=== PATIENT | female | born 1945 | race Caucasian/White ===

== ENCOUNTER 2016-09-22 17:14 | Emergency (ER) | payer MEDICARE ==
[~2016-09-22] VITALS: Ht 160 cm; Wt 68.9 kg
[~2016-09-22 17:14] MED LIST: ALPRAZOLAM0.5 M3 PO; AMLODIPINE BESYL5 MG PO; ASPIRIN ADULT L81 M1 PO; ASPIRIN81 M1 PO; CIPROFLOXACIN500 MG PO; CYCLOBENZAPRINE10 MG PO; Carafate1 GM/10 ML NG; DUONEB 3 MG/3 ML3 M1 INH; HYDROCHLOROTHIA25 MG PO; HYDROCODONE BIT1 T11 PO; HYDRODIURIL25 MG PO; LEVOFLOXACIN500 MG PO; LIPITOR10 MG PO; LIPITOR20 MG PO; LISINOPRIL20 MG PO; METOPROLOL SR25 MG PO; Meclizine25 MG PO; NAPROSYN500 MG PO; NEBULIZER NEB; NIFEREX-150 501 CA1 PO; NORVASC10 MG PO; OMEGA 3 PO; OXYGEN NAS; PLAVIX75 M1 PO; PLAVIX75 MG PO; PRILOSEC20 MG PO; PROTONIX TR40 MG PO; RANITIDINE150 MG PO; SIMVASTATIN40 MG PO; SPIRIVA RESPIMAT4 G1 IH; TOPROL XL25 MG PO; VITAMIN D2400 IU PO; VITAMIN D50000 I3 PO; ZOFRAN ODT4 MG SL
[2016-09-22 17:23] VITALS: BP 188/63
[2016-09-22] MEDS ORDERED: Flovent 220 M220 MCG INH (17:24)
[2016-09-22] MEDS ORDERED: METOPROLOL TART50 M1 PO (17:25)
[2016-09-22] MEDS ORDERED: ATORVASTATIN CA20 M1 PO (17:25)
[2016-09-22] MEDS ORDERED: OYSTER SHELL CA1 T20 PO (17:25)
[2016-09-22] MEDS ORDERED: HYDROCODONE BIT1 T11 PO (19:19)
== END 2016-09-22 19:18 | disposition home or self-care (01) ==
LOC: ED 17:14
DX: S29.011A Strain of muscle and tendon of front wall of thorax, initial encounter (principal); Z88.8 Allergy status to other drugs, medicaments and biological substances; Z79.899 Other long term (current) drug therapy; Z99.81 Dependence on supplemental oxygen; W22.8XXA Striking against or struck by other objects, initial encounter; Y93.89 Activity, other specified; Y92.023 Bedroom in mobile home as the place of occurrence of the external cause; Y99.9 Unspecified external cause status

== ENCOUNTER 2016-09-25 16:18 | Emergency (ER) | payer MEDICARE ==
[~2016-09-25] VITALS: Ht 162.5 cm; Wt 69.9 kg
[~2016-09-25 16:18] MED LIST changes: +ATORVASTATIN CA20 M1 PO; +Flovent 220 M220 MCG INH; +METOPROLOL TART50 M1 PO; +OYSTER SHELL CA1 T20 PO
[2016-09-25 16:24] VITALS: BP 172/62
[2016-09-25] MEDS ORDERED: AVPAK AZITHROM250 M1 PO (17:43)
== END 2016-09-25 17:49 | disposition home or self-care (01) ==
LOC: ED 16:18
DX: J02.9 Acute pharyngitis, unspecified (principal); J84.10 Pulmonary fibrosis, unspecified; Z88.8 Allergy status to other drugs, medicaments and biological substances; Z90.49 Acquired absence of other specified parts of digestive tract; Z79.899 Other long term (current) drug therapy

== ENCOUNTER 2016-11-07 20:37 | Inpatient (IN) | payer MEDICARE ==
[~2016-11-07] VITALS: Ht 157.5 cm; Wt 69.0 kg
--- NOTE | ~2016-11-07 | PR ---
[place], [place] PROGRESS NOTE NAME: [facility] #: [id number] UNIT #: [id number] ROOM: 405 DOCTOR: GALILEO BAILEY MD BIRTHDATE: [birth year] DOS: 11/11/2016 SUBJECTIVE: The patient is still getting dyspnea on exertion and short of breath when walking, although she has been insisting on going home for 2 days now. PHYSICAL EXAMINATION: GENERAL APPEARANCE: The patient is alert and oriented x 3, in no visible distress. VITAL SIGNS: Blood pressure 146/46, heart rate 75 beats per minute, breathing 18 times a minute, temperature of 98.1 degrees Fahrenheit. HEENT AND NECK: Exam within normal limits. CARDIOVASCULAR SYSTEM: Heart rate is regular in rate and rhythm. S1 and S2 normally audible. LUNGS: Somewhat decreased breath sounds. ABDOMEN: Soft, nontender. No obvious organomegaly. Bowel sounds are present. EXTREMITIES: Without significant cyanosis or edema. ASSESSMENT: 1. The patient had acute exacerbation of chronic obstructive pulmonary disease, slowly improving with treatment, but patient still gets short of breath with exertion and becomes hypoxemic. The patient's pulse ox dropped to 85% with ambulation, so she will continue to stay at the hospital for 1 more day for treatment. 2. Benign essential hypertension with controlled blood pressure with treatment. 3. Chronic respiratory failure and oxygen dependence. 4. Chronic obstructive pulmonary disease. 5. Pulmonary fibrosis. 5. Adult failure to thrive. GALILEO BAILEY MD CM:PNTRANS [id number] GALILEO BAILEY MD 11/12/16 0237 interface
--- NOTE | ~2016-11-07 | CON ---
[place], [place] REPORT OF CONSULTATION NAME: KAREL FLORES UNIT #: [id number] ROOM: 405 DOCTOR: KIMANI ARRIOLA MD BIRTHDATE: [birth year] DOS: 11/10/2016 HISTORY OF PRESENT ILLNESS: A 70-year-old female admitted with significant difficulty in breathing. No obvious chest pain. Complains of heartburn. No palpitations. No acute EKG changes suggestion of myocardial injury or infarction. The patient was exerting herself and developed a heartburn. PAST MEDICAL HISTORY: Significant for pulmonary fibrosis, hypertension, aspirin-induced platelet dysfunction, history of GI bleed, history of CVA, chronic respiratory failure. MEDICATIONS: She was on Flovent, DuoNebs, amlodipine, Plavix, and metoprolol. SOCIAL HISTORY: Nonsmoker. Does not use alcohol. Lives at home. REVIEW OF SYSTEMS: CONSTITUTIONAL: No fever, no chills. HEENT: No visual disturbances or hearing problems. CARDIOVASCULAR: As described in HPI. GASTROINTESTINAL: No nausea, no vomiting. GENITOURINARY: No dysuria, hematuria. NEUROLOGIC: Stable. PHYSICAL EXAMINATION: GENERAL: The patient is alert, awake. Hemodynamically stable. VITAL SIGNS: Blood pressure is 140/50. She is in sinus rhythm. HEENT: Unremarkable. NECK: Supple, no JVD. LUNGS: Diminished breath sounds. HEART: Heart sounds are regular. Echocardiogram review showed an excellent ejection fraction. Chest x-ray shows chronic lung disease, mild pulmonary vascular congestion, no evidence of any congestive heart failure. LABORATORY DATA: Hemoglobin 12.6, hematocrit 36.6. Cardiac enzymes are normal. Troponin is negative. Creatinine is 1.4. Echo showed an excellent ejection fraction. IMPRESSION: The patient with acute respiratory distress syndrome, tracheobronchitis. Echo showed an excellent ejection fraction. I do not think this heartburn is related to cardiac. If she has further symptoms, consideration should be given for a stress test. In the meantime, continue the Cardizem 240 daily and the antibiotics as ordered and metoprolol, atorvastatin, clopidogrel, and we will follow up. [place], [place] REPORT OF CONSULTATION NAME: KAREL FLORES UNIT #: [id number] ROOM: 405 DOCTOR: KIMANI ARRIOLA MD BIRTHDATE: [birth year] KIMANI ARRIOLA MD CM:CONSTR:REPORT OF CONSULTATION 0635 11/10/16 1032 interface
--- NOTE | ~2016-11-07 | PR ---
[place], [place] PROGRESS NOTE NAME: KAREL FLORES UNIT #: [id number] ROOM: 405 DOCTOR: ARDEN BIGGS MD BIRTHDATE: [birth year] DOS: 11/09/2016 SUBJECTIVE: The patient is doing fairly well. Her breathing has improved, but during the night, she had one episode of palpitations. Her heart rate went up to 120s. She was just getting up out of bed to plug her phone in, and she got back in bed and noticed that her heart was racing. She does not have any chest pains or palpitations. PHYSICAL EXAMINATION: GENERAL: Today, she is awake and alert and oriented. VITAL SIGNS: Graphic trend shows a pressure of 134/60, pulse of 95, respirations 18, temperature 98.0. LUNGS: Clear. HEART: Regular. ABDOMEN: Obese, soft, nontender. EXTREMITIES: Without any edema. ASSESSMENT AND PLAN: 1. Acute exacerbation of chronic obstructive pulmonary disease. No known history of interstitial lung disease with acute respiratory distress syndrome. The patient also has chronic respiratory failure, stable on the current treatment plan. We did use the dose of the steroids. 2. Benign hypertension, controlled. We will try to avoid beta blockers, could cause more bronchospasm and also add Cardizem for better control of the heart rate. Also, switched the DuoNeb to Xopenex. 3. History of a cerebrovascular accident, on Plavix. She is unable to tolerate aspirin. I will ask Dr. Donato for an opinion. A stat troponin will be ordered to make sure that heartburn is not cardiac. ARDEN BIGGS MD CM:PNTRANS [id number] ARDEN BIGGS MD 11/09/16 0741 interface
--- NOTE | ~2016-11-07 | PR ---
[place], [place] PROGRESS NOTE NAME: KAREL FLORES UNIT #: [id number] ROOM: 405 DOCTOR: GALILEO BAILEY MD BIRTHDATE: [birth year] DOS: 11/12/2016 ADDENDUM SUBJECTIVE: The patient's discharge has been postponed for the last 2 days because she was getting hypoxemic when ambulating with oxygen. Today, her pulse ox did not drop below 91% with ambulation and she is feeling much better, so she will be discharged to home today. OBJECTIVE: VITAL SIGNS: Blood pressure 131/68, heart rate 92 beats per minute, breathing 20 times per minute, temperature 98 degrees Fahrenheit. GENERAL APPEARANCE: The patient is alert and oriented x 3, in no visible distress. HEENT AND NECK: Exam within normal limits. CARDIOVASCULAR SYSTEM: Heart rate is regular in rate and rhythm. S1 and S2 normally audible. LUNGS: Clear to auscultation. ABDOMEN: Soft, nontender. No obvious organomegaly. Bowel sounds are present. EXTREMITIES: Without significant cyanosis or edema. IMPRESSION: 1. Acute over chronic respiratory failure and exacerbation of chronic obstructive pulmonary disease, improved with treatment. The patient to be discharged to home on Medrol Dosepak and she will also take Augmentin for a week and follow up with her PCP on Monday. The patient takes oxygen 2 liters per minute by nasal cannula. 2. Chronic pulmonary fibrosis and chronic respiratory failure. 3. Postmenopausal osteoporosis, followed and treated. 4. Benign essential hypertension. Blood pressures to be monitored and controlled. GALILEO BAILEY MD CM:PNTRANS [phone] GALILEO BAILEY MD 11/12/168 interface
--- NOTE | ~2016-11-07 | DS ---
[place], [place] DISCHARGE SUMMARY NAME: KAREL FLORES UNIT #: [id number] ROOM: 405 DOCTOR: GALILEO BAILEY MD BIRTHDATE: [birth year] DOS: 11/10/2016 DISCHARGE DIAGNOSES: 1. Acute exacerbation of chronic obstructive pulmonary disease, improved with treatment. 2. Benign essential hypertension. 3. Chronic respiratory failure and oxygen dependence. 4. Chronic obstructive pulmonary disease. 5. Pulmonary fibrosis. 6. Cerebrovascular accident. 7. Benign essential hypertension. HOSPITAL COURSE: The patient presented to the Emergency Department. The patient was admitted by Dr. Pearson with complaints of acute respiratory failure and exacerbation of COPD, with previous history of chronic respiratory failure and pulmonary fibrosis. The patient was treated with corticosteroids and IV antibiotics and her breathing has improved. The patient chronically uses oxygen at home, which will be continued. The patient appears to have achieved maximum benefit from this admission and will be discharged to home to follow up with her PCP on Monday. Dr. Donato, the supervisor film processing was consulted who did not think that the patient's symptoms were of cardiac nature and she was started on Cardizem orally and beta blockers were stopped because of her acute respiratory failure. Echocardiogram was performed, which was normal. Benign essential hypertension with controlled blood pressures, now patient on Cardizem instead of beta vanessa and metoprolol. Blood pressure and heart rate are controlled. Previous history of CVA. The patient cannot tolerate aspirin, so she was continued on Plavix. LABORATORY DATA: Troponin I level was negative. Blood cultures negative. Blood gases were baseline. White cell count of 12,000, hemoglobin 12.6, normal differential count. DISCHARGE MANAGEMENT: 1. Medrol Dosepak, Augmentin for 1 week. The patient on Xopenex nebulizer treatments at home to continue every 6 hours, Protonix 40 mg b.i.d., Lipitor 20 mg a day, Plavix 75 mg a day, amlodipine 10 mg a day, Xanax 0.5 mg at bedtime p.r.n. 2. Followup with PCP on Monday. 3. Oxygen 2 liters per minute. [place], [place] DISCHARGE SUMMARY NAME: KAREL FLORES UNIT #: [id number] ROOM: 405 DOCTOR: GALILEO BAILEY MDDATE: [birth year] GALILEO BAILEY MD CM:ANA [phone] GALILEO BAILEY MD 11/10/162050 interface
--- NOTE | ~2016-11-07 | WRIGHTHP ---
[place], [place] PATIENT HISTORY AND PHYSICAL EXAM NAME: KAREL FLORES [facility] #: [id number] UNIT #: [id number] ROOM: 405 DOCTOR: ARDEN BIGGS MD BIRTHDATE: [birth year] DOS: 11/08/2016 HISTORY OF PRESENT ILLNESS: This patient is 70 years old. The patient is not known to me, comes in with complaints of difficulty breathing. She denies having any chest pains, palpitations, does not have any fever or chills, does not have any abdominal pain, nausea, any emesis. She is moving to another apartment and is exerting herself a lot. She is not sure whether the dust has caused this current exacerbation. PAST MEDICAL HISTORY: Significant for; 1. Last hospitalization in 11/2015 with GI bleed. 2. 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 3. Benign hypertension. 4. Postmenopausal osteoporosis. 5. Pulmonary fibrosis. 6. History of cerebrovascular accident. 7. Chronic respiratory failure. MEDICATIONS: That the patient currently on are Flovent 2 puffs twice daily, breathing treatments with DuoNeb q.4 hours., oxygen 2 liter per minute nasal cannula, amlodipine 10 daily, atorvastatin 20 daily, Plavix 75 daily, metoprolol 25 at bedtime and 50 mg in the morning, Protonix 40 daily. SOCIAL HISTORY: Nonsmoker, does not use any alcohol. Lives at home. PHYSICAL EXAMINATION: GENERAL: She is awake and alert and oriented, in mild respiratory distress. VITAL SIGNS: Temperature is 98.7, pulse of 70, respirations 20, afebrile. LUNGS: Diminished breath sounds. No wheezes, rales or rhonchi heard. HEART: Regular. ABDOMEN: Obese, soft, nontender. EXTREMITIES: Without any edema. ASSESSMENT AND PLAN: 1. Acute respiratory distress syndrome in a patient with chronic respiratory failure. The patient has been admitted. IV steroids and breathing treatments have been ordered. 2. Acute tracheobronchitis on antibiotics have been ordered. Chest x-ray shows no pathology other than chronic lung changes with possible mild vascular congestion. ABG does not show any evidence of hypoxemia this morning. We will order one dose of Lasix and an echocardiogram will be ordered. Her last echocardiogram was many years ago. 3. Benign hypertension, controlled. [place], [place] PATIENT HISTORY AND PHYSICAL EXAM NAME: KAREL FLORES UNIT #: [id number] ROOM: 405 DOCTOR: ARDEN BIGGS MD BIRTHDATE: [birth year] ARDEN BIGGS MD CM:HISPHYS:PATIENT HISTORY AND PHYSICAL EXAMINATION 5 9 ARDEN BIGGS MD 11/08/16829 interface
[~2016-11-07 20:37] MED LIST changes: +AVPAK AZITHROM250 M1 PO
[2016-11-07 20:54] VITALS: BP 180/84
[2016-11-07 20:59] LABS: BASO # 0.1 10*3/uL (0.0-0.1); BASO % 0.5 % (0.0-1.0); EOS # 0.2 10*3/uL (0.0-0.4); EOS % 1.5 % (1.0-4.0); HEMATOCRIT 36.7 % (37.0-47.0); HEMOGLOBIN 12.6 g/dl (12.0-16.0); LYMPH # 2.5 10*3/uL (1.3-4.4); LYMPH % 20.4 % (27.0-41.0); MEAN CELL VOLUME 88.2 fl (81.0-99.0); MEAN CORPUSCULAR HGB 30.3 pg (27.0-31.0); MEAN CORPUSCULAR HGB CONC 34.3 g/dl (33.0-37.0); MONO # 0.6 10*3/uL (0.1-1.0); NEUT # 8.8 10*3/uL (2.3-7.9); NEUT % 72.1 % (47.0-73.0); PLATELET COUNT AUTOMATED 281 10*3/uL (130-400); RED BLOOD COUNT 4.16 10*6/uL (4.10-5.10); RED CELL DISTRI WIDTH 13.8 % (0-14.5); WHITE BLOOD COUNT 12.2 10*3/uL (4.8-10.8)
[2016-11-07 21:16] LABS: ALBUMIN 3.7 gm/dl (3.1-4.5); CREATININE 1.44 mg/dL (0.55-1.02); MAGNESIUM 1.9 mg/dL (1.5-2.1); POTASSIUM 3.4 mmol/L (3.5-5.1); TOTAL PROTEIN 8.5 gm/dL (6.4-8.2)
[2016-11-07 21:17] LABS: TROPONIN I 0.043 ng/ml (<0.045)
[2016-11-07 21:59] VITALS: BP 148/61
[2016-11-07 23:54] LABS: ABG BASE EXCESS -1.1 mmol/L (-2.0-2.0); ABG HCO3 22.3 mmol/l (22-26); ABG O2 SATURATION 98.5 % (95-97); ARTERIAL BLOOD GAS PCO2 34.8 mmHg (35-45); ARTERIAL BLOOD GAS PH 7.423 (7.35-7.45)
[2016-11-08 00:45] VITALS: BP 160/51
[2016-11-08] MEDS ORDERED: METOPROLOL SUCC25 M2 PO (03:47)
[2016-11-08 08:00] VITALS: BP 123/65
[2016-11-08 12:00] VITALS: BP 128/58
[2016-11-08 16:00] VITALS: BP 143/73
[2016-11-08 20:00] VITALS: BP 129/71
[2016-11-09] VITALS: BP 134/60
[2016-11-09 08:00] VITALS: BP 151/79
[2016-11-09 12:00] VITALS: BP 135/61
[2016-11-09 16:00] VITALS: BP 142/58
[2016-11-09 20:00] VITALS: BP 126/49
[2016-11-10] VITALS: BP 143/54
[2016-11-10 08:00] VITALS: BP 143/51
[2016-11-10 16:00] VITALS: BP 139/56
[2016-11-10] MEDS ORDERED: DILTIAZEM CD240 MG PO (18:49)
[2016-11-10] MEDS ORDERED: MEDROL DOSEPAK4 MG PO (18:52)
[2016-11-10] MEDS ORDERED: AUGMENTIN 875-875 MG PO (18:52)
[2016-11-10 20:00] VITALS: BP 142/50
[2016-11-10 22:00] VITALS: BP 142/50
[2016-11-11] VITALS: BP 120/55; BP 142/50
[2016-11-11 08:00] VITALS: BP 135/43
[2016-11-11 12:00] VITALS: BP 144/62
[2016-11-11 16:00] VITALS: BP 146/46
[2016-11-11 20:00] VITALS: BP 139/68
[2016-11-12] VITALS: BP 130/65
[2016-11-12 08:00] VITALS: BP 114/52
[2016-11-12 12:00] VITALS: BP 120/98
[2016-11-12 16:00] VITALS: BP 131/68
== END 2016-11-12 17:15 | disposition home or self-care (01) | DRG 189 ==
LOC: ED 20:37 → 4E 23:45 → EDHOLD 23:45 → 4E 11-08 00:14
PROVIDERS: Emergency Medicine Emergency Medical Services; Family Medicine; ADMIT Internal Medicine
DX: J96.21 Acute and chronic respiratory failure with hypoxia (principal); J44.0 Chronic obstructive pulmonary disease with (acute) lower respiratory infection; J84.10 Pulmonary fibrosis, unspecified; Z99.81 Dependence on supplemental oxygen; J44.1 Chronic obstructive pulmonary disease with (acute) exacerbation; I10 Essential (primary) hypertension; J20.9 Acute bronchitis, unspecified; M81.0 Age-related osteoporosis without current pathological fracture; R62.7 Adult failure to thrive; Z86.73 Personal history of transient ischemic attack (TIA), and cerebral infarction without residual deficits

== ENCOUNTER 2016-11-23 18:26 | Inpatient (IN) | payer MEDICARE ==
[~2016-11-23] VITALS: Ht 160 cm; Wt 72.4 kg
--- NOTE | ~2016-11-23 | PR ---
[place], [place] PROGRESS NOTE NAME: KAREL FLORES UNIT #: [id number] [facility] DOCTOR: ARDEN BIGGS MD BIRTHDATE: [birth year] DOS: SUBJECTIVE: The patient is resting on the ventilator without any new problems in the last 24 hours. OBJECTIVE: VITAL SIGNS: Graphic trend shows a pressure 137/51, pulse of 88, respirations 23, temperature 98.5. LUNGS: Diminished breath sounds, few scattered wheezes heard. HEART: Regular. ABDOMEN: Obese, soft. EXTREMITIES: Without any edema. LABORATORY DATA: Sputum culture done on did show Pseudomonas aeruginosa, for the patient has been started on ceftazidime. Repeat urine culture done on the same day at a different time does not show any bacterial growth. Chest x-ray shows fibrotic changes, no other pathology was seen. ASSESSMENT AND PLAN: 1. Interstitial lung disease with pulmonary fibrosis with acute exacerbation causing acute hypoxic respiratory failure, status post intubation. 2. Benign hypertension, controlled with a negative stress test. 3. Carotid atherosclerosis with 50-69% stenosis bilaterally. The patient may require an MRA of the carotids at a later date when the patient is more able. 4. History of cerebrovascular accident, on Plavix and aspirin, which are being continued. RADEN BIGGS MD CM:PNTRANS [id number] ARDEN BIGGS MD 11/30/16 0325 interface
--- NOTE | ~2016-11-23 | PR ---
[place], [place] PROGRESS NOTE NAME: KAREL FLORES [facility] #: [id number] UNIT #: [id number] ROOM: 412 DOCTOR: ARDEN BIGGS MD BIRTHDATE: [birth year] DOS: 11/25/2016 SUBJECTIVE: The patient is not having any new complaints. Appreciate Dr. Muse's, Dr. Marie's and Dr. Donato's input. OBJECTIVE: VITAL SIGNS: Graphic trend shows a pressure of 135/65, pulse of 85, respirations 18, temperature 97.9. LUNGS: Clear. HEART: Regular. ABDOMEN: Obese, soft, nontender. EXTREMITIES: Without any edema. ASSESSMENT AND PLAN: 1. Acute exacerbation of chronic obstructive pulmonary disease with underlying pulmonary fibrosis on CT of the chest. The patient has been started on antibiotics and steroids. 2. Chronic respiratory failure with hypoxemia, possibly from underlying exacerbation of COPD. Steroids and antibiotics to be continued. 3. Benign hypertension, controlled with a negative stress test. 4. Precordial chest pain, negative stress test. Carotid Doppler was ordered today as advised by Dr. Muse. ARDEN BIGGS MD CM:PNTRANS 0850 [id number] ARDEN BIGGS MD 11/25/16 1652 interface
--- NOTE | ~2016-11-23 | PROC NOTE ---
[place], [place] PROCEDURE NOTE NAME: KAREL FLORES UNIT #: [id number] ROOM: [facility] DOCTOR: RE PLATA MD,MISHA BIRTHDATE: [birth year] DOS: 11/27/2016 PREOPERATIVE DIAGNOSES: The patient with hemoptysis, acute respiratory failure, and bilateral pulmonary infiltration. POSTOPERATIVE DIAGNOSES: The patient with hemoptysis, acute respiratory failure, and bilateral pulmonary infiltration. PROCEDURE DESCRIPTION: Informed consent obtained from the patient and family members. The patient was continued on mechanical ventilation for sedation. Procedure was done in negative pressure isolation Intensive Care Unit. The video fiberoptic bronchoscope advanced through the endotracheal tube, lower part of the trachea, which shows some clotted blood secretions, mixed with mucus, suctioned out to the sunday level. The tip of the endotracheal tube was noted just at the sunday level which was adjusted to 2.5 cm above the sunday level. After that, right upper, right middle, right lower, left upper, and lingular lower lobe bronchi were all examined. The patient was noted ____ mucus mixed with some old clotted blood, removed from the endobronchial tree bilaterally. Some superficial hemorrhages of the mucosa noted, may be related to suction trauma, but there was no active bleeding noted. The procedure was well tolerated by the patient without any complications. Bronchial washings sent for all the appropriate culture including cytology and for pneumocystis as well. Postoperative findings were discussed with the patient's family members in detail personally. MISHA GRIMALDO MD CM:PROCNOTE:PROCEDURE NOTE 1512 0820 MISHA PLATA MD
--- NOTE | ~2016-11-23 | PR ---
[place], [place] PROGRESS NOTE NAME: KAREL FLORES UNIT #: [id number] ROOM: [facility] DOCTOR: KIMANI ARRIOLA MD BIRTHDATE: [birth year] DOS: 11/29/2016 SUBJECTIVE: 24-hour events noted. Discussed with the nursing staff. The patient had a bronchoscopy done yesterday. The patient, I saw in the intensive care unit continues to be intubated. She had a stress test, which shows no evidence of ischemia. Ejection fraction well preserved. The patient has no further episodes, continues to be intubated. ABGs are much better. The patient is being seen by Dr. Marie and the patient has bad pulmonary fibrosis and she is being evaluated for that. She is on antibiotics and patient had recurrent episodes of Pseudomonas aeruginosa pneumonia. Medications have been adjusted and I discussed with Dr. Pearson also. Antibiotics have been changed. The patient's review of systems is not possible because of the critical nature and patient is intubated. PHYSICAL EXAMINATION: VITAL SIGNS: Blood pressure today is 130/50. The patient is in sinus rhythm. NECK: Supple, no JVD. LUNGS: Diminished breath sounds. HEART: Sounds are regular. ABDOMEN: Soft, nontender. NEUROLOGIC: Difficult to assess, but she is moving all the extremities. LABORATORY DATA: Hemoglobin 8.8, hematocrit 27.3. Electrolytes are normal. Creatinine is 1. Chest x-ray shows no significant change, diffuse interstitial disease throughout both lungs. IMPRESSION: 1. Pulmonary fibrosis. 2. Respiratory failure status post bronchoscopy. 3. History of a mild azotemia. 4. Hypertension. PLAN: Continue the present care. Continue the pulmonary toilet, continue antibiotics probably slowly wean her off from the ventilator. Condition is guarded and we will follow up. [place], [place] PROGRESS NOTE NAME: KAREL FLORES UNIT #: [id number] ROOM: [facility] DOCTOR: KIMANI ARRIOLA MD BIRTHDATE: [birth year] KIMANI ARRIOLA MD CM:PNTRANS [phone] KIMANI ARRIOLA MD 11/29/16 2328 interface
--- NOTE | ~2016-11-23 | PR ---
[place], [place] PROGRESS NOTE [id number] #: [id number] ROOM: [facility] DOCTOR: GALILEO BAILEY MD BIRTHDATE: [birth year] DOS: 11/26/2016 SUBJECTIVE: The patient with acute respiratory failure with bilateral interstitial infiltrates and lymphadenopathy, sarcoidosis versus chronic hypersensitivity pneumonitis is being considered. The patient is on BiPAP and may require intubation and mechanical ventilation. Dr. Marie is following. PHYSICAL EXAMINATION: VITAL SIGNS: Blood pressure 144/58, heart rate 92 beats per minute, breathing 30 times per minute, temperature 98 degrees Fahrenheit. GENERAL APPEARANCE: The patient is alert and oriented x 3, in no visible distress. Generalized weakness and morbid obesity. LUNGS: Clear to auscultation. ABDOMEN: Soft, nontender. No obvious organomegaly. Bowel sounds are present. EXTREMITIES: Without significant cyanosis or edema. IMPRESSION AND PLAN: 1. The patient has acute over chronic respiratory failure as mentioned above with bilateral interstitial infiltrates and lymphadenopathy, possible sarcoidosis versus chronic hypersensitivity pneumonitis, remains on BiPAP in the ICU and being closely monitored. 2. Acute pneumonia, being treated with ceftriaxone and followed by quarry plant crusher operator, Dr. Marie. The patient also has some leukocytosis with white cell count of 13,100. 3. Some hemoptysis, apparently secondary to pneumonitis. 4. Slight elevation of cardiac enzymes, and chest pains earlier on, being followed by Dr. Donato, the job site supervisor. Cardiac stress test was negative. 5. Benign essential hypertension. Blood pressure is being monitored, treated and controlled. GALILEO BAILEY MD CM:PNTRANS [id number] GALILEO BAILEY MD 11/27/16 1720 interface
--- NOTE | ~2016-11-23 | CON ---
[place], [place] REPORT OF CONSULTATION [id number] UNIT #: [id number] ROOM: 412 DOCTOR: RE PLATA MD,MISHA BIRTHDATE: [birth year] DOS: 11/24/2016 PULMONARY CONSULTATION, EVALUATION AND MANAGEMENT The patient was seen with [id number] encounter. The history and physical examination was personally performed. All the labs was personally reviewed. The note which has done by the medical record assistant was approved as well. This is a 70-year-old white female who has been known with past history of pulmonary fibrosis, admitted to the hospital. The patient of Dr. Alana Pearson on 11/23/2016. The patient has been admitted to the hospital. The patient was complaining of pain, which described as burning in the middle portion of the chest. She does have a coughing, which has been noted with clear sputum expectoration and blood-tinged sputum as well. She denies any symptoms of chest tightness. Denies any ____ angina pain. The troponin were noted mildly elevated as well. The patient has been recently hospitalized and admitted in the hospital, treated and discharged home with the medical management of abnormal respiratory symptoms. She was discharged home for the patient after medical management on 11/07/2016 to 11/10/2016. The patient stated that she has been noted with exertional hypoxia at that time as well, usually using oxygen supplementation 2 liters nasal cannula. REVIEW OF SYSTEMS: Already completed by the medical record assistant. Past medical history, family history, social history, surgical history: Please refer to my consultation of 11/18/2015 as well. MEDICATIONS: Listed as use of Lipitor, Protonix, Cardizem, Plavix, Norvasc, Lovenox 30 mg for DVT prophylaxis, DuoNeb, Xanax, and Flonase. DRUG ALLERGIES: The patient was noted as allergies to the Carafate. PHYSICAL EXAMINATION: GENERAL: A 70-year-old female who has been currently noted sitting comfortably on her bed without any distress. VITAL SIGNS: Height of 5 feet 3 inches, weight of 154 pounds, BMI 27.2. Normal temperature noted in the past 24 hours. Respiratory rate 16-20, heart rate 92-78, blood pressure 148/56-159/62. Intake was not recorded, output 500 mL recorded since last 24 hours. The pulse oxygen saturation on 4 L nasal cannula was noted as 93-96% saturation. HEENT: Shows mild obesity. Head was atraumatic. Eyes nonicterus. NECK: Supple. CARDIOVASCULAR: S1, S2 is audible. LUNGS: The patient was noted without any wheezing. Inspiratory crackles noted middle lower portion of the lungs bilaterally. ABDOMEN: Soft, nontender. Bowel sounds present. CENTRAL NERVOUS SYSTEM: Cranial nerves was noted without any focal deficit. Cranial nerve was noted 2-12 intact. No focal deficits. MUSCULOSKELETAL: No deformities. [place], [place] REPORT OF CONSULTATION NAME: KAREL FLORES UNIT #: [id number] ROOM: 412 DOCTOR: RE PLATA MD,MISHA BIRTHDATE: [birth year] SKIN: Shows area of bruising related to the current medication used by the patient. LABORATORY DATA: CBC of 96. WBC count 16.3, hemoglobin 11.4, hematocrit 34.5, platelet count was normal. CMP of 96, BUN 9, creatinine 1.12, troponin minimally elevated at 0.082 and there was still noted as some mass. Troponin of 0.94 in the last 24 hours assessment. Chest x-ray that was done, 1 view on 11/23/2016 shows patchy infiltration. The patient with pulmonary fibrosis, chronic changes noted in the lower lungs. CT scan of the chest that was done on 11/24/2016 without contrast was reviewed shows persistent [id number] mediastinal and hilar lymphadenopathy. The patient with a short dimension noted at 1.4 cm in size. The patient was noted with diffuse subpleural reticular infiltration with honeycombing with traction bronchiectasis. The patient predominantly in the upper lungs as well. There were patchy areas of ground glass opacity which has been noted appeared in the lower lungs as any finding as compared to the past. The CT scan of the chest comparison, which was done on her previous assessments on 11/17/2015. IMPRESSION: 1. The patient who has been currently admitted to the hospital with findings of hemoptysis has of interstitial lung disease. Current findings were not consistent with classical diagnosis of usual interstitial pneumonitis. Possibility of sarcoidosis. The patient remains in consideration versus chronic hypersensitivity pneumonitis, and lymphadenopathy. Hemoptysis may be considered as a result of the current bronchiectasis, which has been noted traction bronchiectasis, acute superimposed infection that has bronchitis is more likely. Acute normal troponin. The patient's significance was unknown. 2. The patient with acute on chronic hypoxic respiratory failure with increased oxygen requirement secondary to current acute flareup of her respiratory condition. Noninfectious etiology including pulmonary hemorrhage in patient would be considered as well based on the current CT scan of the chest findings. The workup for the connective tissue disorder in the last admission in 2016. The patient in office was noted with mild elevation of aldolase. The vasculitis workup. The patient has connective disorder, chronic fungal antibodies were all noted as negative. The AXEL level was noted normal as well. Normal AXEL level does not rule out the possibility of sarcoidosis. PLAN AND RECOMMENDATIONS: The patient will be treated symptomatically at this time. The sputum for Gram stain and culture will be ordered. Use of corticosteroids to help improve the current known infectious, etiology as well. Start the patient on antibiotics such as Rocephin 1 gram IV daily as well. Oral doxycycline will be added to the treatment as well. Monitor respiratory status. Titrate oxygen supplementation to maintain saturation 92% or greater. Other supportive therapy, plan of management care, usual treatment, other supportive plan of therapy and care plan. Other additional treatment changes will be done based on progression of the illness. The patient is already being assessed. From the cardiac standpoint for the abnormal troponin. Wait for their further recommendation and assessment with the current Cardiolite stress testing results. [place], [place] REPORT OF CONSULTATION NAME: KAREL FLORES UNIT #: [id number] ROOM: 412 DOCTOR: MISHA CLARK MD BIRTHDATE: [birth year] MISHA GRIMALDO MD CM:CONSTR:REPORT OF CONSULTATION 1232 11/25/16 0628 interface
--- NOTE | ~2016-11-23 | PR ---
[place], [place] PROGRESS NOTE NAME: KAREL FLORES UNIT #: [id number] ROOM: [facility] DOCTOR: RE PLATA MD,MISHA BIRTHDATE: [birth year] DOS: 11/28/2016 Total time pulmonary critical evaluation and management today 38 minutes. MISHA GRIMALDO MD CM:PNTRANS [id number] MISHA PLATA MD 11/29/16 1046 GISELA BYRNE MIS.R
--- NOTE | ~2016-11-23 | CON ---
[place], [place] REPORT OF CONSULTATION NAME[id number] UNIT #: [id number] ROOM: 412 DOCTOR: FARHAN BOWSER DO BIRTHDATE: [birth year] DOS: 11/24/2016 CHIEF COMPLAINT: Shortness of breath. HISTORY OF PRESENT ILLNESS: The patient is a 70-year-old female who presents from home with chief complaint of shortness of breath. The patient states that she was recently admitted in late October and stayed here in the hospital for 5 days during her last visit. This time, she is having chief complaint of shortness of breath increasing since yesterday and normally, she is on 2 liters oxygen and now she has to increase it to 4 liters oxygen. Her saturations have been 94-95% on 4 liters oxygen. She complains of cough with mild blood-tinged cough, wheezing for the last couple of days. She is having shortness of breath without exertion and even with sitting on her bed. She also complains of chest pain, mostly burning-like sensation in the middle part of her chest and her pain worsens with coughing. She denies any fever, chills or any other complaints at this time. PAST MEDICAL HISTORY: Significant for: 1. Chronic respiratory failure, dependent on home oxygen. 2. Pulmonary fibrosis. 3. Benign hypertension. 4. History of cerebrovascular disease. 5. General anxiety disorder. PAST SURGICAL HISTORY: Cholecystectomy, hysterectomy, cardiac catheterization years ago by Dr. Donato. ALLERGIES: She is allergic to ASPIRIN. MEDICATIONS: She is on Plavix, Flovent, breathing treatment, Cardizem. SOCIAL HISTORY: Nonsmoker, does not use any alcohol. REVIEW OF SYSTEMS: GENERAL: No fever, chills, nausea or vomiting. HEENT: No vision changes, blurred vision or nose congestion. CARDIOVASCULAR: No chest pain, palpitations, lower extremity edema. RESPIRATORY: Shortness of breath; cough; dyspnea on exertion; mild wheezing; mild sputum production, blood tinged. ABDOMINAL: No abdominal pain, nausea, vomiting, diarrhea, constipation, or melena. GENITOURINARY: No dysuria, hematuria or increase in frequency. NEUROLOGIC: No lightheadedness, dizziness, confusion. PSYCHIATRIC: No depression, anxiety, or substance abuse. ENDOCRINE: No polydipsia, heat intolerance, or cold intolerance. EXTREMITIES: No rashes, lesions or ulcers. PHYSICAL EXAMINATION: VITAL SIGNS: Temperature of 98.3, pulse of 92, respiratory rate 18, blood pressure 148/56, bedside pulse oximetry is 93% on nasal cannula with 4 liters [place], [place] REPORT OF CONSULTATION NAME: KAREL FLOERS UNIT #: [id number] ROOM: 412 DOCTOR: FARHAN BOWSER DO BIRTHDATE: [birth year] oxygen. GENERAL: She is awake, alert and oriented. SKIN: Soft turgor and instant . HEENT: Normocephalic, atraumatic. Pupils equal and reactive to light. Nares are patent. No discharge. LUNGS: Diminished with slight expiratory wheezes throughout. HEART: Regular rate and rhythm. No murmurs, rubs or gallops. EXTREMITIES: No edema. Able to move all extremities without pain or limitation. NEUROLOGIC: Alert and oriented x 3. Speech intact. Sensation intact. PSYCHOLOGICAL: Mood and affect are appropriate. LABORATORY DATA: Hematology: White cell count is 16.3, hemoglobin is 11.4, hematocrit is 34.5. Chemistry: Her first troponin was 0.094, second was 0.084 and third was 0.084. Sodium 136, BUN 9, creatinine 1.12, glucose of 130. Serology: TB test pending. IMAGING: Chest x-ray done in the ED on 11/23/2016 showed no adverse change from previous exams, chronic interstitial changes noted. November 24 myocardial perfusion scan results showed normal myocardial perfusion, no evidence of ischemia. CT chest done on 11/24/2016 showed stable small bilateral pulmonary nodules measuring up to 5 mm, underlying pulmonary fibrosis and mild mediastinal adenopathy, presumably reactive. ASSESSMENT AND PLAN: 1. Chest pain with slight elevation of troponin. Cardiology has been consulted. 2. Chronic respiratory failure with repeat episodes of desaturation at home. Plan per Dr. Grimaldo's note. 3. Benign hypertension, controlled. 4. Please look at the plan described in Dr. Grimaldo's note. FARHAN BOWSER DO MISHA GRIMALDO MD CM:CONSTR:REPORT OF CONSULTATION 1406 11/24/16 1522 interface
--- NOTE | ~2016-11-23 | PR ---
[place], [place] PROGRESS NOTE NAME: KAREL FLORES [facility] #: [id number] UNIT #: [id number] ROOM: 412 DOCTOR: RE PLATA MD,MISHA BIRTHDATE: [birth year] DOS: 11/25/2016 SUBJECTIVE: The patient was independently seen and examined. History was confirmed. The labs were reviewed. Decision made for this management were personally done as well. The note done by the medical library assistant was approved. The patient reported reduction in symptoms of cough or sputum expectoration. Hemoptysis has been noted very minimal at this time or none. The patient expectorated small amount of sputum. Denies symptoms of chest pain or abdominal pain. OBJECTIVE: VITAL SIGNS: The patient showed normal temperature, respirations 18, heart rate 85, blood pressure 140/60-135/65. Pulse oxygen saturation of the patient was noted on 4 L nasal cannula 91-95 percent saturation of oxygen. HEENT: Examination shows no acute change. CARDIOVASCULAR: S1, S2 audible. LUNGS: Was noted without any wheezing, crackles in the lungs, unchanged. IMPRESSION: 1. The patient who has been noted with bilateral interstitial infiltration with lymphadenopathy. The exact etiology was not confirmed but suspected possibility of sarcoidosis, chronic hypersensitivity pneumonitis. 2. Superimposed pulmonary infiltration with possibility of acute pneumonia, noninfectious. Etiology for this patient has been considered and being treated. 3. Insignificant hemoptysis secondary to underlying pulmonary infection. PLAN OF TREATMENT: Await for the results of the sputum culture if the patient expects his sputum to be sent to the lab. In the meantime, continue empirical antibiotics, corticosteroids administration and other treatment. Supportive therapy, plan of management and care. MISHA GRIMALDO MD CM:PNTRANS [id number] MISHA PLATA MD 11/26/16 0515 interface
--- NOTE | ~2016-11-23 | PR ---
[place], [place] PROGRESS NOTE NAME: KAREL FLORES UNIT #: [id number] ROOM: 412 DOCTOR: FARHAN BOWSER DO BIRTHDATE: [birth year] DOS: 11/25/2016 SUBJECTIVE: The patient was seen and evaluated today with Dr. Grimaldo. The patient is alert, awake and responsive. The patient denies any nausea, vomiting, fevers, chills, chest pain. The patient states that her shortness of breath has been improving and she did not have a lot of red speckles in her sputum, which has also been improving. OBJECTIVE: VITAL SIGNS: Temperature 98.6, pulse 85, respiratory rate 18, blood pressure 140/62, pulse ox is 91% on 4 liters of nasal cannula. HEENT: Shows no change. NECK: Supple. CARDIOVASCULAR: S1, S2 audible. LUNGS: The patient was noted without any wheezing, inspiratory crackles are noted in the middle portion of the lungs bilaterally. ABDOMEN: Soft, nontender, nondistended. EXTREMITIES: No edema noted. LABORATORY DATA: Hematology: White cell count of 16.3, hemoglobin of 11.4, platelet count of 182. Sodium 136, BUN 9, creatinine of 1.12 and glucose of 113. The patient had a stress test done yesterday. Lexiscan stress test showed no change in ST-T wave changes. Myocardial perfusion scan was normal. CT scan done on 11/24/2016 showed small bilateral pulmonary nodules, measuring up to 5 mm and underlying pulmonary fibrosis; mild mediastinal adenopathy, presumably reactive; coronary artery calcification. ASSESSMENT: 1. Interstitial lung disease with hemoptysis, likely interstitial pneumonitis, possible sarcoidosis. 2. Hemoptysis secondary to current bronchiectasis. 3. Acute superimposed infection. 4. Chronic hypoxic respiratory failure. PLAN: 1. Symptomatic treatment. 2. Await Gram stain and culture. 3. Continue steroids, Rocephin and doxycycline. 4. Maintain oxygen saturation above 92%. 5. Follow up with Cardiology regarding stress test and cardiac assessment. FARHAN BOWSER DO [place], [place] PROGRESS NOTE NAME: KAREL FLORES UNIT #: [id number] ROOM: [facility] DOCTOR: FARHAN BOWSER DO BIRTHDATE: [birth year] MISHA GRIMALDO MD CM:PNTRANS FARHAN BOWSER DO 11/25/16 1317 interface
--- NOTE | ~2016-11-23 | ST ---
[place], [place] EXERCISE STRESS TEST REPORT NAME: [id number] UNIT #: [id number] ROOM: 412 DOCTOR: ARDEN BIGGS MD BIRTHDATE: [birth year] DOS: 11/23/2016 REASON FOR TESTING: Evaluation of chest pain. After obtaining consent, the patient was subjected to Power protocol. Resting heart rate was 92 with a blood pressure 142/54. EKG showed sinus, nonspecific ST-T wave changes. After that, the patient was injected with Lexiscan 0.4 mg. The patient did not have any complaints during the Lexiscan infusion. After the infusion was over, she was injected with Cardiolite and stress images were taken. ASSESSMENT AND PLAN: Lexiscan stress test without any ST-T wave changes or arrhythmias. Cardiolite images are pending. ARDEN BIGGS MD CM:STRESS:EXERCISE STRESS TEST REPORT [id number] ARDEN BIGGS MD
--- NOTE | ~2016-11-23 | PR ---
[place], [place] PROGRESS NOTE NAME: KAREL FLORES UNIT #: [id number] ROOM: [facility] DOCTOR: ARDEN BIGGS MD BIRTHDATE: [birth year] DOS: SUBJECTIVE: The patient is intubated and appears comfortable. OBJECTIVE: VITAL SIGNS: Graphic trend shows a pressure of 139/52, pulse of 87, respirations 17, temperature 97.6. LUNGS: Diminished breath sounds. HEART: Regular. ABDOMEN: Soft. EXTREMITIES: the neck showed a large mass-like lesion on the right side, which is new for this patient. LABORATORY DATA: This morning shows glucose of 346, BUN 85, creatinine 1.54, sodium 144, potassium 5.1, chloride 109, bicarbonate 23, calcium 6.3. WBC count is 16.8, hemoglobin 10.0, hematocrit 30.4. Blood gas; ABG 7.3, pCO2 of 46, pO2 of 128, bicarbonate 22.5. Chest x-ray unremarkable other than some right lower lobe atelectasis. ASSESSMENT AND PLAN: 1. Acute hypoxic respiratory failure, on ventilator. Management by Dr. Marie. 2. Elevated white cell count with pseudomonas of the sputum, on IV antibiotics, part of the elevation in the white cell count could be steroid effect. 3. Hyperglycemia noted, possibly steroid induced. Insulin will be started. 4. Acute kidney injury with an elevated BUN and creatinine noted today. Re-adjust medications to avoid further nephrotoxicity. 5. Benign hypertension with history of recent stress test which is negative. ARDEN BIGGS MD CM:PNTRANS [id number] ARDEN BIGGS MD 11/30/16 1015 interface
--- NOTE | ~2016-11-23 | PR ---
[place], [place] PROGRESS NOTE NAME: KAREL FLORES UNIT #: [id number] ROOM: [facility] DOCTOR: TWYLA WELSH MD BIRTHDATE: [birth year] DOS: SUBJECTIVE: The patient is short of breath. She is on BiPAP now, she still complains of vague heaviness in the chest, but no palpitations. She has not had any much cough. PHYSICAL EXAMINATION: GENERAL: She seems fairly comfortable despite having BiPAP on. She is oriented and is not in any distress. VITAL SIGNS: Pulse is 72 and regular, blood pressure 147/57. NECK: Normal JVP. Carotid bruits are present and previously noted. LUNGS: she has grade 3/6 murmur of aortic stenosis, lots of fine crackles in the lower half of the lung reid. EXTREMITIES: No edema of the lower extremities. DIAGNOSTIC DATA: Monitor shows normal sinus rhythm. IMPRESSION: This patient had chest pain that was noncardiac, stress test demonstrated no ischemia. Pulmonary fibrosis is causing her respiratory problems that is being addressed. I saw this patient on behalf of Dr. Donato. TWYLA WELSH MD CM:PNTRANS [id number] TWYLA WELSH MD 11/27/16 0114 interface
--- NOTE | ~2016-11-23 | WRIGHTHP ---
[place], [place] PATIENT HISTORY AND PHYSICAL EXAM NAME: KAREL FLORES [facility] #: [id number] UNIT #: [id number] ROOM: 412 DOCTOR: ARDEN BIGGS MD BIRTHDATE: [birth year] DOS: 11/23/2016 HISTORY OF PRESENT ILLNESS: This patient is very well known to us. She came in with complaints of chest pain, mostly a burning-like sensation in the middle part of the chest. The patient also has had a slight cough and she has coughed up some blood and also noted dropping saturations. She was admitted to the hospital recently in October 2016 with acute exacerbation of COPD. She was discharged on the by Dr. Garcia and she was advised to increase the oxygen supplementation to 3 liters on ambulation, otherwise on 2 liters. The patient states that she did do that at home, but continues to notice that oxygen saturation was dropping when she tries to do any activity at all. She denies having any fever, any chills, any shortness of breath. PAST MEDICAL HISTORY: Significant for: 1. Chronic respiratory failure, oxygen dependent. 2. Pulmonary fibrosis. 3. Benign hypertension. 4. History of cerebrovascular accident. 5. Generalized anxiety disorder. ALLERGIES: She is allergic to ASPIRIN. MEDICATIONS: She is on are: Plavix, Flovent, breathing treatments, Cardizem. SOCIAL HISTORY: Nonsmoker, does not use any alcohol. PHYSICAL EXAMINATION: GENERAL: She is awake and alert and oriented. VITAL SIGNS: Graphic trend shows that she is afebrile. Pressure is 152/50, pulse of 78, respirations 20, temperature 98.4. LUNGS: Clear. HEART: Regular. ABDOMEN: Soft. EXTREMITIES: Without any edema. Troponin was 0.94 initially, dropped down to 0.084 and 0.85 at 5:32. LABORATORY DATA: EKG showed sinus, nonspecific ST-T wave changes. Chest x-ray shows no pathology other than chronic interstitial changes. Comprehensive glucose 130, BUN 9, creatinine 1.12, sodium 136, potassium 4.1, chloride 97, bicarbonate 27. WBC count is 16.3, hemoglobin 11.4, hematocrit 34.5. ASSESSMENT AND PLAN: 1. The patient who presents with chest pain, slight elevation in the troponin, did come down on the repeat examination, may have possible non-Q-wave DE is a consideration. Dr. Donato has been consulted. A stress test has been performed. Awaiting the report of the stress test. 2. Chronic respiratory failure with repeat episodes of desaturation as per the patient at home. A CT of the chest will be ordered and a consultation with Dr. Marie has been obtained. For right now, we will continue breathing treatments [place], [place] PATIENT HISTORY AND PHYSICAL EXAM [facility]: [id number] UNIT #: [id number] ROOM: [facility] DOCTOR: ARDEN BIGGS MD BIRTHDATE: [birth year] and Flovent. 3. Benign hypertension, controlled. ARDEN BIGGS MD CM:HISPHYS:PATIENT HISTORY AND PHYSICAL EXAMINATION 0832 1012 ARDEN BIGGS MD 11/24/16 1012 interface
--- NOTE | ~2016-11-23 | PR ---
[place], [place] PROGRESS NOTE NAME: KAREL FLORES UNIT #: [id number] ROOM: [facility] DOCTOR: RE PLATA MD,MISHA BIRTHDATE: [birth year] DOS: 11/29/2016 PULMONARY CRITICAL CARE EVALUATION AND MANAGEMENT SUBJECTIVE: The patient was seen and examined on 11/29/2016. She has been continued on mechanical ventilation, 50% oxygen supplementation. In the last 24 hours, she has not been noted any respiratory problem or any hemodynamic instability. In the last 24 hours, she has not been noted any symptoms of further hemoptysis. The patient remains off the Plavix because of the current hemoptysis. OBJECTIVE: VITAL SIGNS: Temperature remains normal, respiratory rate of 26-23, heart rate 91-88, blood pressure 130/54-144/54. The intake recorded as 2400 mL over 1200, positive for 1200 mL. Pulse oxygen saturation on 50% oxygen 94% saturation. HEENT: Examination shows the patient remained orally intubated. Gastric tube remains in place. NECK: Supple. Head was atraumatic. CARDIOVASCULAR: S1, S2 audible. LUNGS: The lung was noted moderate decreased breath sounds without any wheezing. Occasional crackles of the lungs were noted. ABDOMEN: Soft, nontender. EXTREMITIES: Shows mild edema. LABORATORY DATA: The endotracheal aspirate culture from the 9 showed no bacterial growth. Culture of the bronchial washing was noted as normal tristan. TB Gold test for the patient that was done on 11/24/2016 was noted as negative. The chest x-ray that was done, 1 view, the patient this morning essentially noted stable. Chest x-ray findings, the patient's endotracheal tube was noted as about 5 cm above the carinal level. Some air leak was noted with that. Interstitial infiltration was noted. The patient's arterial blood gas today, pH of 7.39, pCO2 of 42, pO2 78 on 55% oxygen assist control mode. IMPRESSION: 1. The patient who has been currently noted with acute respiratory failure with interstitial lung disease superimposed acute pneumonia, Pseudomonas aeruginosa. 2. Some fluid retention noted at this time because of mechanical ventilation. 3. Hemoptysis, which is resolving. 4. Mild azotemia. 5. ____ debility was also noted. PLAN OF MANAGEMENT: Continue the patient on current mechanical ventilatory support. Change the endotracheal tube #8 site as well. Readjust the endotracheal tube as well. Usual care, other supportive therapy, plan of management. Labs monitoring tomorrow will be ordered. Continue nutrition support with ventilator bundle management. Deep venous thrombosis prophylaxis. The patient with mechanical DVT prophylaxis using SCD because of hemoptysis. Supportive therapy, plan of management and care. Usual treatment, other care. Total time pulmonary critical evaluation and management of the patient today was [place], [place] PROGRESS NOTE NAME: KAREL FLORES UNIT #: [id number] ROOM: [facility] DOCTOR: MISHA CLARK MD BIRTHDATE: [birth year] 35 minutes. MISHA GRIMALDO MD CM:PNTRANS [id number] MISHA PLATA MD 11/30/16 0115 interface
--- NOTE | ~2016-11-23 | PR ---
[place], [place] PROGRESS NOTE NAME: KAREL FLORES UNIT #: [id number] ROOM: [facility]- DOCTOR: ARDEN BIGGS MD BIRTHDATE: [birth year] DOS: SUBJECTIVE: The patient was intubated on 11/26/2016 after she was found to be quite hypoxic on the BiPAP. The patient this morning is resting comfortably, did try to wake up and tried to talk. OBJECTIVE: VITAL SIGNS: Graphic trend shows a pressure 146/61, pulse of 73, respirations 20, temperature 98.2. LUNGS: Diminished breath sounds. No wheezes heard today. HEART: Regular. ABDOMEN: Soft, nontender. EXTREMITIES: Without any edema. LABORATORY DATA: This morning shows the sputum culture with Pseudomonas aeruginosa post-bronchoscopy which is not sensitive to the ceftriaxone. Blood gas ABG 7.4, pCO2 of 40, pO2 of 71, bicarbonate 26.5, oxygen saturation 94.6. Comprehensive glucose 217, BUN 29, creatinine 1.05, sodium 139, potassium 4.4, chloride 104, bicarbonate 25. Phosphorus 2.2. WBC count is 11.0, hemoglobin 8.8, hematocrit 27.3, platelets 195. ASSESSMENT AND PLAN: 1. Acute hypoxic respiratory failure, now intubated. Dr. Marie is following. 2. Pseudomonas of the sputum. Change antibiotics. 3. Hypophosphatemia, supplementation to be given. 4. Severe interstitial lung disease in the form of pulmonary fibrosis. Overall, prognosis remains poor and guarded. 5. Benign hypertension, controlled with a negative recent stress test. ARDEN BIGGS MD CM:PNTRANS 4 0 ARDEN BIGGS MD 11/28/16840 interface
--- NOTE | ~2016-11-23 | PR ---
[place], [place] PROGRESS NOTE NAME: KAREL FLORES UNIT #: [id number] ROOM: [facility] DOCTOR: RE PLATA MD,MISHA BIRTHDATE: [birth year] DOS: 11/30/2016 PULMONARY CRITICAL CARE EVALUATION AND MANAGEMENT SUBJECTIVE: The patient was noted comfortable at this time without any acute distress. She has been sedated with intravenous Diprivan. The oxygen supplementation continues the same as 55% saturation of oxygen. She has not been noted any hemodynamic instability. Did not require any vasopressor therapy. There were no further episodes of hemoptysis noted. The patient was noted with diarrhea. The feeding has been decreased to 40 mL an hour because of diarrhea. OBJECTIVE: VITAL SIGNS: The rectal temperature noted low grade 100.4 degrees Fahrenheit, respiratory 15-17, heart rate 87-99, blood pressure 139/52-142/54. Intake for the patient was 2300 mL, output 1200 mL. Pulse oxygen saturation noted on 40% oxygen 94% saturation. HEENT: The patient currently orally intubated. Orogastric tube is in place. NECK: Supple. CARDIOVASCULAR: S1, S2 is audible. LUNGS: The patient was noted without any wheezing or crackles at this time. ABDOMEN: Soft, nontender and obese. EXTREMITIES: Shows very mild edema. LABORATORY DATA: Arterial blood gas for today, pH of 7.30, pCO2 of 46, pO2 of 128 with 55% oxygen supplementation. CBC this morning, WBC count 16.8, hemoglobin 10, hematocrit 30.4, platelet count 288,000 with 92% segmented neutrophils. CMP this morning, glucose 346, BUN 85, creatinine 1.54. Uncorrected calcium noted at 6.3. Albumin was 2.3, total protein of 5.8. The pneumocystis stain of the bronchial washing noted as negative. The chest x-ray of the patient that was done this morning showed endotracheal tip. Tip was noted about 1.5 cm above the sunday level. Interstitial infiltration. The patient was still noted with partial reduction compared with the previous chest x-ray, there were no findings of acute congestive heart failure. Chest x-rays were personally reviewed from the PACS images. IMPRESSION: 1. The patient with ____ chronic hypoxic respiratory failure. 2. Interstitial lung disease with ongoing superimposed acute pneumonia with Pseudomonas aeruginosa. 3. Respiratory acidosis was noted as well, current ongoing pulmonary disease as well. 4. Hemoptysis seem to be resolving at this time with no further hemoptysis noted in the last 3 days after bronchoscopy. 5. Mild acute kidney injury was noted with elevation of BUN and creatinine, most likely secondary to volume contraction with the current diarrhea. PLAN OF MANAGEMENT: Intervenous fluids will be given for the next 24 hours, close monitoring for the edema. Reduce the oxygen supplementation to 45% of oxygen. Continue to titrate. Assessment of the long-term acute care facility [place], [place] PROGRESS NOTE NAME: KAREL FLORES UNIT #: [id number] ROOM: [facility] DOCTOR: RE PLATA MD,MISHA BIRTHDATE: [birth year] would be ordered. DVT prophylaxis will be started with heparin subq at this time. Continue monitoring of the labs for this patient as well. Hyperglycemia continued to be managed with the sliding scale insulin coverage. The dose of Solu-Medrol will be decreased to 40 mg once a day. Continue other antibiotics. Ventilator bundle management. Other supportive therapy, plan of management and care. Total time of pulmonary critical care evaluation and management was 35 minutes. MISHA GRIMALDO MD CM:PNTRANS [id number] MISHA PLATA MD 12/01/160 interface
--- NOTE | ~2016-11-23 | CON ---
[place], [place] REPORT OF CONSULTATION NAME: KAREL FLORES REDWO[facility] LLCT #: [id number] UNIT #: [id number] ROOM: 412 DOCTOR: TWYLA WELSH MD BIRTHDATE: [birth year] DOS: 11/24/2016 I am seeing this patient on behalf of Dr. Donato. 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 She also has anxiety disorder. She has never had a heart attack, heart failure or diabetes. She has some degree of carotid disease. She has a cholecystectomy and hysterectomy in the remote past. She was in this hospital on November 10 this year with some chest discomfort and pain. She came back with lower retrosternal pain and tightness that would not let her up. This has been going on and off for the last 2 weeks. It is not aggravated by breathing and resting does not seem to make it any better. She has no swelling of the lower extremities and has not had any palpitation, dizziness or loss of consciousness, although mundane activity causes shortness of breath. HOME MEDICATIONS: Include Flovent, DuoNeb, 2 liters of oxygen per minute, alprazolam, amlodipine 10 daily, atorvastatin 20 daily, calcium carbonate with vitamin D3 daily, clopidogrel 75 mg daily, diltiazem 240 mg daily and Protonix 40 mg daily. PHYSICAL EXAMINATION: GENERAL: The patient who appears somewhat anxious and little nervous. There is no thyromegaly or finger clubbing. Her complexion is fine. She is not cyanotic or jaundiced. VITAL SIGNS: Pulse is regular at 88 beats per minute, blood pressure 145/54. NECK: JVP is normal. She has a loud right carotid bruit and also bruit on the left side. HEART: There is a grade 3/6 to 4/6 systolic murmur over the upper sternal area. A2 is easily appreciated. EXTREMITIES: She has no edema in the lower extremities. Pedal pulses are easily palpable. RESPIRATORY: Breath sounds are moderately diminished with fine crackles in the lower 2/3 of the lung reid. LABORATORY DATA: An ECG showed normal sinus rhythm and a normal pattern. Troponin I levels were normal. She had a Lexiscan Cardiolite study today, which demonstrated no ischemia. The study was read by Dr. Donato. IMPRESSION: 1. This chest pain is noncardiac and the stress test has come back normal, i.e., no ischemia. 2. She has a systolic murmur, which probably indicates some degree of aortic stenosis. Since A2 is easily audible, it is likely to be mild. 3. She has significant carotid bruits bilaterally and I think carotid duplex ultrasound should be repeated soon. [place], [place] REPORT OF CONSULTATION NAME: KAREL FLORES UNIT #: [id number] ROOM: 412 DOCTOR: ANITHA COLVIN,TWYLA BIRTHDATE: [birth year] I thank you for this consult. TWYLA WELSH MD CM:CONSTR:REPORT OF CONSULTATION 11 11/25/16 0758 interface
--- NOTE | ~2016-11-23 | PR ---
[place], [place] PROGRESS NOTE NAME: KAREL FLORES UNIT #: [id number] ROOM: [facility] DOCTOR: RAMILA FRANZ CRNA BIRTHDATE: [birth year] DOS: 11/26/2016 INTUBATION NOTE. SUBJECTIVE: The patient admitted for shortness of breath. The patient experiencing worsening respiratory failure with a PaO2 of 56.9 in spite of being on BiPAP. Upon arrival, the patient with family present, questions answered. The patient on BiPAP with a sat of 94% with quite a bit of respiratory exertion. The patient sedated with a propofol 50 mg, intubated under direct laryngoscopy with a 2 Sheppard blade. Using a 7.5 mm ET tube, intubated without difficulty with a positive end tidal CO2, positive bilateral breath sounds. Tube was secured at 23 cm at the lips. The patient did have a brief desaturation during the intubation with a return of SPO2 to 99% after intubation. The patient tolerated procedure well. RAMILA FRANZ CRNA CM:PNTRANS [phone] RAMILA FARNZ CRNA 11/30/16 0654 interface
--- NOTE | ~2016-11-23 | PR ---
[place], [place] PROGRESS NOTE NAME: KAREL FLORES [facility] #: [id number] UNIT #: [id number] ROOM: [facility] DOCTOR: RE PLATA MD,MISHA BIRTHDATE: [birth year] DOS: 11/28/2016 SUBJECTIVE: The patient has bronchoscopy done yesterday. There were no further episodes of hemoptysis noted at this time. Post-bronchoscopy, the patient remains on mechanical ventilation. Oxygen requirement has been gradually decreased, changed and reduced to 55% oxygen in the last 24 hours. The patient has been started feeding, which has been tolerated currently getting 60 mL Pulmocare per hour. She has been given intravenous antibiotic for the medical management of recurrent Pseudomonas aeruginosa and pneumonia, which has been isolated with the previous endotracheal aspirate and the sputum cultures. OBJECTIVE: VITAL SIGNS: Shows normal temperature, respiratory rate 22, heart rate 79, blood pressure 134/55-142/55. The pulse oxygen saturation was 93% saturation to 100% this morning on 55% oxygen. HEENT: The patient remained orally intubated. NECK: Supple. CARDIOVASCULAR: S1 and S2 audible. LUNGS: Scattered crackles. No wheezing. ABDOMEN: Soft, nontender. LABORATORY DATA: CMP today: BUN 29, creatinine 1.05, glucose 117. Culture of the endotracheal aspirate previously was noted normal tristan. Final culture was noted as evidence of Pseudomonas aeruginosa from the 9th of this month, light growth noted, sensitive to multiple antibiotics including fluoroquinolones, Zosyn, ceftazidime and others. Chest x-ray was done this morning, was noted with pulmonary infiltration remains the same. Endotracheal tube was noted at the appropriate level. Gram stain of the endotracheal aspirate rather bronchial washing from yesterday showed moderate white blood cells, no organism, and few epithelial cells. Culture of the patient preliminary was noted as no bacterial growths. IMPRESSION: 1. Acute hemoptysis. 2. Acute pneumonia suspect Pseudomonas aeruginosa. 3. History of chronic interstitial pulmonary fibrosis. The patient's exact etiology has not been determined. Possible consideration of sarcoidosis or chronic hypersensitivity pneumonitis. 4. Mild azotemia was noted at this time. PLAN OF TREATMENT: Continuation nutrition support, albumin noted at 22. Continue current support with NG tube feeding, head side of the bed continue to be elevated at 30 degree. Ventilator bundle management remains in progress. Gradual reduction of the oxygen to be continued based on the improvement in the respiratory status. Supportive therapy, plan of management the care. Usual treatment. Addition of treatment changes will be done based on the progression of the illness. Total time pulmonary critical evaluation and management today 38 minutes. [place], [place] PROGRESS NOTE NAME: KAREL FLORES UNIT #: [id number] ROOM: [facility] DOCTOR: MISHA CLARK MD BIRTHDATE: [birth year] MISHA GRIMALDO MD CM:THEA [id number] MISHA PLATA MD 11/29/16 1046 interface
--- NOTE | ~2016-11-23 | PR ---
[place], [place] PROGRESS NOTE [id number] UNIT #: [id number] ROOM: [facility] DOCTOR: RE PLATA MD,MISHA BIRTHDATE: [birth year] DOS: 11/27/2016 PULMONARY CRITICAL CARE EVALUATION AND MANAGEMENT SUBJECTIVE: The patient remains in the hospital. The patient noted progressive deterioration of the respiratory status. The patient was noted with difficulty of oxygenation with the BiPAP with gradual oxygen requirement. She was transferred to Intensive Care Unit. The use of the BiPAP was optimized, but the patient failed to respond to treatment, noted severe persistent hypoxia and hypoxemia. She was asked for intubation. The intubation of the patient went successfully by the anesthesia staff without difficulty yesterday. The patient currently getting assist control mode on mechanical ventilation. The oxygen supplementation was started initially 100% and decreased to 80% later on with arterial blood gases assessment and pulse oxygen saturation. She has been attempted for placement of the orogastric tube, which was not noted successful by the nursing staff. She was planned for bronchoscopy done today. Post-intubation, clotted blood, which is small to moderate was suctioned out by the respiratory therapy staff. OBJECTIVE: VITAL SIGNS: For the patient, which has been recorded showed the temperature noted as normal, respiratory rate 18-14, heart rate 74-85, blood pressure 150/62-141/69. Intake for this patient is 480, output 800 mL. The pulse oxygen saturation 80% oxygen, was noted 98-100% saturation. HEENT: The patient is orally intubated. NECK: Supple. Head was atraumatic. CARDIOVASCULAR: S1, S2 audible. LUNGS: Noted moderate decreased breath sounds, scattered expiratory crackles. There was no wheezing. ABDOMEN: Soft, nontender. EXTREMITIES: Shows chronic obesity. LABORATORY DATA: Arterial blood gas on the BiPAP, pH of 7.45, pCO2 of 35, pO2 of 56.7 yesterday. The arterial blood prior to that shows pH of 7.41, pCO2 of 42, pO2 of 35, which was venous gas. The arterial blood gas of the patient that was done post-intubation and starting the patient on mechanical ventilation, pH of 7.42, pCO2 of 40, pO2 of 141, 100% oxygen, PEEP of 7 with volume of 550 mL. The arterial blood gas at 80% oxygen. Remaining setting remains the same, as of yesterday shows pH of 7.42, pCO2 of 40.9, pO2 62.2. The endotracheal aspirate culture and sputum culture noted light growth of gram-negative bacilli for the patient from yesterday. Final identification and sensitivity patient remains pending. The chest x-ray of the patient that was done yesterday and this morning shows endotracheal tube noted at the sunday level. Interstitial infiltration noted in the lungs bilaterally, remains unchanged. There were no pleural effusions. IMPRESSION: 1. The patient has been noted current symptoms of hemoptysis, progressive acute hypoxic respiratory failure, pulmonary infiltration with possibility of gram-negative infection would be considered. Other etiology to be considered [place], [place] PROGRESS NOTE NAME: KAREL FLORES UNIT #: [id number] ROOM: [facility] DOCTOR: MISHA CLARK MD BIRTHDATE: [birth year] acute, flareup of the interstitial lung disease for this patient as well. 2. Moderate obesity as well. 3. History of chronic hypoxic respiratory failure with superimposed acute respiratory failure secondary to the above. PLAN OF TREATMENT: Continue the patient on mechanical ventilation at this time. Gradual reduction of the oxygen use based on improvement in oxygen saturation in PaO2 with arterial blood gases. Proceed with the bronchoscopy. Orogastric tube is tried to be inserted by me. Orogastric tube was inserted later on successfully without any difficulty at the bedside. The patient will be started on nutrition support. Ventilator bundle management also noted in progress. The mechanical prophylaxis for the DVT will be given because of the current bleeding. The anticoagulation would not be used. The Plavix was also discontinued temporary because of the current hemoptysis. Further treatment changes will be done based on the progression of the illness. Assessment and management of the patient has been discussed with the patient's family members in detail personally. Pulmonary critical care evaluation and management was done. Pulmonary critical care evaluation and management was 40 minutes. MISHA GRIMALDO MD CM:PNTRANS [phone] MISHA PLATA MD 11/28/16918 interface
--- NOTE | ~2016-11-23 | PR ---
[place], [place] PROGRESS NOTE NAME: KAREL FLORES UNIT #: [id number] ROOM: [facility] DOCTOR: GALILEO BAILEY MD BIRTHDATE: [birth year] DOS: 11/27/2016 SUBJECTIVE: The patient is intubated and on mechanical ventilation, and sedated with propofol infusion. OBJECTIVE: VITAL SIGNS: Blood pressure 132/70, heart rate 72 beats per minute, breathing 17 times per minute, temperature 98 degrees Fahrenheit. GENERAL APPEARANCE: Patient intubated and sedated. HEENT AND NECK: Exam within normal limits. CARDIOVASCULAR SYSTEM: Heart rate is regular in rate and rhythm. S1 and S2 normally audible. LUNGS: Clear to auscultation. ABDOMEN: Soft, nontender. No obvious organomegaly. Bowel sounds are present. EXTREMITIES: Without significant cyanosis or edema. IMPRESSION: 1. Acute exacerbation of chronic obstructive pulmonary disease and pulmonary fibrosis, being treated with corticosteroids and antibiotics. Dr. Marie, the customer support professional, is following. 2. Acute respiratory failure, being treated with intubation and mechanical ventilation. 3. Benign essential hypertension. Blood pressure is being monitored and controlled. 4. Normal cardiac stress test, performed for precordial chest pains. GALILEO BAILEY MD CM:PNTRANS [phone] GALILEO BAILEY MD 11/28/16 0002 interface
--- NOTE | ~2016-11-23 | PR ---
[place], [place] PROGRESS NOTE NAME: KAREL FLORES [facility] #: [id number] UNIT #: [id number] ROOM: [facility] DOCTOR: RE PLATA MD,MISHA BIRTHDATE: [birth year] DOS: 11/26/2016 PULMONARY FOLLOWUP NOTE SUBJECTIVE: The patient has been noted with increased requirement of the oxygen, currently noted using the oxygen supplementation and the BiPAP that has been ordered by the primary care attending. The patient stated expectoration of the sputum containing blood clots. She denies symptoms of chest pain or abdominal pain. However, the patient has been resting comfortably at this time on the bed using the BiPAP at the time of the assessment this morning at 11:00. OBJECTIVE: VITAL SIGNS: For the patient which has been recorded showed the temperature noted normal, respiratory rate of 20, heart rate of 99, blood pressure 130/50. Pulse oxygen saturation of the patient noted on 60% oxygen, BiPAP was 96%, previous 100% nonrebreather mask was 88% saturation. HEENT: Examination shows no acute change. NECK: Supple. CARDIOVASCULAR: S1, S2 audible. LUNGS: The patient was noted with scattered crackles of the lungs. There was no wheezing. ABDOMEN: Soft, nontender. EXTREMITIES: Show no edema. LABORATORY DATA: The patient's CBC today: WBC count 13.1, hemoglobin 8.9, hematocrit 26.6, platelet count was normal, 90% segmented neutrophils. BMP this morning, BUN 15, creatinine 1.06, glucose 75. Culture of the sputum for this patient was pending. The Gram stain showed moderate gram-positive cocci in pairs, chains and clusters, moderate white blood cells, few epithelial cells. IMPRESSION: 1. The patient with progressive acute respiratory failure that has been noted at this time with hemoptysis, currently getting the Plavix as well for her coronary artery disease and other issues. 2. The patient with acute on chronic severe hypoxic respiratory failure as well. 3. Interstitial pulmonary fibrosis with lymphadenopathy. The patient with diagnosis consideration of chronic hypersensitive pneumonitis or sarcoidosis. 4. Hemoptysis, patient's exact etiology remains unclear. PLAN OF TREATMENT: Monitor culture results. Continue antibiotics and corticosteroids. Obtain another chest x-ray for the patient to reassess. Coverage for the atypical organism. The patient will be started with the use of the doxycycline as 100 mg IV b.i.d. Other supportive plan and management to be continued. I will be discontinuing the Plavix at this time since the patient has been noted to have hemoptysis; continued use of Plavix will increase the hemoptysis. CODE STATUS: The patient to be addressed with the family members as well. Continue the BiPAP for the patient at this time with monitoring. The patient [place], [place] PROGRESS NOTE NAME: KAREL FLORES UNIT #: [id number] ROOM: [facility] DOCTOR: MISHA CLARK MD BIRTHDATE: [birth year] may need to be transferred to the Intensive Care Unit for close observation since the patient was noted full code previously. MISHA GRIMALDO MD CM:PNTRANS [id number] MISHA PLATA MD 11/27/16 2252 interface
[~2016-11-23 18:26] MED LIST changes: +AUGMENTIN 875-875 MG PO; +DILTIAZEM CD240 MG PO; +MEDROL DOSEPAK4 MG PO; +METOPROLOL SUCC25 M2 PO
[2016-11-23 18:32] VITALS: BP 165/60
--- NOTE | 2016-11-23 18:57 | NUR ---
REPORT RECIEVED FROM JUSTIN PALMA
[2016-11-23 19:00] LABS: BASO % 0.1 % (0.0-1.0); EOS # 0.1 10*3/uL (0.0-0.4); EOS % 0.7 % (1.0-4.0); HEMATOCRIT 34.5 % (37.0-47.0); HEMOGLOBIN 11.4 g/dl (12.0-16.0); LYMPH # 1.1 10*3/uL (1.3-4.4); LYMPH % 6.6 % (27.0-41.0); MEAN CELL VOLUME 89.8 fl (81.0-99.0); MEAN CORPUSCULAR HGB 29.7 pg (27.0-31.0); MEAN PLATELET VOLUME 9.9 fl (9.6-12.3); MONO # 0.7 10*3/uL (0.1-1.0); MONO % 4.2 % (3.0-9.0); NEUT # 14.3 10*3/uL (2.3-7.9); NEUT % 87.7 % (47.0-73.0); PLATELET COUNT AUTOMATED 182 10*3/uL (130-400); RED BLOOD COUNT 3.84 10*6/uL (4.10-5.10); RED CELL DISTRI WIDTH 14.3 % (0-14.5); WHITE BLOOD COUNT 16.3 10*3/uL (4.8-10.8)
[2016-11-23 19:22] LABS: ALBUMIN 3.1 gm/dl (3.1-4.5); CREATININE 1.12 mg/dL (0.55-1.02); POTASSIUM 4.1 mmol/L (3.5-5.1); TOTAL PROTEIN 7.3 gm/dL (6.4-8.2)
[2016-11-23 19:26] LABS: TROPONIN I 0.082 ng/ml (<0.045)
--- NOTE | 2016-11-23 19:30 | NUR ---
TROPONIN 0.082 LONG CARTER NOTIFIED
[2016-11-23 19:41] VITALS: BP 154/73
--- NOTE | 2016-11-23 19:42 | NUR ---
PATIENT RESTING IN BED IN HIGH FOWLERS POSITION DENIES ANY PAIN OR DISCOMFORT AT PRESENT TIME, NO SIGNS OF DISTRESS, PULSE OX 94% ON 4LPM
[2016-11-23 21:18] VITALS: BP 153/84
--- NOTE | 2016-11-23 21:28 | NUR ---
PATIENT RESTING IN BED IN HIGH FOWLERS POSITION STATES HAS MILD SUBSTERNAL NONRADIATING "BURNING" ONLY COMPLAINT NO OTHER SIGNS OF DISTRESS PT RESTING
[2016-11-23 21:30] VITALS: BP 159/62
--- NOTE | 2016-11-23 21:30 | NUR ---
A 70, admitted to , under the services of ARDEN Thomas MD with a diagnosis of DYSPNEA, ELEVATED TROPONIN. Chief complaint is SHORTNESS OF BREATH. Patient arrived via CART from ER. Monitor applied. Initial assessment completed. Vital signs taken and recorded. ARDEN THOMAS MD notified of admission to the unit. Orders received. See assessment for past medical history, medications and allergies. Patient and/or family oriented to unit. [facility] visitation policy reviewed. Clothing/patient valuable form completed. PROSPER VALDERRAMA
--- NOTE | 2016-11-23 22:40 | NUR ---
RESTING IN BED WITHOUT C/O'S. ALERT AND PLEASANT. 02 INTACT. HEP LOCK INTACT. NO C/O'S CHEST PAIN VOICED.
--- NOTE | 2016-11-23 23:11 | NUR ---
MED REC REVIEWED WITH PT AND UPDATED.
--- NOTE | 2016-11-23 23:21 | NUR ---
[address] ARRIOLA. NOT AVAILABLE UNTIL 0700. 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
[2016-11-24] VITALS: BP 152/50
--- NOTE | 2016-11-24 00:27 | NUR ---
DR. REILLY NOTIFIED OF CONSULT ON PATIENT AND THAT PATIENT HAS HAD 2 CRITICAL TROPONINS. NEW ORDER TO OBTAIN ECHOCARDIOGRAM IN AM. ATTEMPTED TO NOTIFY DR. BIGGS OF CRITICAL TROPONIN OF 0.094 WITH NO ANSWER ON CELL OR HOME PHONE.
--- NOTE | 2016-11-24 05:30 | NUR ---
CRITICAL TROPONIN OF 0.084 TRENDING DOWN FROM 0.094. PATIENT STATED SHE DID NOT WANT TO GET WASHED UP BECAUSE SHE WAS AWAKE ALL NIGHT. WILL CONTINUE TO MONITOR. CALL LIGHT IN REACH.
--- NOTE | 2016-11-24 06:33 | NUR ---
CRITICAL TROPONIN OF 0.085 FROM 0.084.
--- NOTE | 2016-11-24 07:56 | NUR ---
DR BIGGS COMES TO THE FLOOR AND REQUESTS THIS NURSE TO CALL DR ARRIOLA TO GIVE OK FOR STRESS TEST. DR ARRIOLA CALLED AND SAID TO DO THE STRESS TEST. DR BIGGS CALLED AND NOTIFIED.
--- NOTE | 2016-11-24 08:00 | NUR ---
Funeral Assistant in to talk to patient. Patient states lives at HOME [address] with HER '. There are 0 steps in the home. Physician: DR BIGGS [facility]: [facility] [place] Home health services: NONE AGREE TO HH THIS VISIT AND CHOOSES OV Patient's level of ADLs: MINIMAL ASSIST Patient has working utilities: YES DME: CANE/NEB/O2 HCS Follow-up physician's appointment after d/c: PREFERS TO MAKE HER OWN APPT Does patient want to access PORTAL?: Discharge plan HOME WITH HOME HEALTH. ANNMARIE TRIVEDI DISCUSSED SNF PT IS READMIT. REFUSES. AGREES TO HOME HEALTH
--- NOTE | 2016-11-24 08:00 | NUR ---
SUBCONTRACT MANAGER VS. PT OFF FLOOR FOR TESTING. FROM LAST VISIT, Facepiece Line Supervisor in to talk to patient. Patient states lives at HOME [address] with HER . There are 0 steps in the home. Physician: DR BIGGS Pharmacy: [facility] [place] Home health services: NONE Patient's level of ADLs: INDEPENDENT Patient has working utilities: YES DME: CANE/NEB/O2 FROM [facility] Follow-up physician's appointment after d/c: PREFERS TO MAKE HER OWN APPT Does patient want to access PORTAL?: Discharge plan HOME. ANNMARIE TRIVEDI
--- NOTE | 2016-11-24 08:00 | NUR ---
INFORMED COMSENT SIGNED FOR LEXISCAN WITH DR BIGGS. RESTING EKG NSR, HT RT 92 AND BP 142/54. POX 95% VIA 3LNC WITH CLEAR LUNG SOUNDS. COMPLETED ONE MINUTE OF LEXISCAN PROTOCOL RECEIVING LEXISCAN 0.4 MG OVER 10 SECONDS. DEVELOPED BREATHLESSNESS AND SHAKY THAT WAS RELIEVED IN RECOVERY. HAD A PEAK HR OF 105 AND BP 136/58. LAST RECOVERY HR 97 WITH A BP OF 122/60. AWAITING NUCLEAR IMAGING RECLINED COMFORTABLY IN THE CHAIR. CALL LAKHANI IN REACH.
--- NOTE | 2016-11-24 09:51 | NUR ---
Dr Marie on floor and notified of consult.
[2016-11-24 12:00] VITALS: BP 148/56
--- NOTE | 2016-11-24 12:49 | NUR ---
DR ARRIOLA CALLS UNIT, STRESS TEST WAS GOOD. DR BIGGS CALLED AND NOTIFIED DISCUSSED CT SCAN AND NEW ORDERS FROM DR GRIMALDO.
[2016-11-24 16:00] VITALS: BP 145/54
--- NOTE | 2016-11-24 17:00 | NUR ---
Patient resting quietly with no c/o discomfort. Respirations easy and regular. Vital signs stable. No overt distress. GENESIS BRAY R
[2016-11-24 20:00] VITALS: BP 121/53
--- NOTE | 2016-11-24 20:00 | NUR ---
RESTING IN BED WITH HOB SLIGHTLY ELEVATED. 02 INTACT AT 4LPM VIA NASAL CANNULA. CALL LIGHT WITHIN REACH.
--- NOTE | 2016-11-24 21:00 | NUR ---
MEDICATED WITH XANAX FOR C/O ANXIETY.
--- NOTE | 2016-11-24 23:30 | NUR ---
RESTING IN BED WITH EYES CLOSED; XANAX GIVEN EARLIER APPARENTLY EFFECTIVE.
[2016-11-25] VITALS: BP 135/65
[2016-11-25 08:00] VITALS: BP 140/62
[2016-11-25 12:00] VITALS: BP 145/60
[2016-11-25 16:00] VITALS: BP 150/62
--- NOTE | 2016-11-25 17:00 | NUR ---
DR BIGGS CALLED RE: PT C/O INDIGESTION. ORDERS RECEIVED. ALSO NOTIFIED THAT PT PULSE OX ON 4L MID 80'S. RESP THERAPY PLACED PT ON PURITAN MASK AT 10L. ORDERS RECEIVED FOR BIPAP.
--- NOTE | 2016-11-25 17:24 | NUR ---
PT NOT IN DESTRESS. INCREASED O2 REQUIREMENTS
[2016-11-25 20:00] VITALS: BP 141/57
--- NOTE | 2016-11-25 21:25 | NUR ---
MEDICATED WITH XANAX FOR C/O ANXIETY & PER M.D. ORDERS.
[2016-11-26] VITALS (7 sets, daily range): BP systolic 130–172; BP diastolic 50–69
--- NOTE | 2016-11-26 | NUR ---
RESTING IN BED WITH EYES CLOSED. XANAX GIVEN EARLIER APPARENTLY EFFECTIVE.
[2016-11-26 06:18] LABS: HEMATOCRIT 26.6 % (37.0-47.0); HEMOGLOBIN 8.9 g/dl (12.0-16.0); MEAN CELL VOLUME 89.6 fl (81.0-99.0); MEAN CORPUSCULAR HGB CONC 33.5 g/dl (33.0-37.0); MEAN PLATELET VOLUME 10.5 fl (9.6-12.3); PLATELET COUNT AUTOMATED 169 10*3/uL (130-400); RED BLOOD COUNT 2.97 10*6/uL (4.10-5.10); RED CELL DISTRI WIDTH 14.4 % (0-14.5); WHITE BLOOD COUNT 13.1 10*3/uL (4.8-10.8)
[2016-11-26 06:47] LABS: BUN 15 mg/dl (7-24); CHLORIDE 103 mmol/L (98-107); CREATININE 1.06 mg/dL (0.55-1.02); POTASSIUM 4.1 mmol/L (3.5-5.1); SODIUM 138 mmol/L (136-145)
[2016-11-26 06:56] LABS: OVALOCYTES FEW; PLATELET SUFFICIENCY NORMAL (NORMAL); POLYCHROMASIA SLIGHT; TOTAL CELLS COUNTED 100 #CELLS; TOXIC GRANULATION SLIGHT
--- NOTE | 2016-11-26 07:45 | NUR ---
BIPAP TITRATED TO 60% FIO2. POX 95%. PT COUGHING UP BLOODY SPUTUM.
--- NOTE | 2016-11-26 10:06 | NUR ---
MEDICATED PT PER PRN ORDER WITH XANAX FOR C/O ANXIETY.
--- NOTE | 2016-11-26 11:00 | NUR ---
PT STATES RELIEF OF ANXIETY WITH EARLIER XANAX.
--- NOTE | 2016-11-26 11:20 | NUR ---
PT WAS RESTING IN BED. SPO2 WAS 88-89 ON BIPAP OF 60%. PT WANTED TO EAT SOMETHING BECAUSE SHE DIDNT HAVE ANYTHING ALL DAY. RESP TOOK PT OFF BIPAP OFF AND PLACED PT ON 50% VENTI PT SPO2 DROPPED TO 73% THEN TO 69% PT THEN PLACED ON NON REBREATHER AT 12L/M SPO2 WAS 81%. LET PT TAKE A FEW BITES OF FOOD AND HER SPO2 DROPPED TO 63% PT THEN WAS PLACED ON BIPAP AND DID NOT RECOVER VERY WELL SO PT O2 WAS PUT ON 100% PT DID RECOVER TO 95%. TITRATED TO 65%. PT MAINTAINED SPO2 91-93%.
--- NOTE | 2016-11-26 12:42 | NUR ---
BIPAP TITRATED BACK TO 70% FOR POX 88%. DR GRIMALDO IN TO SEE PT EARLIER.
--- NOTE | 2016-11-26 12:59 | NUR ---
MED REC REVEIWED.
--- NOTE | 2016-11-26 13:39 | NUR ---
PT TRANSFERED TO [facility] AFTER CXR. PT REPORT GIVEN TO RECEIVING NURSE.
--- NOTE | 2016-11-26 13:40 | NUR ---
PATIENT ARRIVED VIA CART FROM , AFTER HAVING A TWO VIEW CXR DONE IN THE DEPARTMENT. SHE ARRIVED ON A 100% NON-REBREATHER MASK WITH FIRST DOCUMENTED PULSE OX OF 78%. SHE HAS HAD HER BIPAP REAPPLIED WITH SETTINGS OF 12/6, AND 70%FIO2. PT ALERT AND ORIENTED, ORTHOPNEIC AND TACHYPNEIC. SEE ALL APPROPRIATE INTERVENTIONS.
--- NOTE | 2016-11-26 14:18 | NUR ---
ABG'S DONE LEFT RADIAL FOLLOWING P/P. PT RESTING EASILY ON HER BIPAP AT THIS TIME. FAMILY IN TO SEE PATIENT.
[2016-11-26 14:25] LABS: ABG BASE EXCESS 2.4 mmol/L (-2.0-2.0); ABG HCO3 26.9 mmol/l (22-26); ABG O2 SATURATION 72.7 % (95-97); ARTERIAL BLOOD GAS PCO2 42.4 mmHg (35-45); ARTERIAL BLOOD GAS PH 7.416 (7.35-7.45)
[2016-11-26 14:27] LABS: ARTERIAL BLOOD GAS PO2 35.1 mmHg (80-90)
--- NOTE | 2016-11-26 14:44 | NUR ---
FIRST ABG'S APPEARED TO BE VENOUS. ANOTHER SPECIMEN OBTAINED AND SENT TO THE LAB.
[2016-11-26 14:49] LABS: ABG BASE EXCESS 1.7 mmol/L (-2.0-2.0); ABG HCO3 25.2 mmol/l (22-26); ABG O2 SATURATION 92.8 % (95-97); ARTERIAL BLOOD GAS PCO2 35.8 mmHg (35-45); ARTERIAL BLOOD GAS PH 7.459 (7.35-7.45); ARTERIAL BLOOD GAS PO2 56.9 mmHg (80-90)
--- NOTE | 2016-11-26 14:59 | NUR ---
DR GRIMALDO NOTIFIED OF ABG'S AND CXR RESULTS AND OVERVIEW OF PT'S CONDITION. DR GRIMALDO WANTS NOTIFIED AT 1800 OF PT'S CONDITION. FAMILY UPDATED.
--- NOTE | 2016-11-26 16:52 | NUR ---
PATIENT DOZING BUT SATS BARELY HOLDING 89% WITH BIPAP ON. MASK WAS REMOVED FOR 1 MINUTE WHILE THE PATIENT COUGHED UP THICK YELLOW/NELSON SPUTUM (NO SIGNS OF BLOOD) AND HER SATS DROPPED IN TO 65%
--- NOTE | 2016-11-26 17:39 | NUR ---
MEDICATED WITH NORCO FOR C/O HEADACHE - PULSE OX DROPPED TO 76% WITH OXYGEN BLOWING TO HER FACE WHILE TAKING PILLS WIHOUT DIFFICULTY SWALLOWING. LIPS TURNED PURPLE WITH OXYGEN REMOVED FROM MASK.
--- NOTE | 2016-11-26 18:30 | NUR ---
HEADACHE IS BETTER DISCUSSED WITH THE PATIENT AND HER FAMILY THE NEED TO INTUBATED AFTER SPEKING WITH DR GRIMALDO. ALL IN AGREEMWNT - REQUESTED FIELD EVIDENCE TECHNICIAN BE CALLED & [facility] CALLED AND ARE ON THEIR WAY. EXPLAINED NGT & LEON TO BE INSEERTED ALONG WITH RESTRAINTS.
--- NOTE | 2016-11-26 18:53 | NUR ---
SHERI HERE - PUBLIC HEALTH SERVICE OFFICER CALLED [facility] AND THEY ARE ON THEIR WAY.
--- NOTE | 2016-11-26 19:15 | NUR ---
PATIENT INTUBATED. TOLERATED WELL.
--- NOTE | 2016-11-26 19:45 | NUR ---
Infomed consent obtained from patient by Dr. GRIMALDO for elective intubation. Patient intubated with Other endotracheal tube orally X 1 attempts. Patient sedated with DIPRIVAN Respiratory therapy at bedside. Crash cart with emergency drugs available. Endotracheal tube inflated with 10cc's. Lungs auscultated for equality of breath sounds. Tube secured with Tube tamer at 22cm's. at level of LIP. Patient tolerated procedure WELL. Portable chest X-ray obtained and reviewed for tube placement. Patient connected to ventilator CMV mode, 550 tidal volume, 100 FIO2, 7 PEEP, and 0 pressure support RATE 12. #16 LEON INSERTED WITHOUT DIFFICUILTY FOR STRAW URINE. UA & UC SENT. DIPRIVAN DRIP AT [facility] SITE. BRUNO ARROYO
[2016-11-26 19:51] LABS: BILIRUBIN NEGATIVE (NEGATIVE); BLOOD TRACE-INTACT (NEGATIVE); CLARITY SL CLOUDY (CLEAR); COLOR YELLOW (YELLOW); GLUCOSE NEGATIVE (NEGATIVE); KETONE NEGATIVE (NEGATIVE); LEUKO ESTERASE NEGATIVE (NEGATIVE); NITRITE NEGATIVE (NEGATIVE); PH 5.5 (5.0-9.0); SPECIFIC GRAVITY 1.025 (1.005-1.030); UROBILINOGEN 0.2 E.U./dl (0.2-1.0)
--- NOTE | 2016-11-26 19:54 | NUR ---
MULTIPLE ATTEMPTS VIA ORAL & NG ROUTES WITH 2 DIFFERENT SIZE TUBES UNSUCCESSFUL. STOPPED SOME BLOODY SECRETIONS SHOWING IRRITATION.
[2016-11-26 19:57] LABS: BACTERIA 1+
[2016-11-26 19:58] LABS: WBC 0-2 wbc/hpf (0-5)
[2016-11-26 21:33] LABS: ABG BASE EXCESS 1.9 mmol/L (-2.0-2.0); ABG HCO3 26.1 mmol/l (22-26); ABG O2 SATURATION 99.1 % (95-97); ARTERIAL BLOOD GAS PCO2 40.3 mmHg (35-45); ARTERIAL BLOOD GAS PH 7.425 (7.35-7.45)
[2016-11-27] VITALS (8 sets, daily range): BP systolic 132–158; BP diastolic 56–70
--- NOTE | 2016-11-27 03:45 | NUR ---
VERSED GIVEN TO HELP CALM PATIENT. EFFECTIVE IMMEDIATELY.
[2016-11-27 05:31] LABS: ABG BASE EXCESS 2.5 mmol/L (-2.0-2.0); ABG HCO3 26.7 mmol/l (22-26); ARTERIAL BLOOD GAS PCO2 40.9 mmHg (35-45); ARTERIAL BLOOD GAS PH 7.428 (7.35-7.45); ARTERIAL BLOOD GAS PO2 62.2 mmHg (80-90)
--- NOTE | 2016-11-27 05:35 | NUR ---
VERSED GIVEN TO HELP WITH MOVING PATIENT TO ROOM 2 FOR BRONCH. EFFECTIVE IMMEDIATELY
--- NOTE | 2016-11-27 09:30 | NUR ---
EARLIER VERSED WAS EFFECTIVE AFTER PATIENT AWAKENED BY FAMILY. DISCUSSED WITH THE FAMILY THAT SHE NEEDS TO REST OR IT WILL CAUSE HER TO COUGH MORE SHE WILL REISIT THE VENTILATOR. EXPLAINED TO THEM THAT IT SEEMS LIKE BREATHING THROUGH A STRAW. VOICED UNDERSTANDING
--- NOTE | 2016-11-27 10:28 | NUR ---
DIPRIVAN INCREASED TO 30mcg AFTER SUCTIONING FOR SCANT AMOUNT OF BLOODY DRAINAGE. IV SITES X2 SECURE & PATENT. LEON DRAINING CLEAR STRAW URINE. GOOD PULSES TO ALL EXTREMITIES.
--- NOTE | 2016-11-27 10:30 | NUR ---
PHARMACY CONFIRMED BY FAMILY BUT UNABLE TO REVIEW MEDS WITH THE PATIENT SHE IS SEDATED & ON A VENTILATOR, FAMILY NOT SURE OF ALL MEDS
--- NOTE | 2016-11-27 13:30 | NUR ---
BRONCHOSCOPY COMPLETED AT BEDSIDE. VSS. PT TOLERATED WELL. SPECIMEN SENT TO LAB
--- NOTE | 2016-11-27 17:58 | NUR ---
VERSED GIVEN PRIOR TO MOVING ABOUT IN BED & SUCTIONING. DIPRIVAN DRIP AT 35MCG
--- NOTE | 2016-11-27 19:04 | NUR ---
Shift chart check completed.24 HR chart check completed.
--- NOTE | 2016-11-27 22:50 | NUR ---
ON ASSESSMENT PATIENT RESTING QUIETLY, ADEQUATELY SEDATED ON DIPRIVAN AT 35MCG/KG/MIN. LEON PATENT SMALL AMOUNT YELLOW URINE. TUBE FEEDING INFUSING WITHOUT RESIDUUAL. SHAYY'S/SCD'S IN PLACE. ABDOMEN SOFT. NO SIGNS OF DISCOMFORT. SEE ALL APPROPRIATE INTERVENTIONS.
[2016-11-28] VITALS (12 sets, daily range): BP systolic 128–148; BP diastolic 44–61
[2016-11-28 04:51] LABS: HEMATOCRIT 27.3 % (37.0-47.0); HEMOGLOBIN 8.8 g/dl (12.0-16.0); MEAN CELL VOLUME 90.7 fl (81.0-99.0); MEAN CORPUSCULAR HGB 29.2 pg (27.0-31.0); MEAN CORPUSCULAR HGB CONC 32.2 g/dl (33.0-37.0); MEAN PLATELET VOLUME 10.5 fl (9.6-12.3); PLATELET COUNT AUTOMATED 195 10*3/uL (130-400); RED BLOOD COUNT 3.01 10*6/uL (4.10-5.10); RED CELL DISTRI WIDTH 14.6 % (0-14.5)
[2016-11-28 05:09] LABS: ALBUMIN 2.6 gm/dl (3.1-4.5); ALKALINE PHOSPHATASE 73 U/L (45-117); CHLORIDE 104 mmol/L (98-107); CREATININE 1.05 mg/dL (0.55-1.02); MAGNESIUM 2.5 mg/dL (1.5-2.1); PHOSPHOROUS 2.2 mg/dL (2.5-4.9); POTASSIUM 4.4 mmol/L (3.5-5.1); SGOT/AST 24 IU/L (3-35); SGPT/ALT 49 U/L (12-78); SODIUM 139 mmol/L (136-145); TOTAL PROTEIN 6.5 gm/dL (6.4-8.2)
[2016-11-28 05:16] LABS: BUN 29 mg/dl (7-24)
[2016-11-28 05:17] LABS: PLATELET SUFFICIENCY NORMAL (NORMAL); TOTAL CELLS COUNTED 100 #CELLS
[2016-11-28 05:18] LABS: OVALOCYTES FEW; POLYCHROMASIA SLIGHT
[2016-11-28 05:42] LABS: ABG HCO3 27.1 mmol/l (22-26); ABG O2 SATURATION 80.7 % (95-97); ARTERIAL BLOOD GAS PCO2 41.3 mmHg (35-45); ARTERIAL BLOOD GAS PH 7.432 (7.35-7.45); ARTERIAL BLOOD GAS PO2 43.8 mmHg (80-90)
--- NOTE | 2016-11-28 06:06 | NUR ---
ABG'S REPEATED RT BRACHIAL,USING ULTRASOUND FOR GUIDANCE, AND FOLLOWING P/P. PT TOLERATED WELL.
--- NOTE | 2016-11-28 06:11 | NUR ---
TUBE FEEDING HAS SLOWLY BEEN TITRATED THIS SHIFT TO 60ML/HR, NO RESIDUAL. SEE ALL APPROPRIATE INTERVENTIONS.
[2016-11-28 06:12] LABS: ABG BASE EXCESS 2.4 mmol/L (-2.0-2.0); ABG HCO3 26.5 mmol/l (22-26); ABG O2 SATURATION 94.6 % (95-97); ARTERIAL BLOOD GAS PCO2 40.9 mmHg (35-45); ARTERIAL BLOOD GAS PH 7.426 (7.35-7.45)
--- NOTE | 2016-11-28 08:09 | NUR ---
FIO2 TITRATED TO 55% R/T LOW POX.
[2016-11-28 08:24] LABS: PREALBUMIN 22 mg/dl (20-40)
--- NOTE | 2016-11-28 08:40 | NUR ---
DR GRIMALDO IN TO SEE PT.
--- NOTE | 2016-11-28 09:45 | NUR ---
MEDICATED PT PER PRN ORDER WITH XANAX FOR PT'S C/O ANXIETY.
--- NOTE | 2016-11-28 10:45 | NUR ---
PT RESTING BETTER. EARLIER XANAX EFFECTIVE.
--- NOTE | 2016-11-28 10:47 | NUR ---
DR BIGGS IN TO SEE PT. NEW ORDERS RECEIVED.
--- NOTE | 2016-11-28 12:33 | NUR ---
SANDRAKAREL G [id number] Please refer to the physician's history and physical for past medical history, comorbid conditions, and allergies. Diagnosis: DYSPNEA ELEVATED TROPONIN Sincere Score: 13,MODERATE RISK WOUND DESCRIPTIONS: Location of the wound: bridge of nose Type of wound: medical photographer related pressure injury stage 2 Thickness: Partial Size: 0.6cm x 1.0cm x 0.1cm Tunneling: none Undermining: none Sinus Tract: none Presence of Exudate: none Amount: None Color: Red Odor: None Periwound Skin Appearance: Normal Wound edges: approximated Pain (associated with wound): none at time of assessment How does patient state this happened? nurse caring for patient stated it developed from the bipap mask Surface the patient is resting on: XPRT SKIN PREVENTION RECOMMENDATION: 1. Pressure redistribution support surface as appropriate 2. Elevate heels 3. Remove boots/TEDS every shift and reapply 4. Head of bed 30 degrees as tolerated 5. Assess nutrition and hydration 6. Manage moisture 7. Avoid the use of containment devices while in bed 8. Use absorptive products on surfaces limit layers of linens on bed 9. Turn and reposition every 1-2 hours in bed and every 1 hour in chair as tolerated 10. Weight shifts every 15 minutes while up in chair 11. Offloading with pillows or device to keep heels elevated off bed 12. Monitor skin at least every shift 13. Inspect under medical devices twice a day WOUND TREATMENT RECOMMENDATIONS: Consult Dr. Carver due to facility acquried pressure. Cleanse area with NSS and apply therahoney and cover with bandaid.
--- NOTE | 2016-11-28 12:37 | NUR ---
Spoke with Dr. Pearson and she stated she will look at the patient tomorrow no new orders received at this time.
--- NOTE | 2016-11-28 12:45 | NUR ---
VERSED GIVEN TO PT FOR PT'S ANXIETY.
--- NOTE | 2016-11-28 13:10 | NUR ---
PT RESTING EARLIER VERSED EFFECTIVE.
[2016-11-28 15:06] LABS: MITOGEN VALUE 1.49 IU/mL (.); TB Ag MINUS NIL VALUE <0.00 IU/mL (.); TB Ag VALUE 0.14 IU/mL (.); TB GOLD Negative (Negative)
--- NOTE | 2016-11-28 17:00 | NUR ---
MEDICATED PT PER PRN ORDER WITH VERSED AND XANAX PER PRN ORDER FOR PT'S ANXIETY.
--- NOTE | 2016-11-28 17:34 | NUR ---
PT RESTING. EARLIER PRN MEDS EFFECTIVE. AIR LEAKING AROUND ENDOTUBE CUFF. PT'S O2 SATS ARE 90'S AND PT IS GEETING HER TIDAL VOLUMES. NOTIFIED RESP. THERAPY NOTIFIED AND THEY DID COME UP TO EVALUATE THE PT. MARLA, RESP. THEARPIST, STATED LONG PT IS GETTING HER VOLUMES AND HER SATURATION IS HOLDING TO JUST WATCH HER IF LEAK GETS WORSE TO NOTIFY HIM.
--- NOTE | 2016-11-28 18:54 | NUR ---
IV DIPRIVAN TITRATED UP TO 45 MICS FOR PT'S RESTLESSNESS.
--- NOTE | 2016-11-28 22:13 | NUR ---
24 HR chart check completed.
[2016-11-29] VITALS (12 sets, daily range): BP systolic 125–144; BP diastolic 46–58
[2016-11-29 05:46] LABS: ABG BASE EXCESS 0.5 mmol/L (-2.0-2.0); ABG O2 SATURATION 95.5 % (95-97); ARTERIAL BLOOD GAS PCO2 42.1 mmHg (35-45); ARTERIAL BLOOD GAS PH 7.391 (7.35-7.45); ARTERIAL BLOOD GAS PO2 78.1 mmHg (80-90)
--- NOTE | 2016-11-29 09:00 | NUR ---
DISCUSSED HOME MEDS WITH PT.
--- NOTE | 2016-11-29 11:32 | NUR ---
MEDICATED PT PER PRN ORDER WITH XANAX FOR PT'S ANXIETY.
--- NOTE | 2016-11-29 11:50 | NUR ---
PT RESTING. EARLIER XANAX EFFECTIVE.
--- NOTE | 2016-11-29 12:37 | NUR ---
ANESTHESIOLOGY HERE - ETT SWITCHED OUT FROM A 7.5 TO AN 8 WITHOUT DIFFICULTY. PATIENT GIVEN 5ML DIPRIVAN PER REQUEST OF THE ANESTHESIOLOGIST PRIOR TO THE CHANGE. FAILY IN THE WAITING ROOM
--- NOTE | 2016-11-29 13:00 | NUR ---
DISCUSSED HOME MEDS WITH FAMILY
[2016-11-29 16:09] LABS: ACID FAST SMEAR Negative (.); ACID FAST SPEC PROCESSING Concentration (.)
--- NOTE | 2016-11-29 20:28 | NUR ---
PT. RESTING IN BED ADEQUATELY SEDATED WITH DIPROVAN. LUNGS DIMINISHED WITH SCATTERED RHONCHI BILAT, PULSE OX 98% ON 55% FIO2. ABDOMEN SOFT, NONDSITENDED AND NORMO. UPPER EXTREMITY EDEMA OF ARMS AND HANDS, ELEV ON PILLOW. ABDOMEN SOFTLY DISTENDED AND NORMO. LEON CATHETER DRAINING A CLEAR YELLOW URINE. TEDS AND SCDS BILAT. ORAL MOUTH CARE GIVEN AND PT SUCTIONED VIA ENDO AND ORALLY FOR SMALL AMT OF SECRETIONS. TUBE FEEDING OFF DUE TO 30CC'S RESIDUAL AND CONTINUOUS LARGE AMTS OF LIQUID BROWN DIARRHEA. WILL CONTINUE TO MONITOR. SOFT WRIST RESTRAINTS BILAT TO PREVENT ACCIDENTAL SELF EXTUBATION. GISELA MCLEAN RN
--- NOTE | 2016-11-29 20:51 | NUR ---
PT. GIVEN BED BATH AND LINENS CHANGED PRIOR TO SHIFT. GISELA MCLEAN RN
[2016-11-30] VITALS (9 sets, daily range): BP systolic 119–143; BP diastolic 45–59
[2016-11-30 05:02] LABS: HEMATOCRIT 30.4 % (37.0-47.0); MEAN CELL VOLUME 91.6 fl (81.0-99.0); MEAN CORPUSCULAR HGB 30.1 pg (27.0-31.0); MEAN CORPUSCULAR HGB CONC 32.9 g/dl (33.0-37.0); MEAN PLATELET VOLUME 10.9 fl (9.6-12.3); NUCLEATED RED BLOOD CELL 0.2 % (0.0-0.0); PLATELET COUNT AUTOMATED 288 10*3/uL (130-400); RED BLOOD COUNT 3.32 10*6/uL (4.10-5.10); RED CELL DISTRI WIDTH 14.5 % (0-14.5); WHITE BLOOD COUNT 16.8 10*3/uL (4.8-10.8)
[2016-11-30 05:25] LABS: ABG BASE EXCESS -3.2 mmol/L (-2.0-2.0); ABG HCO3 22.5 mmol/l (22-26); ABG O2 SATURATION 98.5 % (95-97); ARTERIAL BLOOD GAS PCO2 46.5 mmHg (35-45); ARTERIAL BLOOD GAS PH 7.306 (7.35-7.45)
[2016-11-30 05:32] LABS: OVALOCYTES FEW; PLATELET SUFFICIENCY NORMAL (NORMAL); TOTAL CELLS COUNTED 100 #CELLS
[2016-11-30 06:27] LABS: ALBUMIN 2.3 gm/dl (3.1-4.5); CREATININE 1.54 mg/dL (0.55-1.02); POTASSIUM 5.1 mmol/L (3.5-5.1); TOTAL PROTEIN 5.8 gm/dL (6.4-8.2)
--- NOTE | 2016-11-30 13:14 | NUR ---
Received order from Dr. Marie for [facility], also stated he had family in agreement. In to see patient, daughter Shraddha Rosas at bedside. Discussed [facility] and she stated she and her family are all in agreement and aware it is located in [facility]. Contacted Jojo @ [facility], faxed referral. Waiting on acceptance.
--- NOTE | 2016-11-30 14:55 | NUR ---
Patient is being discharged to [facility], transportation scheduled for 7PM with [facility]. hospital, nursing and family notified.
--- NOTE | 2016-11-30 17:49 | NUR ---
[facility]. REPORT CALLED TO LOUIE.
== END 2016-11-30 17:55 | DRG 208 ==
LOC: ED 18:26 → ICCU 20:17 → 4E 20:17 → EDHOLD 20:17 → 4E 21:04 → ICCU 11-26 13:14
PROVIDERS: Internal Medicine Critical Care Medicine; Physician Assistant; ADMIT Internal Medicine
PROC: 3E073KZ Introduction of Other Diagnostic Substance into Coronary Artery, Percutaneous Approach (ICD-10-PCS; principal; 2016-11-23)
PROC: 4A02XM4 Measurement of Cardiac Total Activity, External Approach (ICD-10-PCS; principal; 2016-11-23)
PROC: 5A09357 Assistance with Respiratory Ventilation, Less than 24 Consecutive Hours, Continuous Positive Airway Pressure (ICD-10-PCS; 2016-11-24)
PROC: 0BH17EZ Insertion of Endotracheal Airway into Trachea, Via Natural or Artificial Opening (ICD-10-PCS; 2016-11-26)
PROC: 5A1945Z Respiratory Ventilation, 24-96 Consecutive Hours (ICD-10-PCS; 2016-11-26)
PROC: 0BCB8ZZ Extirpation of Matter from Left Lower Lobe Bronchus, Via Natural or Artificial Opening Endoscopic (ICD-10-PCS; 2016-11-27)
PROC: 0BC68ZZ Extirpation of Matter from Right Lower Lobe Bronchus, Via Natural or Artificial Opening Endoscopic (ICD-10-PCS; 2016-11-27)
PROC: 0BC78ZZ Extirpation of Matter from Left Main Bronchus, Via Natural or Artificial Opening Endoscopic (ICD-10-PCS; 2016-11-27)
PROC: 0BC88ZZ Extirpation of Matter from Left Upper Lobe Bronchus, Via Natural or Artificial Opening Endoscopic (ICD-10-PCS; 2016-11-27)
PROC: 0BC18ZZ Extirpation of Matter from Trachea, Via Natural or Artificial Opening Endoscopic (ICD-10-PCS; 2016-11-27)
PROC: 0BC98ZZ Extirpation of Matter from Lingula Bronchus, Via Natural or Artificial Opening Endoscopic (ICD-10-PCS; 2016-11-27)
PROC: 0BC48ZZ Extirpation of Matter from Right Upper Lobe Bronchus, Via Natural or Artificial Opening Endoscopic (ICD-10-PCS; 2016-11-27)
PROC: 0BC58ZZ Extirpation of Matter from Right Middle Lobe Bronchus, Via Natural or Artificial Opening Endoscopic (ICD-10-PCS; 2016-11-27)
PROC: 0BC38ZZ Extirpation of Matter from Right Main Bronchus, Via Natural or Artificial Opening Endoscopic (ICD-10-PCS; 2016-11-27)
DX: J96.21 Acute and chronic respiratory failure with hypoxia (principal); J15.1 Pneumonia due to Pseudomonas; N17.9 Acute kidney failure, unspecified; J44.0 Chronic obstructive pulmonary disease with (acute) lower respiratory infection; T17.590A Other foreign object in bronchus causing asphyxiation, initial encounter; J84.10 Pulmonary fibrosis, unspecified; Z99.81 Dependence on supplemental oxygen; J44.1 Chronic obstructive pulmonary disease with (acute) exacerbation; I10 Essential (primary) hypertension; F41.1 Generalized anxiety disorder; E83.39 Other disorders of phosphorus metabolism; R73.9 Hyperglycemia, unspecified; I25.10 Atherosclerotic heart disease of native coronary artery without angina pectoris; R59.1 Generalized enlarged lymph nodes; E66.8 Other obesity; Z88.6 Allergy status to analgesic agent; Z79.899 Other long term (current) drug therapy; Z90.49 Acquired absence of other specified parts of digestive tract; Z88.8 Allergy status to other drugs, medicaments and biological substances; Z90.710 Acquired absence of both cervix and uterus; Z86.73 Personal history of transient ischemic attack (TIA), and cerebral infarction without residual deficits; Z68.28 Body mass index [BMI] 28.0-28.9, adult; I65.23 Occlusion and stenosis of bilateral carotid arteries

== ENCOUNTER 2017-01-23 10:03 | Inpatient (IN) | payer MEDICARE ==
[~2017-01-23] VITALS: Ht 154.7 cm; Wt 63.1 kg
--- NOTE | ~2017-01-23 | DS ---
[place], [place] DISCHARGE SUMMARY NAME: KAREL FLORES [facility] #: [id number] UNIT #: [id number] ROOM: 528 DOCTOR: ARDEN BIGGS MD BIRTHDATE: [birth year] DOS: 01/26/2017 DIAGNOSES: 1. Bilateral pneumonia with consolidation, most likely Gram-negative cultures, still pending. 2. Acute respiratory failure improvement. 3. Mediastinal lymphadenopathy, possible reactive. 4. Adult failure to thrive. 5. PT, OT consultation. The patient to receive antibiotics for close to 10 days, should be able to be discharged before Thanksgiving. 6. Generalized anxiety disorder. 7. Benign hypertension. 8. History of cerebrovascular accident. DISCHARGE MEDICATIONS: Doxycycline 100 mg twice a day, DuoNeb q. 4, Plavix 75 daily, atorvastatin 20 daily, diltiazem q. 6, Xanax 0.25 t.i.d. p.r.n., calcium 500 one tablet daily, meropenem 1 g IV q. 8, Lasix 20 mg daily, Breo Ellipta 100 mcg 1 inhalation daily, Flonase nasal sprays p.r.n., bisacodyl 10 mg p.r.n. for constipation, milk of mag 400 mg daily p.r.n., omeprazole 20 b.i.d., prednisone 20 daily for 5 days, 10 daily for 5 days and then 5 mg daily without a stop date, alendronate 70 once weekly, oxygen, titrate pulse ox more than 92, PICC line care, PT consult. HOSPITAL COURSE: The patient is 71 years old, very well known to us, comes in with complaints of acute onset of shortness of breath, acute hypoxic respiratory failure. She was seen in the Emergency Room, was diagnosed with possible pneumonia and was admitted. A CT of the chest was done, which showed bilateral pneumonia with consolidation and mediastinal and hilar lymphadenopathy, possible reactive. The patient was placed on multiple antibiotics. Both sputum and blood cultures were drawn. Blood cultures are negative. Sputum culture shows gram-negative bacilli, do not have the identification yet. Dr. Marie did see the patient and also advised continuation of IV steroids. The patient is stable and improved. PT, OT has been consulted. She is saturating in the high 90s on 3 liters of oxygen and is participating in physical therapy. The plan is to discharge to [facility] after PICC line is placed. Please do a CBC and a basic on Monday and Dr. Pryor and Dr. Marie to follow. [place], [place] DISCHARGE SUMMARY NAME: KAREL FLORES UNIT #: [id number] ROOM: 528 DOCTOR: ARDEN BIGGS MD BIRTHDATE: [birth year] ARDEN BIGGS MD CM:DISCHARG [id number] ARDEN BIGGS MD 01/26/17 1243 interface
--- NOTE | ~2017-01-23 | WRIGHTHP ---
[place], [place] PATIENT HISTORY AND PHYSICAL EXAM NAME: KAREL FLORES [facility] #: [id number] UNIT #: [id number] ROOM: 528 DOCTOR: ARDEN BIGGS MD BIRTHDATE: [birth year] DOS: 01/23/2017 HISTORY OF PRESENT ILLNESS: This patient is 71-year-old. The patient has an extensive past medical history. She was admitted in November here with acute respiratory failure, was intubated and transferred to [facility]. She was there for about a month, transferred to [facility] where she has been getting physical therapy for close to a month. She says that for the last 1 or 2 weeks, she has had increasing cough and shortness of breath. A sputum culture was done, which came back negative, but because of continued worsening of her condition, she was brought to the Emergency Room. Her saturations were pretty low by the time she arrived. She was 52% upon arrival, was placed on Ventimask with improvement of pulse ox to about 91%. She denies having any fever, any chills, any chest pains or palpitations. She does not want to be intubated if she goes into respiratory failure. She does not have any fever or chills. Cough is productive of scant amounts of sputum. She is able to communicate very well and hold conversation without stopping in the middle. She does not have any chest pains or palpitations, does not have any leg edema. PAST MEDICAL HISTORY: Significant for: 1. Pulmonary fibrosis. 2. Acute respiratory failure, with vent dependency recently. 3. Recent acute kidney injury. 4. Generalized anxiety disorder. 5. Benign hypertension. 6. History of CVA. MEDICATIONS: Breo Ellipta 1 inhalation daily, DuoNeb t.i.d., NovoLog 10 mL, sliding scale, Flonase, Fosamax, Xanax 0.25 q. 8 hours., amiloride 5 mg b.i.d., atorvastatin 20 daily, Plavix 75 daily, diltiazem 60 q 6 hours, omeprazole 20 b.i.d. SOCIAL HISTORY: Nonsmoker, does not use any alcohol. She is currently staying at [facility] for therapy. PHYSICAL EXAMINATION: VITAL SIGNS: Blood pressure is 128/48, pulse of 84, respirations 20, temperature 97.4. LUNGS: Diminished breath sounds, scattered wheezes and rhonchi heard this morning. HEART: Regular. ABDOMEN: Obese, soft, nontender. EXTREMITIES: Without any edema. LABORATORY DATA: Glucose 155, BUN 11, creatinine 1.13, sodium 132, potassium 4.4. ProBNP 915. WBC count is 17.4, hemoglobin 10.8. Chest x-ray showed consolidation with pneumonia. CTA of the chest shows no evidence of PE. It confirms the diagnosis of bilateral pneumonia with mediastinal and bilateral hilar adenopathy, most likely reactive. ASSESSMENT AND PLAN: [place], [place] PATIENT HISTORY AND PHYSICAL EXAM NAME: KAREL FLORES UNIT #: [id number] ROOM: 528 DOCTOR: ARDEN BIGGS MD BIRTHDATE: [birth year] 1. Acute respiratory failure. Oxygenation has improved from when she got admitted, but still requiring high flow O2. 2. Bilateral pneumonia with consolidation, possible gram-negative. Cultures have been sent. The patient has been placed on multiple antibiotics. 3. Chronic kidney disease with history of an acute tubular necrosis. We will continue avoiding nephrotoxic medications. 4. Generalized anxiety disorder, controlled. 5. Adult failure to thrive. The plan is to discharge her to rehab when she is better. 6. Type 2 diabetes mellitus, non-insulin dependent. Blood sugars are being checked, coverage is started. ARDEN BIGGS MD CM:HISPHYS:PATIENT HISTORY AND PHYSICAL EXAMINATION 8 ARDEN BIGGS MD 01/24/17916 interface
--- NOTE | ~2017-01-23 | PR ---
[place], [place] PROGRESS NOTE NAME: KAREL FLORES [facility] #: [id number] UNIT #: [id number] ROOM: 528 DOCTOR: RE PLATA MD,MISHA BIRTHDATE: [birth year] DOS: 01/26/2017 SUBJECTIVE: The patient was independently seen and examined with [id number] encounter. History was confirmed. Physical examination was also confirmed for the patient personally. Assessment and management for this patient was made for today's visit by myself. The note done by the medical reception specialist, was approved. The patient has been showing progressive improvement and resolution of the acute symptom responding to treatment. Sputum culture showing gram-negative rods. The patient responded to the treatment very well, use of the meropenem with suspected diagnosis of recurrence of the Pseudomonas aeruginosa pneumonia. She remains on oxygen supplementation via nasal cannula high flow 6 liters. Noted comfortable. PLAN OF TREATMENT: She could be discharged to the nursing facility for continuation of intravenous antibiotic for the medical management of acute pneumonia superimposed on chronic pulmonary fibrosis. The note done by the medical reception specialist, was approved. This progress note is to be attached to that of Dr. Grimaldo's progress note on 01/26/2017. SUBJECTIVE: The patient is currently not in any acute distress. She was evaluated and she states that she continues to improve in terms of respiratory symptoms. She denies any chest pain, worsening cough or fevers. Denies any diarrhea, abdominal pain or any other symptoms. PHYSICAL EXAMINATION: VITAL SIGNS: Most recently were temperature of 97.5, pulse rate 91, respiratory rate 20, blood pressure 146/50 and bedside pulse oximetry 91% on 5 liters nasal cannula. GENERAL: No acute distress. Awake, alert, oriented. The patient appears weak, but is able to maneuver somewhat better than yesterday. PULMONARY: scattered wheezes, somewhat diminished breath sounds bilaterally, but improved breath sounds overall from yesterday. CARDIOVASCULAR: S1, S2 are heard. No tachycardia ABDOMEN: Soft, nontender. EXTREMITIES: No erythema or edema. IMPRESSION: 1. Severe progressive hypoxic respiratory failure with acute process exacerbating it. 2. Possible bacterial infection, worsening of pulmonary fibrosis. Continue with the antibiotics and steroids as the patient is planned to go to the [facility] facility for rehab at the discretion of Dr. Pearson and please see Dr. Grimaldo's note for more details. [place], [place] PROGRESS NOTE NAME: KAREL FLORES UNIT #: [id number] ROOM: 528 DOCTOR: MISHA CLARK MD BIRTHDATE: [birth year] MISHA GRIMALDO MD CM:PNPOLI [id number] MISHA PLATA MD 01/27/17 0816 interface
--- NOTE | ~2017-01-23 | PR ---
[place], [place] PROGRESS NOTE NAME: KAREL FLORES UNIT #: [id number] ROOM: 528 DOCTOR: CHULA JOHNSON DO BIRTHDATE: [birth year] DOS: 01/25/2017 SUBJECTIVE: The patient is currently noted not to be in acute distress. She is awake, alert, and oriented. She denies any worsening in her symptoms. Continues to have cough and she is denying any chest pain or vomiting or abdominal pain or diarrhea. PHYSICAL EXAMINATION: VITAL SIGNS: Temperature 98.2, pulse 95, respiratory rate 20, blood pressure 130/76, bedside pulse oximetry 94% on 6 liters nasal cannula. HEENT: No new changes. No erythema or drainage. NECK: Supple. CARDIOVASCULAR: S1, S2 are heard. No tachycardia. PULMONARY: Diffuse wheezes with some crackles in the lung bases. ABDOMEN: Soft, nontender. EXTREMITIES: No edema or erythema. LABORATORY DATA: Sputum cultures are still pending. Sputum Gram stain is pending as well. IMPRESSION: Severe progressive hypoxic respiratory failure with acute process exacerbating it. Bacterial infection or worsening of the pulmonary fibrosis ____ possible differential diagnosis. She does have lymphadenopathy which ____ sarcoidosis and possible malignancy as part of a potential differential ____. PLAN OF MANAGEMENT: We will continue the current broad-spectrum antibiotics. The patient is currently on meropenem and Solu-Medrol. We will reevaluate tomorrow. Current plans for patient to go to the skilled nursing on Monday the . Please attach this note to Dr. Grimaldo's note and see that for more details on impression and plan of care. CHULA JOHNSON DO [place], [place] PROGRESS NOTE NAME: KAREL FLORES UNIT #: [id number] ROOM: 528 DOCTOR: CHULA JOHNSON DO BIRTHDATE: [birth year] MISHA GRIMALDO MD CM:THEA [id number] CHULA JOHNSON DO 01/26/17 0241 interface
--- NOTE | ~2017-01-23 | PR ---
[place], [place] PROGRESS NOTE NAME: KAREL FLORES UNIT #: [id number] ROOM: 528 DOCTOR: MISHA CLARK MD BIRTHDATE: [birth year] DOS: 01/25/2017 ADDENDUM The patient was seen and examined independently, [id number] encounter. Physical examination performed, history was confirmed, available labs were reviewed. The note done by the medical lab assistant was approved. The patient has been noted with significant reduction of the oxygen requirement. The patient in the ____ started on intravenous antibiotics with meropenem and continued doxycycline as well. She has been continued on intravenous steroids. This morning, she was noted using oxygen supplementation at 6 liters nasal cannula. She has not been noted symptoms of chest pain or hemoptysis. Cough has been noted to be productive only at time with only some minimal sputum expectoration. OBJECTIVE: VITAL SIGNS: Normal temperature, respiratory rate 20, heart rate 95, blood pressure 130/76. Intake is 920, the output was 300 mL. Pulse oxygen saturation on 6 liters is 94% saturation. With the BiPAP, saturation was recorded as 100% saturation. HEENT: No new change. NECK: Supple. CARDIOVASCULAR: S1, S2 audible. LUNGS: Inspiratory crackles, which is chronic. There was no wheezing. ABDOMEN: Soft, nontender. EXTREMITIES: No edema. LABORATORY DATA: The patient's arterial blood gas yesterday 100% nonrebreather mask, pH of 7.37, pCO2 of 38, pO2 of 91.7. IMPRESSION: 1. The patient with bilateral diffuse infiltration. The patient with possibly superimposed acute pneumonia, gram-negative infection strongly suspected, responding to treatment with meropenem. 2. The patient with acute on chronic severe hypoxic respiratory failure. 3. Pulmonary fibrosis with acute flare cannot be excluded. 4. Lymphadenopathy was noted in the mediastinum and hilar area at this time, various differential remains in consideration, but the patient was not noted well enough for further workup. PLAN OF TREATMENT: Continuation of the BiPAP, oxygen supplementation, bronchodilators and current supplementation of the oxygen. Monitor respiratory status closely. [place], [place] PROGRESS NOTE NAME: KAREL FLORES UNIT #: [id number] ROOM: 528 DOCTOR: MISHA CLARK MD BIRTHDATE: [birth year] MISHA GRIMALDO MD CM:PNTRANS [id number] MISHA PLATA MD 01/25/17 1133 interface
--- NOTE | ~2017-01-23 | PR ---
[place], [place] PROGRESS NOTE [id number] UN[facility] #: [id number] ROOM: 528 DOCTOR: ARDEN BIGGS MD BIRTHDATE: [birth year] DOS: SUBJECTIVE: The patient looks much better, feels very well this morning. Her cough and shortness of breath have subsided. The oxygen requirement has also subsided. OBJECTIVE: VITAL SIGNS: Blood pressure is 151/53, pulse of 80, respirations 17, temperature 98.1. LUNGS: Diminished breath sounds. A few fine wheezes heard, overall much improved since yesterday. HEART: Regular. ABDOMEN: Obese, soft. EXTREMITIES: Without any edema. LABORATORY DATA: Blood gas yesterday showed pH of 7.3, pCO2 of 38, pO2 of 91.7. MRSA of the nares was negative. ASSESSMENT AND PLAN: 1. Bilateral pneumonia with consolidation, possible gram-negative, on IV antibiotics. Definite clinical improvement. A repeat chest x-ray [address] 2. Mediastinal lymphadenopathy, possibly reactive. Again, we will follow with the repeat CT scan in a few days. 3. Adult failure to thrive. PT/OT will be consulted and possible placement back to [facility]. ARDEN BIGGS MD CM:PNTRANS [id number] ARDEN BIGGS MD 01/25/17 1008 interface
--- NOTE | ~2017-01-23 | EKG ---
[place], [place] ELECTROCARDIOGRAM REPORT NAME: KAREL FLORES UNIT #: [id number] ROOM: 528 DOCTOR: RE PLATA MD,MISHA BIRTHDATE: [birth year] DOS: 01/23/2017 ELECTROCARDIOGRAM REPORT TIME: 10:24 a.m. Normal sinus rhythm was noted. Heart rate 95 beats per minute. Mild elevation of the T-wave for the patient noted in lead V2 and V3. Poor R-wave progression noted in the chest leads, possibility of ischemia to be considered. Left atrial enlargement was noted. MISHA GRIMALDO MD CM:EKGRPT:ELECTROCARDIOGRAM REPORT [id number] MISHA PLATA MD
--- NOTE | ~2017-01-23 | PR ---
[place], [place] PROGRESS NOTE [id number] UN[facility] #: [id number] ROOM: 528 DOCTOR: ARDEN BIGGS MD BIRTHDATE: [birth year] DOS: SUBJECTIVE: The patient is doing fine without any complaints, sitting up in her chair. OBJECTIVE: VITAL SIGNS: Graphic trend shows a pressure of 142/52, pulse of 82, respirations 20, temperature 98.0. LUNGS: Clear. HEART: Regular. ABDOMEN: Obese, soft, nontender. EXTREMITIES: Without any edema. LABORATORY DATA: Sputum culture shows light gram negative tristan, no identification available. Blood cultures negative. ASSESSMENT AND PLAN: 1. Bilateral pneumonia, possible gram negative, again cultures are pending. 2. Acute respiratory failure. The patient has definitely improved. The plan is to discharge her to [facility] today. ARDEN BIGGS MD CM:PNTRANS [phone] ARDEN BIGGS MD 01/27/17 0228 interface
--- NOTE | ~2017-01-23 | CON ---
[place], [place] REPORT OF CONSULTATION NAME: KAREL FLORES [facility] #: [id number] UNIT #: [id number] ROOM: 528 DOCTOR: RE PLATA MD,MISHA BIRTHDATE: [birth year] DOS: 01/24/2017 CONSULTATION REQUESTED BY: Dr. Alana Pearson. REASON FOR CONSULTATION: Assess the patient's progressive acute respiratory failure. HISTORY OF PRESENT ILLNESS: A 71-year-old white female who has been known to me with past history of pulmonary fibrosis with lymphadenopathy in the mediastinum. The patient has been treated in this hospital previously requiring intubation and mechanical ventilation couple of months ago. She was treated in this hospital and later on transferred to [facility] where she stayed about 3-4 weeks. She was successfully liberated from mechanical ventilator, gradual reduction of the oxygen requirement. The patient was also noted with acute Pseudomonas aeruginosa, pneumonia was noted at that time, which has been treated with intravenous antibiotics. The patient has also received the high dose Solu-Medrol for the patient, which was gradually decreased to the prednisone 10 mg daily, which has been administered. She was staying in the nursing facility for this patient. She started with symptoms of coughing recently about 7 days ago. The coughing has been noted progressive later on with increased shortness of breath. She usually requires oxygen supplementation 6 liters nasal cannula for the long-term use. The oxygen requirement noted significant, increased requirement in the last 12 hours prior to the hospitalization. The patient's oxygen supplementation increased with difficulty maintaining oxygen saturation in normal level with high flow nasal cannula oxygen. She was advised to be sent to the hospital upon my advice as I see the patient at the shelter facility as well. She has been started on doxycycline for the past 5 days as 100 mg p.o. b.i.d. for the treatment of the current acute bronchitis and/or pneumonia. She has been admitted to the hospital yesterday. She was noted oxygen supplementation currently as 100% nonrebreather mask. She denies symptoms of pain in the chest. Denies symptoms of hemoptysis. The patient stated that she has been noted partial improvement in symptoms from yesterday. REVIEW OF SYSTEMS: CONSTITUTIONAL: She does complain of fatigue and tiredness. Denies symptoms of fever or chills. EYES: Denies any burning, redness, or tenderness. EARS, NOSE, AND THROAT: No sore throat, hoarseness, otalgia, postnasal drainage or epistaxis. CARDIOVASCULAR: Denies anginal pain, edema or pain of the lower extremities. GASTROINTESTINAL: Dysphagia, nausea, vomiting, diarrhea, abdominal pain, hematemesis, melena, or hematochezia. SKIN: Denies lesions or rashes. MUSCULOSKELETAL: Denies any acute joint pain. CENTRAL NERVOUS SYSTEM: Denies dizziness, headache, diplopia or syncopal episodes. Remaining systems were reviewed and they were noted all negative. PAST MEDICAL HISTORY: 1. Noted with current interstitial pulmonary fibrosis with fibrotic decline was [place], [place] REPORT OF CONSULTATION NAME: KAREL FLORES UNIT #: [id number] ROOM: 528 DOCTOR: MISHA CLARK MD BIRTHDATE: [birth year] considered. The exact etiology cannot be pinpointed. Several etiologies has been considered, but the further workup not done because of the patient's current labile status, inability to complete and assess further workup except the blood testing was done previously. 2. Chronic hypoxic respiratory failure, use of oxygen supplementation 6 liters nasal cannula. 3. Past pneumonia with Pseudomonas aeruginosa. The patient was treated during her last hospitalization in November 2016. 4. History of chronic moderate obesity. 5. Chronic prednisone dependency. 6. Past GI bleeding. 7. Iron deficiency anemia. 8. Hyperlipidemia. 9. Osteopetrosis. PAST SURGICAL HISTORY: Noted, 1. Cholecystectomy. 2. Bilateral cataract extraction with lens implantation. 3. Hysterectomy. 4. Intubation and mechanical ventilation in 11/2016. 5. Fiberoptic bronchoscopy in 11/2016, which is therapeutic bronchoscopy. SOCIAL HISTORY: The patient is , has 4 children lived at home. She has been noted history of tobacco use about half to 1 pack of cigarettes per day, started at a younger age with complete discontinuation in 2010. No history of past exposure to any pulmonary disease such as dust or work in the [place] environment or chemicals. FAMILY HISTORY: Noncontributory. CURRENT MEDICATIONS: Administered were noted use of Fosamax, sliding scale insulin coverage, Plavix, calcium and vitamin D combination, Flonase, IV Solu-Medrol 40 mg q.8 hours, Lipitor, omeprazole, DuoNeb, Cardizem, formoterol, IV Rocephin and doxycycline. DRUG ALLERGIES: NOTED ALLERGY TO CARAFATE. PHYSICAL EXAMINATION: GENERAL: A 71-year-old white female currently noted to be awake and alert without any distress with 100% nonrebreather mask. VITAL SIGNS: Height and weight, the patient has not been accurately documented on this admission by the nursing staff. Vital signs otherwise shows normal temperature, respiratory rate of 20-26, heart rate 89-100, blood pressure 150/54-142/79. The pulse oxygen saturation on 100% nonrebreather mask noted 98% saturation of oxygen. HEENT: Moderate obesity, wound VAC secondary to the use of the long-term prednisone 10 mg daily. Head was atraumatic. NECK: Supple. CARDIOVASCULAR SYSTEM: S1, S2 audible. LUNGS: Moderate decreased breath sound, diffuse inspiratory crackles. [place], [place] REPORT OF CONSULTATION NAME: KAREL FLORES UNIT #: [id number] ROOM: 528 DOCTOR: RE PLATA MD,MISHA BIRTHDATE: [birth year] ABDOMEN: Soft with moderate obesity, bowel sounds present. No tenderness. EXTREMITIES: Showed no edema, clubbing, cyanosis. SKIN: Shows evidence of some areas of bruising secondary to the long-term prednisone use effect. There were no abnormal rashes or lesions. CENTRAL NERVOUS SYSTEM: Cranial nerves 2-12 intact. LABORATORY DATA: The PT, PTT yesterday were noted normal. Lactic acid yesterday 2.0, which is normal. CMP yesterday in the Emergency Room, BUN 11, creatinine 1.13, sodium 132, remaining CMP was normal. The troponin were noted normal yesterday as well. CBC: WBC count was elevated at 17.4, hemoglobin 10.8, hematocrit 34.1, platelet count 544,000. CT scan of the chest that was completed yesterday on 01/23/2017 does not show evidence of pulmonary embolism. A CTA was noted lymphadenopathy in the mediastinum and hilar area, short dimension lymph node noted several dose in the mediastinum at 2.3 cm in size. The patient was noted with marked worsening of the infiltration in the lungs with area of consolidation noted involving the lung as compared with the previous CT scan of the chest, which were done in 11/2016. There were no pleural effusions. Cystic changes were noted in the lungs bilaterally with subpleural distribution with reticular changes as well. Changes have been present diffusely in the lungs. Large retrocardiac hernia was also noted. IMPRESSION: The patient who has been currently admitted to the hospital noted progressive worsening of the respiratory status with acute severe progressive hypoxic respiratory failure with superimposed acute process with differential diagnosis of diffuse alveolar damage related to the current viral bacterial infection or accelerated course of the current pulmonary fibrosis. The patient with acute interstitial pneumonitis. Exact etiology remains unknown. The lymphadenopathy differential diagnosis would be considered drug-induced lesion as well as possibility of hypersensitivity pneumonitis, sarcoidosis and rare evidence of malignancy as well. PLAN OF TREATMENT: Continue current dose of Solu-Medrol intravenously. Discontinue the Rocephin, start the patient coverage for the Pseudomonas aeruginosa infection because of long-term prednisone use with high risk of Pseudomonas aeruginosa infection. Continue doxycycline as previously ordered as 100 mg p.o. b.i.d. for gram-positive coverage including for possibility of MRSA. Collected sputum for Gram stain and culture. Start the patient on the BiPAP, clear delineation of the code status needs to be done for potential intubation and mechanical ventilation if necessary for the management of respiratory status. Overall prognosis would be considered very guarded. Essentially upon stability, the workup for the interstitial lung disease including the lymphadenopathy will be done, but at this time, it was not noted safe to do any kind of workup for that reason. Other supportive therapy, plan of management and care plan. Usual care. The patient's code status has been noted as comfort care at this time. The confirmation will be obtained from the patient and the family members about that. Arterial blood gases will be done for this patient as well. The BiPAP will be started with settings of 16/10 to maintain a saturation of 92% or greater. [place], [place] REPORT OF CONSULTATION NAME: KAREL FLORES UNIT #: [id number] ROOM: 528 DOCTOR: MISHA CLARK MD BIRTHDATE: [birth year] MISHA GRIMALDO MD CM:CONSTR:REPORT OF CONSULTATION 1213 01/24/17 5092 interface
[2017-01-23 10:08] VITALS: BP 125/59
--- NOTE | 2017-01-23 10:16 | NUR ---
PATIENT DENIES ANY CHEST PAIN. ENRIQUE,RN
--- NOTE | 2017-01-23 10:32 | NUR ---
FAMILY PERSENT IN THE ROOM WITH THE PATIENT, SKIN IS PINK, WARM, AN DRY, RESPIRATIONS ARE NOT LABOED AND PATIENT APPEARS MORE RELAXED AT HIS TIME, PATIENT IS RESTING IN BED, CALL LIGHT IN REACH OF THE PATIENT, CONTINUING TO MONITOR THE PATIENT. LOUIE NUNEZ
[2017-01-23 10:37] LABS: HEMATOCRIT 34.1 % (37.0-47.0); HEMOGLOBIN 10.8 g/dl (12.0-16.0); MEAN CELL VOLUME 86.8 fl (81.0-99.0); MEAN CORPUSCULAR HGB 27.5 pg (27.0-31.0); MEAN CORPUSCULAR HGB CONC 31.7 g/dl (33.0-37.0); MEAN PLATELET VOLUME 9.4 fl (9.6-12.3); PLATELET COUNT AUTOMATED 544 10*3/uL (130-400); RED BLOOD COUNT 3.93 10*6/uL (4.10-5.10); RED CELL DISTRI WIDTH 15.9 % (0-14.5); WHITE BLOOD COUNT 17.4 10*3/uL (4.8-10.8)
[2017-01-23 10:45] VITALS: BP 153/60
[2017-01-23 10:46] LABS: ACT PARTIAL THROMBO TIME 23.4 SECONDS (20.8-31.5)
[2017-01-23 10:54] LABS: ALBUMIN 2.5 gm/dl (3.1-4.5); ALKALINE PHOSPHATASE 116 U/L (45-117); BUN 11 mg/dl (7-24); CHLORIDE 98 mmol/L (98-107); CREATININE 1.13 mg/dL (0.55-1.02); POTASSIUM 4.4 mmol/L (3.5-5.1); SGOT/AST 27 IU/L (3-35); SGPT/ALT 40 U/L (12-78); SODIUM 132 mmol/L (136-145); TOTAL PROTEIN 8.1 gm/dL (6.4-8.2)
[2017-01-23 10:58] LABS: TOTAL CELLS COUNTED 100 #CELLS; TROPONIN I < 0.015 ng/ml (<0.045)
[2017-01-23 10:59] LABS: PLATELET SUFFICIENCY HIGH (NORMAL); POLYCHROMASIA SLIGHT; ROULEAUX SLIGHT; TOXIC GRANULATION SLIGHT
[2017-01-23 11:16] VITALS: BP 158/54
--- NOTE | 2017-01-23 11:20 | NUR ---
PATIENT TAKEN TO THE FLOOR BY GARY CHRISTIE. LOUIE NUNEZ
--- NOTE | 2017-01-23 11:45 | NUR ---
A 71, admitted to 5E, under the services of ARDEN Thomas MD with a diagnosis of ACUTE RESPIRATORY FAILURE WITH HYPOXEMIA. Chief complaint is SHORTNESS OF BREATH. Patient arrived via bed from ER. Monitor applied. Initial assessment completed. Vital signs taken and recorded. ARDEN THOMAS MD notified of admission to the unit. Orders received. See assessment for past medical history, medications and allergies. Patient and/or family oriented to unit. [facility] visitation policy reviewed. Clothing/patient valuable form completed. ASSESSMNET COMPLETE. FLU AND PNEUMONIA VACCINATIONS CURRENT. NO OPEN WOUNDS. WILL VERIFY HOME MEDICATIONS. CARSON ROBIN
[2017-01-23] MEDS ORDERED: CARDIZEM60 MG PO (12:42)
[2017-01-23] MEDS ORDERED: XANAX0.25 MG PO (12:44)
--- NOTE | 2017-01-23 13:00 | NUR ---
UNSUCCESSFUL ATTEMPT TO L AND R RADIAL ARTERIES. L. RADIAL PRODUCING A FLASH, BLOOD STOPPED. ABG PER POLICY AND PROCEDURE. RN INFORMED.
[2017-01-23] MEDS ORDERED: AMILORIDE HYDROC5 MG PO (13:32)
[2017-01-23] MEDS ORDERED: BREO ELLIPTA 11 EACH INH (13:34)
[2017-01-23] MEDS ORDERED: DULCOLAX10 M1 R (13:35)
[2017-01-23] MEDS ORDERED: FOSAMAX70 M1 PO (13:36)
[2017-01-23] MEDS ORDERED: FLONASE ALLERG9.9 ML NAS (13:36)
[2017-01-23] MEDS ORDERED: MILK OF MA400 MG/5 M PO (13:39)
[2017-01-23] MEDS ORDERED: OMEPRAZOLE20 M2 PO (13:41)
[2017-01-23] MEDS ORDERED: NOVOLOG10 ML IV (13:57)
--- NOTE | 2017-01-23 14:30 | NUR ---
SPKE TO DR GRIMALDO REGARDING PT CONSULT. ORDERS RECEIVED.
[2017-01-23 16:00] VITALS: BP 134/42
[2017-01-23 17:24] LABS: BILIRUBIN NEGATIVE (NEGATIVE); BLOOD NEGATIVE (NEGATIVE); CLARITY SL CLOUDY (CLEAR); COLOR YELLOW (YELLOW); GLUCOSE NEGATIVE (NEGATIVE); KETONE NEGATIVE (NEGATIVE); LEUKO ESTERASE NEGATIVE (NEGATIVE); NITRITE NEGATIVE (NEGATIVE); SPECIFIC GRAVITY <= 1.005 (1.005-1.030); UROBILINOGEN 0.2 E.U./dl (0.2-1.0)
[2017-01-23 17:41] LABS: BACTERIA TRACE
[2017-01-23 17:42] LABS: RBC 0-2 rbc/hpf (0-2); WBC 0-2 wbc/hpf (0-5)
--- NOTE | 2017-01-23 19:36 | NUR ---
24 HR chart check completed.
[2017-01-23 20:00] VITALS: BP 134/47
[2017-01-24] VITALS: BP 128/48
[2017-01-24 08:00] VITALS: BP 142/79
--- NOTE | 2017-01-24 08:00 | NUR ---
GAME ROOM ATTENDANT AND DR BIGGS VS. PT CAME FROM [facility] BUT WOULD LIKE TO GO HOME UPON DC. DR BIGGS EXPLAINED THAT PT HAS BILATERAL PNEUMONIA AND IS VERY ILL AT THIS TIME. PT ON VENTI MASK. PT AGREES TO GO BACK TO [facility] IF NEEDED. WILL CHECK TO SEE IF [facility] WILL TAKE HER BACK.
--- NOTE | 2017-01-24 10:53 | NUR ---
[facility] INSULIN D/C'D DUE TO NEW ORDERED PUT IN FOR BID BY DR BIGGS.
[2017-01-24 12:00] VITALS: BP 147/52
--- NOTE | 2017-01-24 12:49 | NUR ---
PT EXPRESSED THAT SHE WANTS ALL LIFE SAVING MEASURES EXCEPT TO BE INTUBATED. I NOTIFIED DR BIGGS. CODE STATUS WAS CHANGED.
[2017-01-24 12:53] LABS: ABG HCO3 22.4 mmol/l (22-26); ABG O2 SATURATION 96.8 % (95-97); ARTERIAL BLOOD GAS PCO2 38.9 mmHg (35-45); ARTERIAL BLOOD GAS PH 7.378 (7.35-7.45); ARTERIAL BLOOD GAS PO2 91.7 mmHg (80-90)
--- NOTE | 2017-01-24 13:09 | NUR ---
DR GRIMALDO NOTIFIED OF ABGs. HE STATED FOR HER TO WEAR BIPAP "MOST OF THE TIME". I NOTIFIED RESP THERAPY OF THIS.
[2017-01-24 16:00] VITALS: BP 161/59
--- NOTE | 2017-01-24 16:42 | NUR ---
GIVEN XANAX AT THIS TIME FOR C/O ANXIETY FROM BIPAP. WILL CONT TO MONITOR. CALL LIGHT IN REACH.
--- NOTE | 2017-01-24 19:26 | NUR ---
PT PLACED ON BIPAP
--- NOTE | 2017-01-24 23:20 | NUR ---
PT STILL ON BIPAP
[2017-01-25] VITALS: BP 151/53
--- NOTE | 2017-01-25 00:55 | NUR ---
PATIENT RESTING IN BED WITH EYES CLOSED. BIPAP IN PLACE. PATIENT AROUSES TO VERBAL STIMULI. NO SIGNS OR SYMPTOMS OF DISTRESS NOTED. WILL CONTINUE TO MONITOR. CALL LIGHT IN REACH.
[2017-01-25 08:00] VITALS: BP 130/76
--- NOTE | 2017-01-25 08:45 | NUR ---
PT SITTING UP IN BED, NO DISTRESS NOTED; 5.5L NC ON AT THIS TIME. PT DENIES C/O AT THIS TIME . PT STATES SHE FEELS BETTER THAN YESTERDAY. DR GRIMALDO IN TO SEE PT . CALL LIGHT WITHIN REACH . WILL MONITOR
--- NOTE | 2017-01-25 11:38 | NUR ---
Physical Therapy evaluation completed. Patient completed her breathing treatment immediately prior to this session. Patient denied pain. Patient is SBA with bed mobility and sit to/from stand from bedside with walker upon standing. Patient able to sit EOB using B UE support x 2 minutes. Oxgyen 72% after LE assessment. Waited 3 minutes on 6L oxgyen and O2 sat increased to 90% Patient gait with CGA x 1, walker and 6 L portable O2 to x 15ft, turned steadily and walked x 15 ft. Upon sitting O2 sat was 60%. RN at bedside and applied bipap, patient supine to assist relaxation. After approximately 5 minutes, O2 sat was 89% and patient was placed back on nasal cannula by her RN. Pt's daughter's at her bedside throughout this visit. Call button at bedside upon this PT departure. Moderate complexity PT eval due to time for chart review and time spent during this eval. Patient required PT and RN to properly keep oxgyen saturation WFL. Continue PT for improving functional mobility while monitoring O2 sat. Plan for pt to return to SNF upon DC d/t significant SOB with functional mobiliyt and requiring ongoing assistance for all mobility. Thank you for this referral, Karolyn Pedroza, PT
[2017-01-25 12:00] VITALS: BP 130/50
[2017-01-25 16:00] VITALS: BP 129/50
[2017-01-26] VITALS: BP 142/52
--- NOTE | 2017-01-26 01:20 | NUR ---
24 HR chart check completed.
[2017-01-26 08:00] VITALS: BP 146/50
--- NOTE | 2017-01-26 08:30 | NUR ---
PT RESTING IN BED. NO DSITRESS NOTED. DR BIGGS AND DR GRIMALDO IN TO SEE PT. WILL MONITOR
[2017-01-26] MEDS ORDERED: DUONEB 3 MG/3 ML3 M1 INH (08:54)
--- NOTE | 2017-01-26 09:31 | NUR ---
PHYSICAL THERAPY Patient seen this am 1:1 for therapy supine in bed with continuous O2-5L via NC. Patient was very pleasant voicing no new c/o's and transfers sup to sit, Min A, tolerating EOB sit x 5 minutes, SBA x 1. Patient transfers sit to stand, CGA and completed SPT to bedside chair, SUGAR CANE PLANTER/Min A, demonstrating no SOB following tranfer. After brief seated rest, patient peformed seated B LE therex, all planes x 10 reps each to increase LE strength with v/c to complete with increased technique. Patient remained in bedside chair awaiting breakfast tray with call light, telephone and tray table. Will continue per POC to improve activity tolerance with decreased SOB as tolerated. Tavo Dumont, PROCESS LINE OPERATOR
--- NOTE | 2017-01-26 09:47 | NUR ---
PT REQUESTED AND GIVEN XANAX FOR C/O ANXIETY. WILL MONITOR
--- NOTE | 2017-01-26 12:00 | NUR ---
XANAX EFFECTIVE. WILL MONITOR
--- NOTE | 2017-01-26 14:25 | NUR ---
SW ARRANGED TRANSPORTATION WITH [facility] AT 3:45PM TO RETURN TO [facility].
--- NOTE | 2017-01-26 14:26 | NUR ---
SALENA INFORMED CONCRETE MASON CINDY THAT TRANSPORTATION WAS SCHEDULD WITH [facility] WITH [facility] 3:45PM.
--- NOTE | 2017-01-26 14:29 | NUR ---
SALENA NOTIFIED SHIRA DACOSTA THAT PT WS BEING PICKED UP BY [facility] AT 3:45PM TO RETURN TO FACILITY.
--- NOTE | 2017-01-26 15:00 | NUR ---
PT STATES THAT SHE CALLED HER DAUGHTER TO INFORM HER THAT SHE WAS GOING TO [place] [facility] TODAY
--- NOTE | 2017-01-26 15:35 | NUR ---
REPORT CALLED TO SHIRA CALLES
--- NOTE | 2017-01-26 15:53 | NUR ---
Discharge instructions reviewed with patient/family. Patient receptive and verbalizes understanding. Follow-up care arranged. Written instructions given to patient/family. ALIYA ARMENTA
--- NOTE | 2017-01-27 07:59 | NUR ---
PHYSICAL THERAPY CO-SIGN I approve of the Phyical Therapy notes written above. LEA HUDSON PT
== END 2017-01-26 15:53 | disposition home or self-care (01) | DRG 177 ==
LOC: ED 10:03 → 5E 10:26 → EDHOLD 10:26 → 5E 10:39
PROVIDERS: Emergency Medicine; Internal Medicine Critical Care Medicine; ADMIT Internal Medicine
DX: J15.6 Pneumonia due to other Gram-negative bacteria (principal); J96.21 Acute and chronic respiratory failure with hypoxia; J84.114 Acute interstitial pneumonitis; E11.22 Type 2 diabetes mellitus with diabetic chronic kidney disease; D50.9 Iron deficiency anemia, unspecified; F17.210 Nicotine dependence, cigarettes, uncomplicated; J84.10 Pulmonary fibrosis, unspecified; R59.1 Generalized enlarged lymph nodes; R62.7 Adult failure to thrive; F41.1 Generalized anxiety disorder; N18.9 Chronic kidney disease, unspecified; I12.9 Hypertensive chronic kidney disease with stage 1 through stage 4 chronic kidney disease, or unspecified chronic kidney disease; E66.8 Other obesity; E78.5 Hyperlipidemia, unspecified; M81.0 Age-related osteoporosis without current pathological fracture; Z96.1 Presence of intraocular lens; D86.9 Sarcoidosis, unspecified; Z86.73 Personal history of transient ischemic attack (TIA), and cerebral infarction without residual deficits; Z79.52 Long term (current) use of systemic steroids; Z90.49 Acquired absence of other specified parts of digestive tract; Z90.710 Acquired absence of both cervix and uterus; Z98.42 Cataract extraction status, left eye; Z98.41 Cataract extraction status, right eye; Z88.8 Allergy status to other drugs, medicaments and biological substances; Z87.440 Personal history of urinary (tract) infections

== ENCOUNTER 2017-02-21 17:21 | Inpatient (IN) | payer MEDICARE, OTHER ==
[~2017-02-21] VITALS: Ht 160 cm; Wt 62.0 kg
--- NOTE | ~2017-02-21 | EKG ---
[place], [place] ELECTROCARDIOGRAM REPORT NAME: KAREL FLORES UNIT #: [id number] ROOM: 507 DOCTOR: RE PLATA MD,MISHA BIRTHDATE: [birth year] DOS: 02/21/2017 ELECTROCARDIOGRAM REPORT TIME: 6:14 p.m. The testing was done for assessment of symptoms of shortness of breath. Normal sinus rhythm noted. Heart rate 95 beats per minute. Electro voltage criteria for the patient. LVH was also noted as well. Nonspecific ST-T changes were noted. MISHA GRIMALDO MD CM:EKGRPT:ELECTROCARDIOGRAM REPORT [id number] MISHA PLATA MD
--- NOTE | ~2017-02-21 | PR ---
[place], [place] PROGRESS NOTE NAME: KAREL FLORES UNIT #: [id number] ROOM: 507 DOCTOR: ARDEN BIGGS MD BIRTHDATE: [birth year] DOS: SUBJECTIVE: The patient is doing fine without any complaints this morning. She did not want to go to [facility], but she needs to continue the antibiotics for a few more days. OBJECTIVE: VITAL SIGNS: Blood pressure is 172/53, pulse of 79, respirations 18, temperature 97.5. LUNGS: Diminished breath sounds, few scattered rales heard. HEART: Regular. ABDOMEN: Obese, soft, nontender. EXTREMITIES: Without any edema. ASSESSMENT AND PLAN: 1. The patient with recent pseudomonas infection for which she has received IV meropenem, which she will continue to receive at the care home. PICC line will be placed. 2. MRA of the carotids noted, less than 50% stenosis right carotid ____ right ICA. Rest were all open. 3. Chronic obstructive pulmonary disease, end-stage, oxygen dependent with exacerbation, stable and improving. The plan is to discharge her to [facility] tomorrow. PICC line to be placed today. ARDEN BIGGS MD CM:PNTRANS [id number] ARDEN BIGGS MD 02/27/17 1933 interface
--- NOTE | ~2017-02-21 | PR ---
[place], [place] PROGRESS NOTE NAME: KAREL FLORES UNIT #: [id number] ROOM: 507 DOCTOR: RE PLATA MD,MISHA BIRTHDATE: [birth year] DOS: 02/26/2017 SUBJECTIVE: She has been noted comfortable at this time. Continued to show reduction of the shortness of breath. Denies symptoms of her chest pain. Coughing has been noted minimal. She was continued on intravenous antibiotics. OBJECTIVE: VITAL SIGNS: Normal temperature, respiratory rate 18, heart rate 82, blood pressure 149/58. The pulse oxygen saturation of the patient recorded as 95% with the BiPAP and oxygen supplementation 6 liters nasal cannula. HEENT: ____. Head was atraumatic. Eyes nonicterus. NECK: Supple. CARDIOVASCULAR: S1, S2 is audible. LUNGS: The patient was noted inspiratory crackles. There was no wheezing. ABDOMEN: Soft, nontender. LABORATORY DATA: No new labs were done on patient today. The chest x-ray that was done yesterday PA lateral view was reviewed, showed reduction of previous noted. Bilateral pulmonary infiltration understanding underlying chronic interstitial lung disease, remains the same. IMPRESSION: 1. Stable respiratory status was noted resolving acute Pseudomonas aeruginosa pneumonia with the recurrent hospitalization. 2. History of interstitial lung disease as well as mediastinal lymphadenopathy. 3. Acute on chronic hypoxic respiratory failure, resolving. PLAN OF TREATMENT: Solu-Medrol will be discontinued today. The patient was started on prednisone 10 mg in preparation of gradual reduction. Discontinuation in the next couple of weeks ____. Continue our supportive therapy, plan of management. MISHA GRIMALDO MD CM:PNTRANS [id number] MISHA PLATA MD 02/26/171805 interface
--- NOTE | ~2017-02-21 | PR ---
[place], [place] PROGRESS NOTE NAME[id number] UNIT #: [id number] ROOM: 507 DOCTOR: GALILEO BAILEY MD BIRTHDATE: [birth year] DOS: 02/26/2017 SUBJECTIVE: The patient continues to feel better. Breathing is improving. OBJECTIVE: VITAL SIGNS: Blood pressure 138/60, heart rate 87 beats per minute, breathing 22 times per minute, afebrile. GENERAL APPEARANCE: The patient is alert and oriented x 3, in no visible distress, except for obesity and patient wearing oxygen. HEENT AND NECK: Exam within normal limits. CARDIOVASCULAR SYSTEM: Heart rate is regular in rate and rhythm. S1 and S2 normally audible. LUNGS: Clear to auscultation. ABDOMEN: Soft, nontender. No obvious organomegaly. Bowel sounds are present. EXTREMITIES: Without significant cyanosis or edema. IMPRESSION AND PLAN: 1. The patient with acute Pseudomonas aeruginosa pneumonitis, being treated with meropenem and being followed by Dr. Marie. 2. Sinus bradycardia, resolved. The heart rate is staying normal. 3. Adult failure to thrive. The patient came from residential, but she would rather go home after discharge from the hospital at this time. 4. Acute exacerbation of severe underlying chronic obstructive pulmonary disease with acute over chronic respiratory failure, being treated. GALILEO BAILEY MD CM:PNTRANS [id number] GALILEO BAILEY MD 02/27/17 0340 interface
--- NOTE | ~2017-02-21 | PR ---
[place], [place] PROGRESS NOTE NAME: KAREL FLORES UNIT #: [id number] ROOM: 507 DOCTOR: ARDEN BIGGS MD BIRTHDATE: [birth year] DOS: 02/28/2017 SUBJECTIVE: The patient is doing fine without any complaint. Denies any chest pains, palpitations or shortness of breath. PHYSICAL EXAMINATION: VITAL SIGNS: Blood pressure is 165/50, pulse of 88, respirations 20, temperature 97.6. LUNGS: Clear. HEART: Regular. ABDOMEN: Obese, soft, nontender. EXTREMITIES: Without any edema. LABORATORY DATA: Blood culture shows no bacterial growth. Chest x-ray shows right extensive chronic fibrosis. ASSESSMENT AND PLAN: 1. Recent pseudomonas infection, [facility]. PICC line has been placed. 2. Chronic interstitial lung disease with pulmonary fibrosis, on maximal treatment plan with good oxygenation on the high flow O2. Discussed with the patient as well as Dr. Marie. ARDEN BIGGS MD CM:PNTRANS 0924 ARDEN BIGGS MD 02/28/17 1005 interface
--- NOTE | ~2017-02-21 | DS ---
[place], [place] DISCHARGE SUMMARY NAME: KAREL FLORES UNIT #: [id number] ROOM: 507 DOCTOR: ARDEN BIGGS MD BIRTHDATE: [birth year] DOS: 02/28/2017 DIAGNOSES: 1. Pseudomonas aeruginosa infection of the lung. 2. Chronic interstitial lung disease with pulmonary fibrosis. 3. Benign hypertension. 4. History of transient ischemic attack. 5. History of gastrointestinal bleed. 6. Negative MRA of the carotids. 7. Postmenopausal osteoporosis. 8. Mixed hyperlipidemia. 9. Chronic respiratory failure. DISCHARGE MEDICATIONS: Will be the same as on admission, they are meropenem 1 gram IV q. 8 hours for 7 days, Plavix 75, atorvastatin 20, ____ calcium 1 tablet daily, Cardizem 120 b.i.d., Xanax 0.25 q. 8 hours p.r.n., Breo Ellipta 1 inhalation daily, Dulcolax 10 mg p.r.n. for constipation, alendronate 70 once weekly, omeprazole 20 b.i.d., breathing treatments t.i.d., mag oxide 400 mg daily p.r.n. for constipation. HOSPITAL COURSE: The patient is 71-year-old, very well known to us, comes in with complaints of difficulty breathing. She was in acute hypoxic respiratory failure when she arrived. She was placed on IV steroids and breathing treatments and oxygen supplementation. She is currently on high flow O2, also was started on meropenem. With the above treatment plan, she has improved. Dr. Marie is tapering the patient off the steroids and he feels that the steroids may be increasing her risk of pneumonia. The patient's oxygenation has improved and is relatively stable on the current treatment plan. A PICC line has been placed and the recommendation was to give the patient another 7 more days of antibiotics. Social Service has been consulted and the patient is to go to [facility] today for continued IV antibiotics. The patient is to be followed by Dr. Garcia at the long-term as well as Dr. Marie. [place], [place] DISCHARGE SUMMARY NAME: KAREL FLORES UNIT #: [id number] ROOM: 507 DOCTOR: ARDEN BIGGS MD BIRTHDATE: [birth year] ARDEN BIGGS MD CM:ANA 2 8 ARDEN BIGGS MD 02/28/17948 interface
--- NOTE | ~2017-02-21 | WRIGHTHP ---
[place], [place] PATIENT HISTORY AND PHYSICAL EXAM NAME: KAREL FLORES [facility] #: [id number] UNIT #: [id number] ROOM: 507 DOCTOR: ARDEN BIGGS MD BIRTHDATE: [birth year] DOS: 02/21/2017 HISTORY OF PRESENT ILLNESS: This patient is 71 years old. The patient is very well known to us. The patient was recently discharged from the [facility] and was seen in the office last . The patient at that time was doing well without any complaints. States that her prednisone was tapered down to 5 mg. She developed increasing shortness of breath after that and so decided to come into the Emergency Room. She was hypoxic in the ER with saturation in the 80s. She had seen Dr. Muse today, but she at that time was doing fine. PAST MEDICAL HISTORY: Significant for: 1. Interstitial lung disease with pulmonary fibrosis. 2. History of recent pseudomonas pneumonia. 3. Chronic respiratory failure. 4. Adult failure to thrive. 5. Reactive mediastinal lymphadenopathy. 6. Generalized anxiety disorder. 7. Benign hypertension. 8. History of CVA. MEDICATIONS: She is currently on are Breo Ellipta, DuoNeb, alendronate 70 once weekly, Xanax 0.25 q.8, atorvastatin 20 daily, calcium 500 daily, Plavix 75 daily, diltiazem 120 b.i.d., omeprazole 20 b.i.d. SOCIAL HISTORY: Nonsmoker, does not use any alcohol. PHYSICAL EXAMINATION: GENERAL: She is awake and alert and oriented this morning. Any low activity drops her pulse ox to the low 70s. She was sitting up, trying to eat her breakfast and her saturation dropped to 75. I did place her on a Ventimask. VITAL SIGNS: Blood pressure is 156/60, pulse of 81, temperature 98.3, respirations about 24. LUNGS: Diminished breath sounds, few scattered wheezes and rhonchi heard. HEART: Regular. ABDOMEN: Obese. EXTREMITIES: Without any edema. ASSESSMENT AND PLAN: 1. The patient with acute respiratory failure from interstitial lung disease and exacerbation of COPD. The patient has been admitted. IV steroids have been added. Dr. Marie has been consulted and IV Rocephin is also started. 2. Elevated lactic acid, possibly from the acute respiratory distress. Lactic acid has normalized. Sepsis is being ruled out. Blood cultures are pending. 3. Benign hypertension, controlled. 4. For recent carotid Doppler showing significant carotid disease, we will go ahead and arrange for an MRA of the carotids. [place], [place] PATIENT HISTORY AND PHYSICAL EXAM NAME: KAREL FLORES UNIT #: [id number] ROOM: 507 DOCTOR: ARDEN BIGGS MD BIRTHDATE: [birth year] ARDEN BIGGS MD CM:HISPHYS:PATIENT HISTORY AND PHYSICAL EXAMINATION [id number] ARDEN BIGGS MD 02/22/17 1039 interface
--- NOTE | ~2017-02-21 | PR ---
[place], [place] PROGRESS NOTE NAME: KAREL FLORES UNIT #: [id number] ROOM: 507 DOCTOR: RE PLATA MD,MISHA BIRTHDATE: [birth year] DOS: 02/24/2017 SUBJECTIVE: She has been noted comfortable at this time with reduction in respiratory symptom. The patient has been noted there is gradual improvement in symptoms of shortness of breath. Oxygen supplementation was continued with the patient nasal cannula for this patient with Ventimask and BiPAP was also used by the patient intermittently. OBJECTIVE: VITAL SIGNS: Normal temperature, respiratory rate 18, heart rate 69, blood pressure 122/44. The pulse oxygen saturation of the patient recorded as 95% saturation on 6 L nasal cannula. HEENT: Examination shows no acute change. NECK: Supple. CARDIOVASCULAR: S1, S2 audible. LUNGS: The patient chronic inspiratory crackles, no wheezing. ABDOMEN: Soft, nontender. EXTREMITIES: Without any edema. LABORATORY DATA: Culture of the blood, no bacterial growth from admission. IMPRESSION: The patient with acute pneumonia, aeruginosa pneumonia recurrence with [id number] severe hypoxic respiratory failure, responding to the treatment gradually. PLAN OF TREATMENT: No changes in the plan of management. Continuation of bronchodilators, oxygen supplementation. The plan is to gradually taper off the steroids for the patient because of recurrent pneumonia with Pseudomonas aeruginosa. At this time, the patient has been getting Solu-Medrol 30 mg daily, which will be further decreased for this patient, which will be changed out to order prednisone at 20 mg daily and then gradually tapered off for the next couple of weeks. MISHA GRIMALDO MD CM:PNTRANS 1051 [id number] MISHA PLATA MD 02/24/17 1644 interface
--- NOTE | ~2017-02-21 | PR ---
[place], [place] PROGRESS NOTE NAME: KAREL FLORES UNIT #: [id number] ROOM: 507 DOCTOR: ARDEN BIGGS MD BIRTHDATE: [birth year] DOS: 02/24/2017 SUBJECTIVE: The patient is feeling much better, does not have any new complaints. OBJECTIVE: VITAL SIGNS: Blood pressure is 124/44, pulse of 69, respirations 18, temperature 97.6. LUNGS: Diminished breath sounds. No wheezes, rales or rhonchi heard. HEART: Regular. ABDOMEN: Soft. EXTREMITIES: Without any edema. ASSESSMENT AND PLAN: 1. Pulmonary fibrosis with acute exacerbation of chronic obstructive pulmonary disease, on IV steroids. 2. Recent pseudomonas pneumonia. Dr. Marie has placed her on meropenem. 3. Adult failure to thrive. The patient is not wanting to go back to the [facility]. The plan is to discharge her to home soon. 4. Bradycardia, possibly from the Cardizem, the dosage will be cut back. ARDEN BIGGS MD CM:PNTRANS [id number] [id number] ARDEN BIGGS MD 02/24/17 1309 interface
--- NOTE | ~2017-02-21 | PR ---
[place], [place] PROGRESS NOTE NAME: KAREL FLORES UNIT #: [id number] ROOM: 507 DOCTOR: RE PLATA MD,MISHA BIRTHDATE: [birth year] DOS: 02/28/2017 SUBJECTIVE: She has been noted comfortable at this time was planned for discharge to the [facility] facility, but has a PICC line in place. Shortness of breath has been improving. OBJECTIVE: VITAL SIGNS: Normal temperature, respiratory rate 20, heart rate 88, blood pressure 165/50. Pulse oxygen saturation on 6 liters canula 91% saturation. HEENT: No acute change. NECK: Supple. CARDIOVASCULAR: S1, S2 audible. LUNGS: Noted without any wheeze or crackles. The wheezing rather chronic respiratory tract remains unchanged secondary to pulmonary fibrosis. ABDOMEN: Soft, nontender. IMPRESSION: 1. Stable respiratory status with resolving acute pneumonia with Pseudomonas aeruginosa, currently being gradually tapered off the corticosteroids completely. 2. Debility. PLAN OF TREATMENT: No changes in the therapy. Continue patient's current plan of management as previously. Usual care, other supportive plan of care. MISHA GRIMALDO MD CM:PNTRANS [id number] MISHA PLATA MD 02/28/17 1259 interface
--- NOTE | ~2017-02-21 | PR ---
[place], [place] PROGRESS NOTE [id number] UNIT #: [id number] ROOM: 507 DOCTOR: RE PLATA MD,MISHA BIRTHDATE: [birth year] DOS: 02/27/2017 SUBJECTIVE: She has been comfortably resting at this time. At this time, continues to show improvement in respiratory symptom. Physical therapy has been ongoing for overall debility. OBJECTIVE: VITAL SIGNS: For the patient which has been recorded shows normal temperature, respiratory rate 18, heart rate 79, blood pressure 172/53-156/50. The pulse oxygen saturation on 6 L nasal cannula was noted as 90%-94% at rest. HEENT: Examination shows chronic obesity with a steroid effect of dailey facies. NECK: Supple. CARDIOVASCULAR: S1, S2 audible. LUNGS: The patient was noted with inspiratory crackles which is chronic. ABDOMEN: Soft, nontender. EXTREMITIES: Without any acute edema. IMPRESSION: 1. The patient who has been currently noted with gradual reduction and improvement in the respiratory symptom with resolving acute pseudomonas aeruginosa with use of the current steroids, which has been gradually been tapered off. 2. Chronic interstitial lung disease with mediastinal lymphadenopathy, etiology remains unclear. PLAN OF MANAGEMENT: Continuation of the current therapy for the patient as previously in progress. Additional change in treatment will be done based on progression of the illness. No immediate other treatment will be necessary. The patient has been planned for the PICC line insertion and transfer to assisted facility. The discharge planning was discussed with Dr. Alana Pearson. MISHA GRIMALDO MD CM:PNTRANS [id number] MISHA PLATA MD 02/28/17 0158 interface
--- NOTE | ~2017-02-21 | CON ---
[place], [place] REPORT OF CONSULTATION NAME: KAREL FLORES [facility] #: [id number] UNIT #: [id number] ROOM: 507 DOCTOR: RE PLATA MD,MISHA BIRTHDATE: [birth year] DOS: 02/22/2017 PULMONARY CONSULTATION EVALUATION AND MANAGEMENT CONSULTATION REQUESTED: The patient by Dr. Alana Pearson. REASON FOR CONSULTATION: Assessment for the patient of assessment for the progressive acute on chronic hypoxic respiratory failure with history of interstitial lung disease and others. HISTORY OF PRESENT ILLNESS: A 71-year-old white female, who has been noted extremely familiar to me with past history of lymphadenopathy in mediastinum and bilateral pulmonary infiltration, etiology unclear with various differential diagnosis of this patient. Main consideration treated with prednisone 10 mg daily basis and chronic oxygen supplementation, and bronchodilators. She has been treated in this hospital in January of 2017 for the patient and discharged to [facility] for this patient. On January 26, 2017, she was discharged from the [facility], a day prior to the Thanksgiving. She has been taking the prednisone 10 mg daily and also use of oxygen supplementation up to 6 liters nasal cannula for the patient at rest and with exertion. The patient was noted with usual state of health for this patient without any ongoing new respiratory symptom. Couple of days ago, the patient started having increased coughing with symptoms of shortness of breath and progressive hypoxia. The patient stated the symptoms have been noted progressive. She presented to the hospital emergency room for this patient and has been hospitalized the patient for further assessment. She denies any symptoms of chest pain with that. The cough has been noted without any sputum expectoration. Denies symptoms of hemoptysis. REVIEW OF SYSTEMS: CONSTITUTIONAL SYMPTOMS: She was noted with symptoms of fatigue and tiredness without symptoms of fever or chills. EYES: Denies any burning, redness, or tenderness. CARDIOVASCULAR: Denies anginal pain noted with mild edema at times of the lower extremities and the ankles. GASTROINTESTINAL: Denies dysphagia, nausea, vomiting, diarrhea, abdominal pain, hematemesis, melena, hematochezia, or any abnormal weight loss. GENITOURINARY SYMPTOMS: Denies dysuria, suprapubic pain, or hematuria. MUSCULOSKELETAL: No acute joint pain, redness, or tenderness. SKIN: The patient noted with intermittent bruising of the skin related to the long-term use of the prednisone and medication related without any rashes or ulcers. CENTRAL NERVOUS SYSTEM: Dizziness, headache, diplopia, syncopal episode, general weakness was persistent. Remaining systems were reviewed for the patient, they were noted all negative. PAST MEDICAL HISTORY: 1. Recurrent Pseudomonas aeruginosa pneumonia. 2. Chronic prednisone dependency. [place], [place] REPORT OF CONSULTATION NAME: KAREL FLORES UNIT #: [id number] ROOM: 507 DOCTOR: MISHA CLARK MD BIRTHDATE: [birth year] 3. Pulmonary fibrosis with mediastinal and hilar lymphadenopathy, which is chronic. 4. Acute chronic hypoxic respiratory failure, use of oxygen 6 liters nasal cannula. 5. Dtnw-yy-hcovxyvx obesity. 6. Chronic steroid use. 7. Past GI bleeding with iron deficiency anemia history. 8. Hyperlipidemia. 9. Osteoporosis. PAST SURGICAL HISTORY: 1. Cholecystectomy. 2. Bilateral cataract extraction with lens implantation. 3. Past intubation and mechanical ventilation in November 2016. 4. Therapeutic bronchoscopy on the patient done while she was on the ventilator in 11/2016. SOCIAL HISTORY: The patient is , has 4 children. Noted history of tobacco use, from teenager, half to a pack of cigarettes per day, discontinued in 2010. There was no history of occupation related pulmonary exposure. She denied any exposure to the dust, chemicals or more for the patient at home or other places. FAMILY HISTORY: For the patient was unknown. MEDICATIONS: Home medications which was administered by the patient was noted as use of: 1. Prednisone 10 mg daily. 2. Fosamax 70 mg daily. 3. Xanax 0.25 mg p.r.n. for anxiety. 4. Lipitor 20 mg daily. 5. Plavix 75 mg daily. 6. Cardizem 120 mg every 6 hours. 7. Omeprazole 20 mg daily. 8. Sliding scale insulin coverage. DRUG ALLERGIES: NOTED ALLERGY TO THE CARAFATE. PHYSICAL EXAMINATION: GENERAL: A 71-year-old female, who has been noted currently awake and alert without any distress on 100% oxygen supplementation nasal cannula with pulse oxygen saturation was recorded as 100%. HEENT: Head was atraumatic. Eyes: No icterus. Sanchez facies, again chronic prednisone ____ the patient was noted. CARDIOVASCULAR SYSTEM: S1, S2 audible. LUNGS: Crackles of the lung were noted chronic, which was inspiratory. There was no wheezing heard. ABDOMEN: Soft, nontender. EXTREMITIES: Noted without any edema, clubbing or cyanosis. CENTRAL NERVOUS SYSTEM: Cranial nerves 2-12 intact. [place], [place] REPORT OF CONSULTATION NAME: KAREL FLORES UNIT #: [id number] ROOM: 507 DOCTOR: RE PLATA MD,MISHA BIRTHDATE: [birth year] MUSCULOSKELETAL: No deformities. SKIN: No lesions or rashes. Chronic bruising of the skin noted intermittently in the upper extremities. LABORATORY DATA: CBC from 02/21: WBC count 11.9, hemoglobin 11.4, hematocrit 35.8, platelet count 369,000. Lactic acid 3.2 on admission. Follow up 1.4. CMP of the patient of February 21, glucose 219, BUN and creatinine were normal, potassium 3.4. Troponins were normal. PT/PTT for the patient yesterday was noted as normal. The chest x-rays that was done, 2-view for the patient yesterday was reviewed, shows increased infiltration of the patient has been noted as compared with the last chest x-ray of the patient comparison, which was done on the back system for this patient of 01/23/2017. Enlargement of the pulmonary hilar area noted with a chronic finding. There were no pleural effusions. IMPRESSION: 1. The patient who had been admitted to the hospital. The patient reports no pulmonary infiltration. Past history of twice treatment for the patient with Pseudomonas aeruginosa with chronic prednisone use at the current infiltration and acute on chronic hypoxic respiratory failure, recurrent for possibility of recurrence of pneumonia of pseudomonas would be considered in the differential diagnosis. 2. History of lymphadenopathy, mediastinal for the patient in the hilar area. Etiology is unclear. The patient was not noted well enough to biopsy that. 3. Lactic acidosis, possibility of acute sepsis would be considered. 4. Hyperglycemia for this patient related to chronic long-term prednisone use. 5. General anxiety disorder and essential hypertension. 6. History of hypercholesterolemia. PLAN OF TREATMENT: Discontinuation of the current Rocephin and start the patient meropenem, which has been used previously. The patient for the medically suspected acute pneumonia with Pseudomonas aeruginosa. The patient has been started on the Solu-Medrol 30 mg q. 8 hour that will be continued at this time. Discontinue the IV Rocephin. Monitor culture for this patient of the sputum. The patient not noted a candidate for bronchoscopy. The patient would be safe to be done without being intubated. At this time, empirical treatment will be started. All other supportive therapy, plan of management care with the use of bronchodilator, titrate oxygen supplementation, maintain saturation 90% or greater. Also, obtain the patient's arterial blood gas will be ordered and started on the BiPAP with the patient to help stabilize the respiratory failure management as well. Additional treatment changes will be done for the patient based on the progression of the illness. Supportive care, plan of management and treatment. Thanks for allowing me to participate in the care of this patient. [place], [place] REPORT OF CONSULTATION NAME: KAREL FLORES UNIT #: [id number] ROOM: 507 DOCTOR: MISHA CLARK MD BIRTHDATE: [birth year] MISHA GRIMALDO MD CM:CONSTR:REPORT OF CONSULTATION 1311 02/22/17 1552 interface
--- NOTE | ~2017-02-21 | PR ---
[place], [place] PROGRESS NOTE NAME: KAREL FLORES UNIT #: [id number] ROOM: 507 DOCTOR: GALILEO BAILEY MD BIRTHDATE: [birth year] DOS: 02/25/2017 SUBJECTIVE: The patient says her breathing continues to improve. OBJECTIVE: GENERAL APPEARANCE: The patient is alert and oriented x 3, in no visible distress. Moderate obesity. VITAL SIGNS: Blood pressure 153/59, heart rate 85 beats, breathing 20 times per minute, temperature 98.5 degrees Fahrenheit. HEENT AND NECK: Exam within normal limits. CARDIOVASCULAR SYSTEM: Heart rate is regular in rate and rhythm. S1 and S2 normally audible. LUNGS: Decreased breath sounds all over. ABDOMEN: Soft, nontender. No obvious organomegaly. Bowel sounds are present. EXTREMITIES: Without significant cyanosis or edema. IMPRESSION: 1. Acute Pseudomonas aeruginosa, lung infection, pneumonitis, being followed by Dr. Marie. 2. Acute exacerbation of severe underlying chronic obstructive pulmonary disease with hypoxemia and acute over chronic respiratory failure, being treated. 3. Adult failure to thrive. The patient does not want to go back to [facility] and will have to be discharged to home on patient's discretion. 4. Sinus bradycardia, improved. Heart rate of 85 beats per minute. GALILEO BAILEY MD CM:PNTRANS [id number] GALILEO BAILEY MD 02/26/17 1130 interface
--- NOTE | ~2017-02-21 | PR ---
[place], [place] PROGRESS NOTE NAME: [facility]ES [facility] [id number] UNIT #: [id number] ROOM: 507 DOCTOR: RE PLATA MD,MISHA BIRTHDATE: [birth year] DOS: 02/25/2017 PULMONARY PROGRESS NOTE SUBJECTIVE: The patient has been noted comfortable at this time, using oxygen supplementation 6 liters nasal cannula. The patient at rest. Denies symptoms of chest pain or abdominal pain, minimal edema of the ankle was described. OBJECTIVE: VITAL SIGNS: For the patient, which has been recorded shows normal temperature, respiratory rate 18, heart rate 74, blood pressure 163/46. Pulse oxygen saturation, the patient is on 6 liters canula, 98% saturation. HEENT: Sanchez facies secondary to chronic longstanding use of the steroids. CARDIOVASCULAR: S1, S2 audible without any murmurs. LUNGS: Shows stable chronic inspiratory crackles. ABDOMEN: Soft and nontender. EXTREMITIES: Noted without any acute edema. IMPRESSION: 1. The patient with acute Pseudomonas aeruginosa. The patient with chest pain, which has been improving gradually with the history of chronic interstitial lung disease. 2. Resolving [id number] severe hypoxic respiratory failure. PLAN OF TREATMENT: Continuation of the antibiotic of the patient previously. The patient would be considered for [facility] for [facility], occupational therapy and to administer intravenous antibiotic for the next 7-10 days. Other supportive plan of management. The social service consultation was ordered. MISHA GRIMALDO MD CM:PNTRANS 1330 [id number] MISHA PLATA MD 02/25/17 1349 interface
--- NOTE | ~2017-02-21 | PR ---
[place], [place] PROGRESS NOTE [id number] UN[facility] #: [id number] ROOM: 507 DOCTOR: ARDEN BIGGS MD BIRTHDATE: [birth year] DOS: SUBJECTIVE: The patient looks much better this morning, feels better. She did have a fairly good uneventful night. OBJECTIVE: GENERAL: She is awake and alert and oriented, in mild respiratory distress. VITAL SIGNS: Blood pressure is 129/64, pulse of 74, respirations 22, temperature 97.6. LUNGS: Diminished breath sounds, but clear. HEART: Regular. ABDOMEN: Obese, soft, nontender. EXTREMITIES: Without any edema. ASSESSMENT AND PLAN: 1. Acute hypoxic respiratory failure, improving. 2. Pulmonary fibrosis with acute exacerbation. The patient is on IV steroids and breathing treatments. 3. Lactic acidosis, sepsis being ruled out. 4. Adult failure to thrive. The patient can be started on PT, OT. ARDEN BIGGS MD CM:PNTRANS 5 ARDEN BIGGS MD 02/23/17925 interface
--- NOTE | ~2017-02-21 | PR ---
[place], [place] PROGRESS NOTE NAME: [facility] [id number] UNIT #: [id number] ROOM: 507 DOCTOR: RE PLATA MD,MISHA BIRTHDATE: [birth year] DOS: 02/23/2017 PULMONARY PROGRESS NOTE SUBJECTIVE: She has reported reduction in shortness of breath from yesterday. The oxygen requirement also noted decreased. She has been started on intravenous meropenem yesterday for patient as well for suspected gram-negative pneumonia with pseudomonas aeruginosa. The productive cough has been noted intermittently with minimal or no sputum expectoration. OBJECTIVE: VITAL SIGNS: Normal temperature, respiratory rate 20, heart rate 71, blood pressure 136/45. Pulse oxygen saturation on 6 liters nasal cannula 94%, previously high flow nasal cannula 11 liter was 98% saturation. With the BiPAP desaturation oxygen remains 100%. HEENT: No acute change from yesterday. CARDIOVASCULAR: S1, S2 audible. LUNGS: Noted with inspiratory crackles in the lungs bilaterally. There was no wheezing. ABDOMEN: Soft, nontender. EXTREMITIES: Without any edema. LABORATORY DATA: Arterial blood gases to 6 liters of oxygen supplementation nasal cannula, pH of 7.45, pCO2 of 44, pO2 51. The blood culture, no bacterial growth from 02/21/2017. Final culture results were pending. The patient had MRA of the neck for the patient that was ordered by primary care physician completed yesterday for the patient was reported some carotid atherosclerosis. The patient and carotid artery stenosis in the right carotid artery about 50%. Left carotid artery was essentially noted as normal. IMPRESSION: 1. The patient with acute on chronic severe hypoxic respiratory failure superimposed with the patient interstitial pulmonary fibrosis with mediastinal and hilar lymphadenopathy. The patient with acute recurrent pneumonia, pseudomonas aeruginosa had been clinically assess, the patient treated with antibiotics. 2. The patient with history of chronic steroid use as well. 3. General anxiety disorder. 4. Essential hypertension. PLAN OF MANAGEMENT: Continuation of the current antibiotics and the use of the BiPAP that was ordered yesterday. The patient after the ____ arterial blood gas, which shows pH of 7.45, pCO2 of 44, pO2 of 51. Titrate oxygen to maintain saturation 92% or greater. Continue high flow oxygen supplementation with high flow nasal cannula. Continuation of bronchodilators. All other supportive plan of management is previously in progress would be continued. Decrease the Solu-Medrol dose to 30 mg Solu-Medrol daily from today. Supportive care, plan of management and treatments. Usual medical management and other therapies. [place], [place] PROGRESS NOTE NAME: KAREL FLORES UNIT #: [id number] ROOM: [facility] DOCTOR: MISHA CLARK MD BIRTHDATE: [birth year] MISHA GRIMALDO MD CM:PNTRANS 1124 12 MISHA PLATA MD 02/23/171912 interface
[2017-02-21 17:21] VITALS: BP 174/89
[~2017-02-21 17:21] MED LIST changes: +AMILORIDE HYDROC5 MG PO; +BREO ELLIPTA 11 EACH INH; +CARDIZEM60 MG PO; +DULCOLAX10 M1 R; +FLONASE ALLERG9.9 ML NAS; +FOSAMAX70 M1 PO; +MILK OF MA400 MG/5 M PO; +NOVOLOG10 ML IV; +OMEPRAZOLE20 M2 PO; +XANAX0.25 MG PO
[2017-02-21 18:33] LABS: BASO # 0.1 10*3/uL (0.0-0.1); BASO % 0.4 % (0.0-1.0); EOS # 0.1 10*3/uL (0.0-0.4); EOS % 0.6 % (1.0-4.0); HEMATOCRIT 35.8 % (37.0-47.0); HEMOGLOBIN 11.4 g/dl (12.0-16.0); LYMPH # 1.1 10*3/uL (1.3-4.4); LYMPH % 9.1 % (27.0-41.0); MEAN CELL VOLUME 83.3 fl (81.0-99.0); MEAN CORPUSCULAR HGB 26.5 pg (27.0-31.0); MEAN CORPUSCULAR HGB CONC 31.8 g/dl (33.0-37.0); MEAN PLATELET VOLUME 10.3 fl (9.6-12.3); MONO # 0.3 10*3/uL (0.1-1.0); MONO % 2.4 % (3.0-9.0); NEUT # 10.4 10*3/uL (2.3-7.9); NEUT % 86.7 % (47.0-73.0); PLATELET COUNT AUTOMATED 369 10*3/uL (130-400); RED CELL DISTRI WIDTH 16.6 % (0-14.5); WHITE BLOOD COUNT 11.9 10*3/uL (4.8-10.8)
[2017-02-21 18:42] LABS: ACT PARTIAL THROMBO TIME 23.2 SECONDS (20.8-31.5); INTERNATIONAL NORM RATIO 0.9 (2.0-3.5)
[2017-02-21 18:48] LABS: ALBUMIN 3.1 gm/dl (3.1-4.5); ALKALINE PHOSPHATASE 77 U/L (45-117); BUN 11 mg/dl (7-24); CHLORIDE 101 mmol/L (98-107); CREATININE 0.98 mg/dL (0.55-1.02); LIPASE 219 U/L (73-393); POTASSIUM 3.4 mmol/L (3.5-5.1); SGOT/AST 67 IU/L (3-35); SGPT/ALT 61 U/L (12-78); SODIUM 138 mmol/L (136-145); TOTAL PROTEIN 7.6 gm/dL (6.4-8.2); TROPONIN I 0.029 ng/ml (<0.045)
[2017-02-21 19:03] VITALS: BP 174/82
[2017-02-21 20:08] VITALS: BP 170/60
--- NOTE | 2017-02-21 20:14 | NUR ---
REPORT GIVEN TO GEO PALMA
[2017-02-21 21:00] VITALS: BP 170/60
--- NOTE | 2017-02-21 21:26 | NUR ---
Time: A 71 year old F admitted to 5E under services of DR. DIAN COLVIN,ARDEN. Pt. arrived via bed from ER. Chief complaint: CARTER GARCIA
--- NOTE | 2017-02-21 21:27 | NUR ---
DR. BIGGS CALLED ON NEW ADMISSION. NEW ORDERES RECEIVED
--- NOTE | 2017-02-21 21:28 | NUR ---
DR. GRIMALDO MADE AWARE OF CONSULT. HE ORDERED THAT NO MORE LASIX BE GIVEN TO PT.
[2017-02-22] VITALS: BP 159/63
[2017-02-22 08:00] VITALS: BP 156/60
--- NOTE | 2017-02-22 08:30 | NUR ---
Truck Cleaner in to talk to patient. Patient states lives at HOME with HER AND DAUGHTER. There are 0 steps in the home. Physician: DR BIGGS Pharmacy: [facility] [place] Home health services: NONE Patient's level of ADLs: MINIMAL ASSIST Patient has working utilities: YES DME: NE[facility]/O2 FROM [facility] Follow-up physician's appointment after d/c: PREFERS TO MAKE HER OWN APPT Does patient want to access PORTAL?: Discharge plan HOME. ANNMARIE TRIVEDI PT, DC FROM [facility] 2 DAYS BEFORE . WANTS TO RETURN HOME
--- NOTE | 2017-02-22 08:41 | NUR ---
IN TO SEE PATIENT. AWARE OF HYPERGLYCEMIA, LOW POTASSIUM AND PATIENT/FAMILY DESIRE TO BE DNR-ARREST. NO FURTHER ORDERS GIVEN AT THIS TIME.
--- NOTE | 2017-02-22 11:48 | NUR ---
PATIENT IS OFF THE FLOOR FOR A MRA OF THE NECK WITHOUT CONTRAST.
[2017-02-22 12:00] VITALS: BP 150/50
--- NOTE | 2017-02-22 12:15 | NUR ---
PATIENT IS BACK ON THE FLOOR VIA WHEELCHAIR FROM MRI.
[2017-02-22 13:51] LABS: ABG BASE EXCESS 6.4 mmol/L (-2.0-2.0); ABG HCO3 30.6 mmol/l (22-26); ARTERIAL BLOOD GAS PH 7.456 (7.35-7.45)
--- NOTE | 2017-02-22 14:41 | NUR ---
NOTIFIED DR. GRIMALDO OF AB RESULTS. ORDERS GIVEN FOR BIPAP TO BE USED AT 14/8 EXCEPT FOR ON BREAKS OR AT MEALS.
[2017-02-22 16:00] VITALS: BP 152/55
--- NOTE | 2017-02-22 18:47 | NUR ---
PATIENT IS RESTING COMFORTABLY IN BED. PATIENT IS ON THE BIPAP SET AT 14/8 TO HELP WITH RESPIRATORY FAILURE. PATIENT BECOMES EXTREMELY SHORT OF BREATHE ON EXERTION. PATIENT DENIES DIZZINESS, PAIN OR DISCOMFORT UPON STANDING. PATIENT IS MONITORED, HOB ELEVATED, SHAYY HOSE APPLIED. CALL LIGHT WITHIN REACH. SEE ASSESSMENT.
[2017-02-22 20:00] VITALS: BP 145/57
[2017-02-23] VITALS: BP 129/64
[2017-02-23 08:00] VITALS: BP 110/51; BP 136/45
[2017-02-23 12:00] VITALS: BP 156/55
[2017-02-23 16:00] VITALS: BP 138/64
[2017-02-23 20:00] VITALS: BP 151/74
[2017-02-24] VITALS: BP 135/55
[2017-02-24 04:51] VITALS: BP 127/46
--- NOTE | 2017-02-24 04:53 | NUR ---
DR. BIGGS WAS CALLED ON PT'S HR DROPPING TO HIGH 20'S - LOW 30'S. THE PT REPORTED SHE RECIEVES CARDIZEM BID 120MG. SHE HAS BEEN RECIEVING [address] BIGGS ORDERED TO HOLD MED FOR NOW, AND WAIT TO CHANGE THE ORDER.
--- NOTE | 2017-02-24 05:50 | NUR ---
REGARDING PT'S DECREASING HR: AFTER WAKING THE PT UP, HAVING HER MOVE AROUND, AND MOVING HER TO THE RESTROOM, PT'S HR INCREASED TO 50'S - 60'S. SHE HAS BEEN ASYMPTOMATIC, AND NO DISTRESS IS NOTED. TEACHING ON CARDIZEM WAS INITIATED AND NOTIFIED HER HR IS BEING MONITORED. WILL CONINUE TO MONITOR PT.
[2017-02-24 08:00] VITALS: BP 123/44
--- NOTE | 2017-02-24 10:25 | NUR ---
PHYSICAL THERAPY Initial eval completed at bedside 02/24/17 morning. please refer to electronic record for status. Moderate level complexity eval #[id number]. POC to include pt ed; ther ex; balance/gait training. Note even with O2 on at 8L for 30' gait, desatted to 60% before recovery to 80's. Tequila Thomas, PT
[2017-02-24 12:00] VITALS: BP 152/58
--- NOTE | 2017-02-24 14:03 | NUR ---
PRANAY FROM [facility] WOULD LIKE NOTIFIED ABOUT PATIENTS DISCHARGE PLAN. CALL HER AT [phone]
--- NOTE | 2017-02-24 15:06 | NUR ---
PATIENT IS COMFORTABLE, WITHOUT ANY SIGNS OF DISTRESS. FAMILY IS AT BEDSIDE.
[2017-02-24 16:00] VITALS: BP 151/60
--- NOTE | 2017-02-24 19:38 | NUR ---
PATIENT RESTING IN BED WITH FAMILY AT THE BEDSIDE. PATIENT IS COMFORTABLE RECEIVING 6LPM HIGH FLOW NC AND DENIES SOB AT THIS TIME. PATIENT VERBALIZES DISCOMFORT ON HER COCCYX AND REDDENED AREA WAS VISIBLE. AREA IS BLANCHEABLE AND HYDROGUARD LOTION APPLIED AND PATIENT REPOSITIONED ON THEIR SIDE USING THE WEDGE. PATIENT DENIES ANY PAIN UPON ASSESSMENT. CALL LIGHT IS WITHIN REACH, HOB ELEVATED. SEE ASSESSMENT.
[2017-02-24 20:00] VITALS: BP 158/63
[2017-02-25] VITALS: BP 153/48
[2017-02-25 00:51] VITALS: BP 148/66
--- NOTE | 2017-02-25 02:22 | NUR ---
PATIENT IS RESTING IN BED ON THEIR LEFT SIDE. PATIENT IS WEARING THE BIPAP AT 12/6 AND TOLERATING IT WELL. PATIENT DENIES ANY DISCOMFORT, PAIN OR SOB AT THIS TIME. PATIENTS REPORTS HAVING A COUGH, BUT HAS BEEN UNABLE TO GET ANYTHING UP SINCE YESTERDAY. PATIENT IS A&OX3 AND BECOMES DYSPNIC WITH MINIMAL EXERTION. PATIENT IS MONITORED, HOB ELEVATED. CALL LIGHT WITHIN REACH.
--- NOTE | 2017-02-25 07:45 | NUR ---
PATIENT TAKEN OFF OF BI-PAP, PLACED ON HIGH FLOW NASAL CANNULA AT 6 L/M.
[2017-02-25 08:00] VITALS: BP 138/85
[2017-02-25 12:00] VITALS: BP 163/46
--- NOTE | 2017-02-25 12:51 | NUR ---
STAGE 2 WOUNDS TO BILATERAL BUTTOCKS . PT REFUSED TO HAVE WOUND PICS TAKEN
[2017-02-25 16:00] VITALS: BP 153/59
--- NOTE | 2017-02-25 16:08 | NUR ---
Shift chart check completed.
[2017-02-25 20:00] VITALS: BP 159/57
--- NOTE | 2017-02-25 22:08 | NUR ---
PATIENT GIVEN XANAX PER PT REQUEST TO HELP THE PATIENT RELAX AND SLEEP. WILL CONTINUE TO MONITOR AND REASSESS.
--- NOTE | 2017-02-25 22:43 | NUR ---
PATIENT RESTING COMFORTABLY IN BED. PATIENT DENIES ANY PAIN, DISCOMFORT OR SOB UPON ASSESSMENT. PATIENT IS ON 6LPM HIGH FLOW NASAL CANNULA. PATIENT IS A&OX3 AND AMBULATORY WITH ASSIST TO BSC. PATIENT BECOMES DYSPNIC WITH MINIMAL EXERTION. PATIENT HAS NO FURTHER REQUESTS AT THIS TIME. CALL LIGHT IS WITHIN REACH. SEE ASSESSMENT.
--- NOTE | 2017-02-25 23:50 | NUR ---
PRN MEDICATION EFFECTIVE. PATIENT RESTING PEACEFULLY IN BED. WILL CONTINUE TO MONITOR. CALL LIGHT IS WITHIN REACH .
[2017-02-26] VITALS: BP 144/47
--- NOTE | 2017-02-26 06:35 | NUR ---
PATIENT SLEPT THROUGHOUT THE NIGHT WITH MINIMAL INTERRUPTIONS ON THE BIPAP. PATIENT IS NOW ON 6LPM HIGH FLOW NC AND DENIES SOB UPON ASSESSMENT. PATIENT DENIES ANY PAIN OR DISCOMFORT THROUGHOUT SHIFT. PATIENT HAS A WOUND ON EACH BUTTOCKS THE WAS CLEANSED AND DRESSED YESTERDAY. PATIENT IS MONITORED, A&OX3 AND BEDFAST. PATIENT BECOMES DYSPNIC WITH MINIMAL EXERTION. HOB ELEVATED. CALL LIGHT WITHIN REACH.
[2017-02-26 08:00] VITALS: BP 147/55
--- NOTE | 2017-02-26 08:00 | NUR ---
HOB ELEVATED, EASY RESPIRATIONS WITH SKIN W/D. PT STATES "FEELING BETTER" NASAL O2 WITH SPO2 @100%. REINFORCED INSTRUCTIONS TO USE CALL LIGHT SYSTEM FOR ASSISTANCE, PT VOICES UNDERSTANDING. SEE SHIFT ASSESSMENT.
[2017-02-26 12:00] VITALS: BP 149/58
--- NOTE | 2017-02-26 12:33 | NUR ---
OOB TO CHAIR, CALL LIGHT SYSTEM WITHIN REACH.
[2017-02-26 16:00] VITALS: BP 138/60
--- NOTE | 2017-02-26 16:04 | NUR ---
DR BAILEY IN TO SEE PT.
--- NOTE | 2017-02-26 18:16 | NUR ---
RESTING WITH DTR AT BEDSIDE, NO OBVIOUS CGHANGES NOTED THIS SHFT.
[2017-02-26 20:00] VITALS: BP 158/52
--- NOTE | 2017-02-26 22:41 | NUR ---
PATIENT REEQUESTED XANAX, GIVEN PER PRN ORDER AT [id number].
--- NOTE | 2017-02-26 23:00 | NUR ---
PATIENT RESTING IN BED, PATIENT STATES XANAX EFFECTIVE, HAS CALMED.
--- NOTE | 2017-02-26 23:11 | NUR ---
PT PLACED ON BIPAP POST AEROSOL TX
[2017-02-27] VITALS: BP 156/50
--- NOTE | 2017-02-27 07:03 | NUR ---
PATIENT WITH COARSE CRACKLES IN LUNGS, NO EDEMA NOTED. PATIENT HAD SMALL BM YESTERDAY. DRESSING INTACT ON BUTTOCKS. BIPAP ON MOSTOF THE NIGHT. THIS AM RESPIRATORY STATED IS 93% ON 6 LITERS O2.
[2017-02-27 08:00] VITALS: BP 172/53
--- NOTE | 2017-02-27 09:09 | NUR ---
In to see patient to discuss snf for IV ATB. Patient agreed, presented list of facilities, patient stated she has been to [facility] in the past and would like to return there. Faxed referral to [facility], 3 night stay completed, waiting on acceptance.
--- NOTE | 2017-02-27 11:14 | NUR ---
PHYSICAL THERAPY Mrs Crowder seen this AM 1:1 for her therapy session, Pt on 6 L o2 at this time and gait with portable o2 at 6 L. Transfer sit/stand MOD A X 1 up on wheeled walker standing balance MIN A X 1. GAit total 45' X 1, with W/W and MOD A X 1, cueing for gait, walker safety and back sitting up in her bedside chair. End with act EX to bilateral LE of marching, LAQ's, ankle pumps X 20 reps each with cueing for each Ex. AYANA GOYAL VAULT ATTENDANT.
[2017-02-27 11:20] VITALS: BP 156/65
--- NOTE | 2017-02-27 11:30 | NUR ---
KAREL FLORES [id number] Please refer to the physician's history and physical for past medical history, comorbid conditions, and allergies. Diagnosis: COPD W ACUTE EXACERBATION PULMONARY EDEMA Sincere Score: 16,AT RISK WOUND DESCRIPTIONS: Location of the wound: left buttocks Type of wound: stage 2 Thickness: Partial Size: 0.5cm x 0.3cm x 0.1cm Tunneling: none Undermining: none Sinus Tract: none Presence of Exudate: Serosanguineous Amount: Light Color: Red Odor: None Periwound Skin Appearance: Normal Wound edges: approximated Pain (associated with wound): none at time of assessment How does patient state this happened? pt stated she got these two days ago here at the hospital Location of the wound: right buttocks Type of wound: stage 2 Thickness: Partial Size: 1.0cm x 0.5cm x 0.1cm Tunneling: none Undermining: none Sinus Tract: none Presence of Exudate: Serosanguineous Amount: Light Color: red Odor: None Periwound Skin Appearance: Normal Wound edges: approximated Pain (associated with wound): none at time of assessment How does patient state this happened? pt stated it happened at the hospital two days ago. Surface the patient is resting on: Isoflex SKIN PREVENTION RECOMMENDATION: 1. Pressure redistribution support surface as appropriate 2. Elevate heels 3. Remove boots/TEDS every shift and reapply 4. Head of bed 30 degrees as tolerated 5. Assess nutrition and hydration 6. Manage moisture 7. Avoid the use of containment devices while in bed 8. Use absorptive products on surfaces limit layers of linens on bed 9. Turn and reposition every 1-2 hours in bed and every 1 hour in chair as tolerated 10. Weight shifts every 15 minutes while up in chair 11. Offloading with pillows or device to keep heels elevated off bed 12. Monitor skin at least every shift 13. Inspect under medical devices twice a day WOUND TREATMENT RECOMMENDATIONS: Continue current wound care orders. Wheelchair cushion while OOB
[2017-02-27 12:00] VITALS: BP 156/65
--- NOTE | 2017-02-27 13:19 | NUR ---
Patient accepted to [facility] and can go when medically stable for discharge
--- NOTE | 2017-02-27 14:29 | NUR ---
DR. BIGGS NOTIFIED OF VERIFIED PLACEMENT OF PICC LINE, AND SHE SAID TO USE IT.
[2017-02-27 16:00] VITALS: BP 159/56
[2017-02-27 20:00] VITALS: BP 155/52
--- NOTE | 2017-02-27 21:37 | NUR ---
PATIENT MEDICATED WITH PRN XANAX ORDERED FOR C/O ANXIETY.
[2017-02-28] VITALS: BP 165/55
--- NOTE | 2017-02-28 01:32 | NUR ---
SLEEPING, BIPAP ON, RESPIRATIONS EASY/REG. CALL LIGHT IN REACH. WILL MONITOR.
--- NOTE | 2017-02-28 06:45 | NUR ---
MEDICATED WITH PRN TYLENOL ORDERED FOR C/O NECK PAIN RATED A 6/10.
[2017-02-28 08:00] VITALS: BP 165/50
[2017-02-28] MEDS ORDERED: MEROPENEM1 G1 IV (09:06)
--- NOTE | 2017-02-28 10:39 | NUR ---
KAREL FLORES Elsie [id number] Please refer to the physician's history and physical for past medical history, comorbid conditions, and allergies. Diagnosis: COPD W ACUTE EXACERBATION PULMONARY EDEMA Sincere Score: 16,AT RISK WOUND DESCRIPTIONS: Location of the wound: left forearm Type of wound: skin tear Thickness: Partial Size: 0.2cm x 1.6cm x 0.1cm Tunneling: none Undermining: none Sinus Tract: none Presence of Exudate: Serosanguineous Amount: Light Color: Red Odor: None Periwound Skin Appearance: Normal Wound edges: approximated Pain (associated with wound): none at time of assessment How does patient state this happened? pt stated it happened yesterday when tape was removed. Surface the patient is resting on: Isoflex SKIN PREVENTION RECOMMENDATION: 1. Pressure redistribution support surface as appropriate 2. Elevate heels 3. Remove boots/TEDS every shift and reapply 4. Head of bed 30 degrees as tolerated 5. Assess nutrition and hydration 6. Manage moisture 7. Avoid the use of containment devices while in bed 8. Use absorptive products on surfaces limit layers of linens on bed 9. Turn and reposition every 1-2 hours in bed and every 1 hour in chair as tolerated 10. Weight shifts every 15 minutes while up in chair 11. Offloading with pillows or device to keep heels elevated off bed 12. Monitor skin at least every shift 13. Inspect under medical devices twice a day WOUND TREATMENT RECOMMENDATIONS: Skin tear guidelines nss, sureprep, versatel, hydrogel, optifoam gentle.
--- NOTE | 2017-02-28 10:47 | NUR ---
Patient is discharged to [facility], transportation scheduled for 11:[address] [facility]. NH and nursing notified.
--- NOTE | 2017-02-28 11:17 | NUR ---
PHYSICAL THERAPY Pt was seen this AM 1:1 for her therapy session. Pt on 6 L o2, gait with portable o2 at 6 L. Transfer supine/sit, sitting balance MIN A X 1, Sit/stand and standing balance with wheeled walker MIN A X 1. Gait with standard walker 42' X 1, and just a little SOB with this but wanting to quit. Pt back supine in bed call light and phone. AYANA GOYAL MOLD REPAIRER.
--- NOTE | 2017-02-28 11:23 | NUR ---
NURSE TO NURSE REPORT WAS GIVEN TO STAFF AT [facility].
--- NOTE | 2017-02-28 11:44 | NUR ---
Discharge instructions reviewed with patient/family. Patient receptive and verbalizes understanding. Follow-up care arranged. Written instructions given to patient/family. Patient left the unit with all of her personal belongings in the care of [employer]. BRUCE PONCE
--- NOTE | 2017-02-28 15:11 | NUR ---
PHYSICAL THERAPY CO-SIGN I approve of the Phyical Therapy notes written above. LEA HUDSON PT
== END 2017-02-28 11:44 | disposition other institution (70) | DRG 189 ==
LOC: ED 17:21 → 5E 19:24 → EDHOLD 19:24 → 5E 19:51
PROVIDERS: Internal Medicine Critical Care Medicine; Nurse Practitioner Family; ADMIT Internal Medicine
PROC: 5A09357 Assistance with Respiratory Ventilation, Less than 24 Consecutive Hours, Continuous Positive Airway Pressure (ICD-10-PCS; principal; 2017-02-23)
PROC: 5A09357 Assistance with Respiratory Ventilation, Less than 24 Consecutive Hours, Continuous Positive Airway Pressure (ICD-10-PCS; 2017-02-24)
PROC: 5A09357 Assistance with Respiratory Ventilation, Less than 24 Consecutive Hours, Continuous Positive Airway Pressure (ICD-10-PCS; 2017-02-25)
PROC: 02HV33Z Insertion of Infusion Device into Superior Vena Cava, Percutaneous Approach (ICD-10-PCS; 2017-02-27)
DX: J96.21 Acute and chronic respiratory failure with hypoxia (principal); J15.1 Pneumonia due to Pseudomonas; E87.2 Acidosis; J81.1 Chronic pulmonary edema; J84.10 Pulmonary fibrosis, unspecified; J44.0 Chronic obstructive pulmonary disease with (acute) lower respiratory infection; J44.1 Chronic obstructive pulmonary disease with (acute) exacerbation; F41.1 Generalized anxiety disorder; R62.7 Adult failure to thrive; E66.9 Obesity, unspecified; F19.90 Other psychoactive substance use, unspecified, uncomplicated; E78.5 Hyperlipidemia, unspecified; M81.0 Age-related osteoporosis without current pathological fracture; Z96.1 Presence of intraocular lens; R59.1 Generalized enlarged lymph nodes; R53.81 Other malaise; Z68.24 Body mass index [BMI] 24.0-24.9, adult; Z86.73 Personal history of transient ischemic attack (TIA), and cerebral infarction without residual deficits; Z98.42 Cataract extraction status, left eye; Z98.41 Cataract extraction status, right eye; Z88.8 Allergy status to other drugs, medicaments and biological substances; Z79.899 Other long term (current) drug therapy; Z90.49 Acquired absence of other specified parts of digestive tract; Z90.710 Acquired absence of both cervix and uterus

== ENCOUNTER 2017-03-05 15:55 | Inpatient (IN) | payer MEDICARE, OTHER ==
[2017-03-05] VITALS (7 sets, daily range): BP systolic 156–183; BP diastolic 54–75
[~2017-03-05] VITALS: Ht 157.4 cm; Wt 61.7 kg
--- NOTE | ~2017-03-05 | PR ---
[place], [place] PROGRESS NOTE [id number] UN[facility] #: [id number] ROOM: 426 DOCTOR: ARDEN BIGGS MD BIRTHDATE: [birth year] DOS: 03/08/2017 SUBJECTIVE: The patient is doing fine without any complaints. This morning, she states that she feels much better than yesterday. OBJECTIVE: VITAL SIGNS: Blood pressure is 137/57, pulse of 75, respirations 20, temperature 98.0. LUNGS: Diminished breath sounds, very few fine wheezes heard. HEART: Regular. ABDOMEN: Obese. EXTREMITIES: No edema. LABORATORY DATA: This morning shows a white cell count which is normal at 7.0, hemoglobin 9.0, hematocrit 27.0, platelets 263. Comprehensive glucose 186, BUN 14, creatinine 0.91, sodium 136, potassium 5.2, chloride 94, bicarbonate 39. Blood culture shows no bacterial growth. ASSESSMENT AND PLAN: 1. Acute exacerbation of chronic obstructive pulmonary disease, with acute hypoxic respiratory failure, stable, on current dose of treatment plan. 2. Massive pulmonary fibrosis with possibility of underlying pneumonia, on IV meropenem and Bactrim. 3. Adult failure to thrive. The patient is being assessed for discharge to [facility]. The plan is to make arrangements for her to be discharged in case they approve. ARDEN BIGGS MD CM:PNTRANS [id number] ARDEN BIGGS MD 03/08/17 1149 interface
--- NOTE | ~2017-03-05 | EKG ---
[place], [place] ELECTROCARDIOGRAM REPORT NAME: KAREL FLORES UNIT #: [id number] ROOM: 426 DOCTOR: RE PLATA MD,MISHA BIRTHDATE: [birth year] DOS: 03/05/2017 Electrocardiogram was done on 03/05/2017 at 4:31 p.m. Normal sinus rhythm was noted. Heart rate 94 beats per minute. 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 MISHA GRIMALDO MD CM:EKGRPT:ELECTROCARDIOGRAM REPORT [id number] 1500 MISHA PLATA MD
--- NOTE | ~2017-03-05 | DS ---
[place], [place] DISCHARGE SUMMARY NAME: KAREL FLORES [facility] #: [id number] UNIT #: [id number] ROOM: 426 DOCTOR: ARDEN BIGGS MD BIRTHDATE: [birth year] DOS: 03/08/2017 DIAGNOSES: 1. Recent pseudomonas pneumonia. 2. Acute hypoxic respiratory failure. 3. Chronic interstitial lung disease with pulmonary fibrosis. 4. Benign hypertension. 5. Postmenopausal osteoporosis. 6. Mixed hyperlipidemia. 7. History of transient ischemic attack. 8. History of GI bleed. 9. Adult failure to thrive. 10. Steroid-induced hyperglycemia. 11. Possibility of underlying infectious process in the lung, difficult to identify it with a significant bronchiectasis and fibrosis on the CT. 12. History of compression deformity of T6. HOSPITAL COURSE: The patient is 71 years old who comes in with complaints of severe hypoxia with her saturation in the 60s. After being evaluated in the ER, she was admitted. IV steroids, breathing treatments, and antibiotics were started. The patient has improved remarkably. Discussed the condition with Dr. Marie in detail who was consulted. He feels that the patient may have underlying pneumonia. A CT of the chest confirmed significant fibrosis and it was difficult to see any pneumonia, but there is a possibility that she may have underlying infectious process and he has placed the patient on Bactrim with possibility of PCP. The patient has improved clinically. White cell count is normal. She has not had any fevers. She has underlying failure to thrive and would benefit from continued PT, OT. She does have mild hypokalemia this morning, potassium is 5.2. This could be from Bactrim that she is on. Dr. Marie is aware of it. The plan is to discharge to [facility] today. DISCHARGE MEDICATIONS: 1. Septra 1 tablet p.o. twice a day. 2. Meropenem 1 g IV q. 8. 3. Breo Ellipta 1 inhalation daily. 4. DuoNeb q. 4. 5. Omeprazole 20 b.i.d. 6. Milk of mag 400 mg daily p.r.n. for constipation. 7. Fosamax 70 once weekly. 8. Xanax 0.25 q. 8 p.r.n. for anxiety. 9. Diltiazem 120 b.i.d. 10. Atorvastatin 20 daily. 11. Plavix 75 daily. 12. Methylprednisolone 40 mg IV q. 12. 13. tablets b.i.d. [place], [place] DISCHARGE SUMMARY NAME: KAREL FLORES UNIT #: [id number] ROOM: 426 DOCTOR: ARDEN BIGGS MD BIRTHDATE: [birth year] ARDEN BIGGS MD CM:DISCHARG ARDEN BIGGS MD 03/08/17 0934 interface
--- NOTE | ~2017-03-05 | PR ---
[place], [place] PROGRESS NOTE [id number] UNIT #: [id number] ROOM: 426 DOCTOR: ARDEN BIGGS MD BIRTHDATE: [birth year] DOS: SUBJECTIVE: The patient is doing much better, does not have any complaints today. PHYSICAL EXAMINATION: VITAL SIGNS: Blood pressure is 149/52, pulse of 67, respirations 20, temperature 97.6. LUNGS: Clear. HEART: Regular. ABDOMEN: Obese, soft. EXTREMITIES: Without any edema. LABORATORY DATA: Shows glucose of 185, BUN 11, creatinine 0.89, sodium 135, potassium 4.4, chloride 94, bicarbonate 35. WBC count is 4.6, hemoglobin 9.8, platelets 275. CT of the chest shows pulmonary fibrosis. No pneumonia was seen. ASSESSMENT AND PLAN: 1. This is a patient who presents with extensive pulmonary fibrosis with a possibility of underlying infectious process. Discussed with Dr. Marie in detail. Plan was to place on Bactrim, continue meropenem. 2. Adult failure to thrive. Discussed with the patient in detail. I advised her to consider [facility]. Social service will be consulted for that. The patient's prognosis remains poor and guarded. It is most likely is a natural progression of the disease and the patient may be an ideal candidate for hospice if there is no improvement made. The patient is advised to go to [facility] month and if she continues to worsen, she will consider hospice at that time. 3. Steroid-induced hyperglycemia. Blood sugars were noted. We will not increase any medications right now. 4. Benign hypertension, controlled. Discussed with the patient in detail. ARDEN BIGGS MD CM:PNTRANS [id number] ARDEN BIGGS MD 03/07/17 1024 interface
--- NOTE | ~2017-03-05 | PR ---
[place], [place] PROGRESS NOTE NAME: KAREL FLORES UNIT #: [id number] ROOM: 426 DOCTOR: MISHA CLARK MD BIRTHDATE: [birth year] DOS: 03/07/2017 SUBJECTIVE: The patient would like to be continue ____ at this time and was willing to go to the long-term acute care facility for further medical management. However, no invasive procedure was planned to be done at this time. The patient does understand her overall poor prognosis and decreased quality of life. The patient denies symptoms of her chest pain or hemoptysis. OBJECTIVE: VITAL SIGNS: Normal temperature, respiratory rate 20, heart rate 80, blood pressure 136/50. Pulse oxygen saturation for the patient on 5 liter nasal cannula 94% saturation. HEAD, EARS, EYES, NOSE AND THROAT: No acute change. NECK: Supple. CARDIOVASCULAR: S1, S2 is audible. LUNGS: The patient was noted without any crackles. Inspiratory crackles. ABDOMEN: Soft, obese, nontender. EXTREMITIES: Without any acute edema. LABORATORY DATA: The patient's CBC this morning, WBC count 4.6, hemoglobin 9.8. Hematocrit 30.7, platelet count of 275,000. The LV is noted elevated at 358. CMP: CO2 of 35, chloride of 94, normal BUN and creatinine. Potassium normal. Blood culture, no bacterial growths. IMPRESSION: The patient who has been noted with acute on chronic severe hypoxic respiratory failure, currently treated empirically for Pseudomonas aeruginosa as well as pneumocystis infection. Sputum induction for the patient was ordered for the pneumocystis, for assessment of pneumocystis. Even if it were noted negative. PLAN OF TREATMENT: Patient's diagnosis still strongly considered. The patient not noted a candidate for BAL specimen, which would be ideal for the patient to rule out the pneumocystis infection. In the meantime, the patient will be continued on current therapy, plan of management and other care. Usual treatment. We will order the support and other plan of management. The patient consultation was noted, probably for the long-term acute care facility placement. [place], [place] PROGRESS NOTE NAME: KAREL FLORES UNIT #: [id number] ROOM: 426 DOCTOR: MISHA CLARK MD BIRTHDATE: [birth year] MISHA GRIMALDO MD CM:THEA [phone] [id number] MISHA PLATA MD 03/07/17 174 interface
--- NOTE | ~2017-03-05 | WRIGHTHP ---
[place], [place] PATIENT HISTORY AND PHYSICAL EXAM NAME: KAREL FLORES [facility] #: [id number] UNIT #: [id number] ROOM: 426 DOCTOR: ARDEN BIGGS MD BIRTHDATE: [birth year] DOS: 03/06/2017 HISTORY OF PRESENT ILLNESS: This patient is 71 years old, very well known to us, was sent to a local [facility]dc recently for IV antibiotics. While there, the family states the patient continued to get worse with increasing shortness of breath and dropping saturations and they brought her to the Emergency Room. They the patient's care was poor at the fdc. The patient's saturation was 60% on 8 liters. The patient states that she was not able to use the CPAP machine as prescribed at the fdc either. Denies having any fever, chills, chest pains, or palpitations. Did complain of increased leg edema. PAST MEDICAL HISTORY: Significant for: 1. Pseudomonas pneumonia. 2. Chronic interstitial lung disease with pulmonary fibrosis. 3. Benign hypertension. 4. Postmenopausal osteoporosis. 5. Mixed hyperlipidemia. 6. Chronic respiratory failure requiring high flow O2. 7. Transient ischemic attack by history. 8. History of GI bleed. MEDICATIONS: She is on are Plavix, atorvastatin, Cardizem, Xanax, Breo Ellipta, alendronate, omeprazole, breathing treatments, mag oxide. SOCIAL HISTORY: Nonsmoker, does not use any alcohol. PHYSICAL EXAMINATION: GENERAL: The patient is awake and alert and oriented. VITAL SIGNS: Graphic trend shows a blood pressure of 165/59, pulse of 82, respirations 18, temperature 98.2. LUNGS: Diminished breath sounds, very poor air entry, a few scattered wheezes. HEART: Regular. ABDOMEN: Obese, soft. EXTREMITIES: Without any edema. ASSESSMENT AND PLAN: The patient with pulmonary fibrosis, interstitial lung disease with probably another exacerbation resulting in hypoxemia and acute hypoxic respiratory failure requiring admission. The patient's saturations are very well controlled here. She has had multiple admissions to the hospital and has end-stage chronic respiratory failure, may benefit from ventilator as an outpatient. We will ask respiratory therapy as well as case management to consider that. Dr. Marie has been consulted. 2. Recent pseudomonas pneumonia. Continue meropenem for right now. CT of the chest will be ordered. 3. Steroid-induced , check blood sugars. [place], [place] PATIENT HISTORY AND PHYSICAL EXAM NAME: KAREL FLORES UNIT #: [id number] ROOM: 426 DOCTOR: ARDEN BIGGS MD BIRTHDATE: [birth year] ARDEN BIGGS MD CM:HISPHYS:PATIENT HISTORY AND PHYSICAL EXAMINATION 9 4 ARDEN BIGGS MD 03/06/17924 interface
--- NOTE | ~2017-03-05 | CON ---
[place], [place] REPORT OF CONSULTATION NAME: KAREL FLORES [facility] #: [id number] UNIT #: [id number] ROOM: 426 DOCTOR: RE PLATA MD,MISHA BIRTHDATE: [birth year] DOS: 03/06/2017 CONSULTATION REQUESTED BY: Alana Paerson MD REASON FOR CONSULTATION: Assess the patient for acute progressive respiratory failure. HISTORY OF PRESENT ILLNESS: A 71-year-old white female patient who has been admitted to the hospital and later on transferred to [facility]. The patient remained in a nursing facility receiving intravenous antibiotic for the management of a suspected acute Pseudomonas aeruginosa pneumonia. The patient has been doing very well until the last couple of days and noted with increased shortness of breath occurring with exertion and at rest. The oxygen requirement has been also increased. She was sent to the hospital Emergency Room on 03/05/2017 where she has been assessed and in wake of progressive worsening of the respiratory failure, currently hospitalized the patient to a telemetry floor. She does complain of shortness breath, which remains persistent, occurs with minimal exertion, sometime at rest. She does have symptoms of cough at times that was noted nonproductive. She denies symptoms of hemoptysis. There were no symptoms of chest pain. The patient denies any symptoms of wheezing. REVIEW OF SYSTEMS: CONSTITUTIONAL: Fatigue and tiredness noted without any symptoms of fever or chills. EYES: Denies any burning, redness, or tenderness. EARS, NOSE, AND THROAT: No sore throat, hoarseness, otalgia, postnasal drainage. CARDIOVASCULAR: Denies angina pain, edema or pain of the lower extremity. GASTROINTESTINAL: Denies any dysphagia, nausea, vomiting, diarrhea, abdominal pain, hematemesis, melena, hematochezia. No abnormal weight loss. GENITOURINARY SYMPTOMS: The patient denies dysuria, suprapubic pain, hematuria. MUSCULOSKELETAL: No acute joint pain, redness, tenderness. SKIN: No lesions or rashes. Intermittent bruising of the skin noted chronic related to past use of the corticosteroids. CENTRAL NERVOUS SYSTEM: No dizziness, headache, diplopia, syncopal episodes. Remaining systems were reviewed with the patient, they were noted all negative. PAST MEDICAL HISTORY: 1. 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 2. Mediastinal hilar lymphadenopathy. The patient's etiology unclear with suspected diagnosis of chronic hypersensitivity pneumonitis versus sarcoidosis or other conditions, possibility of malignancy as well. 3. Chronic hypoxic respiratory failure, use of oxygen, usually 6 liter nasal cannula. 4. Past corticosteroid use, which has been tapered off completely since the last hospitalization. 5. Past GI bleeding, iron deficiency anemia. [place], [place] REPORT OF CONSULTATION NAME: KAREL FLORES UNIT #: [id number] ROOM: 426 DOCTOR: MISHA CLARK MD BIRTHDATE: [birth year] 6. Hyperlipidemia. 7. Osteoporosis. PAST SURGICAL HISTORY: 1. Cholecystectomy. 2. Bilateral cataract extraction and lens implantation. 3. Previous intubation and mechanical ventilation in 11/2016. 4. Therapeutic bronchoscopy while on the ventilator in 11/2016. SOCIAL HISTORY: The patient is , has 4 children. Lives at home prior to the hospitalization. She has been known with tobacco use with half a pack of cigarettes a day from teenager until 2010. Denies any occupation related pulmonary exposure. FAMILY HISTORY: Unknown. MEDICATIONS: Current administered medication today were noted as use of Fosamax, omeprazole, Lipitor, Cardizem, Plavix, Solu-Medrol 40 mg b.i.d., DuoNeb, Xanax, and meropenem. ALLERGIES: ALLERGY TO THE CARAFATE. PHYSICAL EXAMINATION: GENERAL: This is a 71-year-old female who has been noted currently awake and alert without any acute major distress, using oxygen supplementation high flow nasal cannula up to 10 or 11 liters this morning. The height for the patient recorded by the nursing staff as 5 feet 2 inches, weight of 61 kg. BMI 24.8. VITAL SIGNS: For the patient shows temperature 99.8 degree Fahrenheit to normal temperature, respiratory rate of 20-28, heart rate of 95-91, blood pressure 170/50 to 161/64. Pulse oxygen saturation on 50% BiPAP use was 90%, later on 12 liter nasal cannula 92% saturation. HEENT AND NECK: ____ previous use of steroids. Neck is supple. Head atraumatic. Eyes nonicteric. There was no discharge noted. CARDIOVASCULAR: S1, S2 audible. LUNGS: Chronic inspiratory crackles are noted without any wheezing. ABDOMEN: Soft with [id number] obesity. Bowel sounds present. CENTRAL NERVOUS SYSTEM: Cranial nerves 2-12 intact. MUSCULOSKELETAL: No deformities. SKIN: No lesions or rashes. Chronic bruising of the upper and lower extremities of the skin was noted. CENTRAL NERVOUS SYSTEM: Cranial nerves 2-12 intact. No focal deficit. MUSCULOSKELETAL: No deformities. LABORATORY DATA: The arterial blood gas on 03/05/2017, pH of 7.45, pCO2 of 47-52. Lactic acid 0.7. CBC on 03/05/2017, WBC count of 14.7, hemoglobin 10, hematocrit 31.5, platelet count 278,000. PT and PTT of the patient yesterday on admission normal. CMP: BUN normal, creatinine was normal. CO2 of 34. Troponin and LFTs were normal. Chest x-ray showed diffuse pulmonary infiltration previously noted. CT scan of the chest, which was done without contrast ordered by Dr. Alana Pearson was noted with persistent lymph node [place], [place] REPORT OF CONSULTATION NAME: KAREL FLORES UNIT #: [id number] ROOM: 426 [facility] [birth year] enlargement with honeycombing of the lungs, which are noted in the subpleural distribution in the upper and the lower lungs. Traction bronchiectasis. Significant to current exacerbation noted in the lungs bilaterally. The patient was also noted with compression deformity of T6, inferior plate of T7 and T9 as well. IMPRESSION: 1. The patient will be currently admitted to the hospital for acute on chronic severe hypoxic respiratory failure, which has been noted progressive. Empirical treatment of meropenem for this patient, which has been administered to the patient until the current hospitalization for the past 4-5 days. 2. Current interstitial infiltration, superimposed with patient's worsening respiratory status with possible consideration of superimposed additional infection such as pneumocystis infection. The patient has been given the prolonged steroid dose previously until about a week ago. 3. Idiopathic nonspecific interstitial pneumonitis for lymphadenopathy. Exact etiology remains unclear with various differentials has been considered, but the workup not done for this patient because of current frail status, inability to undergo all the invasive workup needed including the bronchoscopy as well as possible consideration of lung biopsy for more definitive diagnosis. 4. Debility. 5. Anxiety disorder as well. PLAN OF MANAGEMENT: Workup for the pneumocystis. The patient will be ordered with sputum induction minimal at this time. The patient will be started empirically on high dose of ____ sulfate as Bactrim-DS two twice a day. Solu-Medrol has already started. The LDH level for the patient will be ordered as well. Use of the BiPAP will be continued to maintain a current oxygen saturation 90% greater as tolerated and other time oxygen supplementation. Detailed discussion will be needed in conjunction with the family members about the further management of this patient since the patient has been noted essentially very frail status, failed to respond to treatment, which has been previously provided with multiple hospitalizations. The patient wished not to go for any further invasive workup for more definitive diagnosis. Certainly, she would be advised for the hospice care. This has been discussed briefly with the patient today at the bedside with the patient in one of her daughters. I have also discussed the case with Dr. Alana Pearson. Serum LDH for the patient was also ordered, other supportive therapy, plan of management. Continue current Solu-Medrol treatment as well. Additional treatment changes to be made for the patient based on the progression of the illness. Thank you for allowing me to participate in the care of this patient. [place], [place] REPORT OF CONSULTATION NAME: KAREL FLORES UNIT #: [id number] ROOM: 426 DOCTOR: MISHA CLARK MD BIRTHDATE: [birth year] MISHA GRIMALDO MD CM:CONSTR:REPORT OF CONSULTATION 1421 03/07/17 0221 interface
--- NOTE | ~2017-03-05 | PR ---
[place], [place] PROGRESS NOTE NAME: KAREL FLORES UNIT #: [id number] ROOM: 426 DOCTOR: RE PLATA MD,MISHA BIRTHDATE: [birth year] DOS: 03/08/2017 SUBJECTIVE: She has not been noted any ongoing acute complaints at this time. Shortness of breath has been improving at this time. She has been ambulating in the room. Still noted general weakness and fatigue. OBJECTIVE: VITAL SIGNS: Normal temperature, respiratory rate 20, heart rate 87, blood pressure 146/50. The pulse oxygen saturation 10 liter nasal cannula 98% saturation. HEENT: Examination shows no acute change. NECK: Supple. CARDIOVASCULAR: S1, S2 audible. LUNGS: The patient was noted with stable chronic inspiratory crackles, no wheezing. ABDOMEN: Soft, nontender. LABORATORY DATA: The patient's CBC this morning, hemoglobin 9, hematocrit 27.9, platelet count was normal. Pneumocystis stain sputum induction was reported as negative. BMP of the patient, potassium mildly elevated at 5.2 with the use of the Bactrim-DS. The CO2 39, remaining electrolytes grossly normal. BUN and creatinine was normal. IMPRESSION: 1. The patient was suspected to Pneumocystis pneumonia most likely secondary to venous pressure with corticosteroids, currently responding to treatment with empirical management. The negative stain for sputum induction does not rule out the possibility of current infection as a specimen could be inadequately taken. The ideal will be to have a bronchoscopy, which would not be done because of the patient's current overall status and cor status. 2. Mild hyperkalemia was also noted related to use of high dose of Bactrim sulfate. 3. Resolving acute pneumonia with Pseudomonas aeruginosa. PLAN OF TREATMENT: Discontinuation of the pseudomonas management for this patient at this time. Continue the Bactrim-DS orally. The patient will be given 15 grams of Kayexalate one dose to improve the hyperkalemia. Continue to monitor labs otherwise. Physical therapy, occupation therapy, transfer the patient to long-term acute care facility if the authorization obtained for this patient from the insurance today. The assessment, management and the discharge planning has been discussed with Dr. Alana Pearson as well. [place], [place] PROGRESS NOTE NAME: KAREL FLORES UNIT #: [id number] ROOM: 426 DOCTOR: MISHA CLARK MD BIRTHDATE: [birth year] MISHA GRIMALDO MD CM:THEA [id number] MISHA PLATA MD [id number] interface
[~2017-03-05 15:55] MED LIST changes: +MEROPENEM1 G1 IV
[2017-03-05 16:29] LABS: ABG BASE EXCESS 7.7 mmol/L (-2.0-2.0); ABG HCO3 32.3 mmol/l (22-26); ABG O2 SATURATION 84.9 % (95-97); ARTERIAL BLOOD GAS PCO2 47.2 mmHg (35-45); ARTERIAL BLOOD GAS PH 7.45 (7.35-7.45)
[2017-03-05 16:36] LABS: BASO % 0.1 % (0.0-1.0); EOS # 0.3 10*3/uL (0.0-0.4); EOS % 2.1 % (1.0-4.0); HEMATOCRIT 31.5 % (37.0-47.0); HEMOGLOBIN 10.1 g/dl (12.0-16.0); LYMPH # 1.2 10*3/uL (1.3-4.4); MEAN CELL VOLUME 82.7 fl (81.0-99.0); MEAN CORPUSCULAR HGB 26.5 pg (27.0-31.0); MEAN CORPUSCULAR HGB CONC 32.1 g/dl (33.0-37.0); MEAN PLATELET VOLUME 9.9 fl (9.6-12.3); MONO # 0.7 10*3/uL (0.1-1.0); MONO % 4.8 % (3.0-9.0); NEUT # 12.4 10*3/uL (2.3-7.9); NEUT % 84.5 % (47.0-73.0); PLATELET COUNT AUTOMATED 278 10*3/uL (130-400); RED BLOOD COUNT 3.81 10*6/uL (4.10-5.10); RED CELL DISTRI WIDTH 17.2 % (0-14.5); WHITE BLOOD COUNT 14.7 10*3/uL (4.8-10.8)
[2017-03-05 16:48] LABS: ACT PARTIAL THROMBO TIME 24.5 SECONDS (20.8-31.5); INTERNATIONAL NORM RATIO 0.9 (2.0-3.5)
[2017-03-05 16:53] LABS: ALBUMIN 2.8 gm/dl (3.1-4.5); ALKALINE PHOSPHATASE 64 U/L (45-117); BUN 7 mg/dl (7-24); CHLORIDE 98 mmol/L (98-107); CREATININE 0.68 mg/dL (0.55-1.02); POTASSIUM 3.5 mmol/L (3.5-5.1); SGOT/AST 16 IU/L (3-35); SGPT/ALT 24 U/L (12-78); SODIUM 137 mmol/L (136-145); TOTAL PROTEIN 6.6 gm/dL (6.4-8.2); TROPONIN I 0.029 ng/ml (<0.045)
--- NOTE | 2017-03-05 17:01 | NUR ---
PLACED ON BIPAP. SETTING 12/8, 10, O2 AT 50%. TOLERATING WELL AT THIS TIME. WILL CONTINUE TO MONITOR. JUSTIN WERNER RN
[2017-03-05] MEDS ORDERED: BREO ELLIPTA 11 EACH INH (17:30)
--- NOTE | 2017-03-05 18:05 | NUR ---
A 71, admitted to , under the services of ARDEN Thomas MD with a diagnosis of ACUTE CHRONIC RESPIRATORY FAILURE, MALNUTRITION, CHRONIC ANEMIA. Chief complaint is SHORTNESS OF BREATH. Patient arrived via ambulance from ER. Monitor applied. Initial assessment completed. Vital signs taken and recorded. ARDEN THOMAS MD notified of admission to the unit. Orders received. See assessment for past medical history, medications and allergies. Patient and/or family oriented to unit. visitation policy reviewed. Clothing/patient valuable form completed. SARIKA MRURAY
--- NOTE | 2017-03-05 18:57 | NUR ---
CALL PLACED TO NOTIFIED OF CONSULT
--- NOTE | 2017-03-05 19:47 | NUR ---
SPOKE WITH MIRYAM AT [facility] REGARDING PATIENT'S DAILY MEDICATIONS. STATES SHE WILL FAX OVER PATIENT'S MEDICATION LIST. FAX NUMBER TO HOSPITAL PROVIDED AT THIS TIME.
[2017-03-05] MEDS ORDERED: FLEET ENEMA EX230 M1 R (20:18)
[2017-03-05] MEDS ORDERED: GLUCAGON EMERGEN1 M1 IM (20:20)
--- NOTE | 2017-03-05 20:26 | NUR ---
MED REC UPDATED AT THIS TIME PER [facility] PAPERWORK.
--- NOTE | 2017-03-05 20:28 | NUR ---
PT TAKEN OFF 15L NRBM AND PLACED ON A 12L HFNC. PT SPO2 90%-92%. PT IS STABLE AND STATES THAT SHE FEELS OK.
[2017-03-06] VITALS: BP 165/59
--- NOTE | 2017-03-06 03:54 | NUR ---
PATIENT ASLEEP IN BED AT THIS TIME. RESPIRATIONS EASY. NO S/S OF DISTRESS NOTED ON BIPAP. WILL MONITOR. CALL LIGHT LEFT IN REACH.
[2017-03-06 08:00] VITALS: BP 170/50
--- NOTE | 2017-03-06 08:00 | NUR ---
SENIOR UNDERWRITING ASSISTANT VS. FAMILY MEMBER PRESENT. CAME FROM [facility] BUT IS NOT GOING TO RETURN. STATES DR BIGGS GETTING HER A TRILOGY. I SPOKE WITH SHAUN IN RESP AND HE WILL TRY TO ARRANGE. HAS HOME O2 THROUGH [facility]. REQUESTS HOME HEALTH WITH [facility] FOR NURSE AND PT. DR BIGGS AWARE PT PLANS TO RETURN HOME.
[2017-03-06 12:00] VITALS: BP 131/65
--- NOTE | 2017-03-06 15:25 | NUR ---
KAREL FLORES [id number] Please refer to the physician's history and physical for past medical history, comorbid conditions, and allergies. Diagnosis: ACUTE ON CHRONIC RESPIRATORY FAILURE,LEUKOCYTOSIS Sincere Score: 21,AT RISK WOUND DESCRIPTIONS: Location of the wound: left arm Type of wound: skin tear Thickness: Partial Size: 0.1cm x 0.8m x <0.1cm Tunneling: none Undermining: none Sinus Tract: none Presence of Exudate: none Amount: None Color: Red Odor: None Periwound Skin Appearance: Normal Wound edges: closed Pain (associated with wound): none at time of assessmne How does patient state this happened? pt unable to state how this happened but has several ecchymotic areas all over BUE and BLE Patient has dry areas to buttocks which is red and blanchable at this time. No open areas noted. No drainage noted. No odor noted. Surface the patient is resting on: Isoflex SKIN PREVENTION RECOMMENDATION: 1. Pressure redistribution support surface as appropriate 2. Elevate heels 3. Remove boots/TEDS every shift and reapply 4. Head of bed 30 degrees as tolerated 5. Assess nutrition and hydration 6. Manage moisture 7. Avoid the use of containment devices while in bed 8. Use absorptive products on surfaces limit layers of linens on bed 9. Turn and reposition every 1-2 hours in bed and every 1 hour in chair as tolerated 10. Weight shifts every 15 minutes while up in chair 11. Offloading with pillows or device to keep heels elevated off bed 12. Monitor skin at least every shift 13. Inspect under medical devices twice a day WOUND TREATMENT RECOMMENDATIONS: Left arm leave open to air intact scab. Buttocks cleanse with soap and water pat dry apply hydraguard cover with optifoam sacral gentle for protection change BID or PRN for soiling.
[2017-03-06 16:00] VITALS: BP 142/50
[2017-03-06 20:00] VITALS: BP 175/56
--- NOTE | 2017-03-06 20:55 | NUR ---
PATIENT REQUESTED AND RECEIVED PO XANAX PER PRN ORDER FOR C/O ANXIETY. WILL MONITOR EFFECTIVNESS. CALL LIGHT LEFT IN REACH.
[2017-03-07] VITALS: BP 149/52
--- NOTE | 2017-03-07 04:45 | NUR ---
PATIENT ASLEEP IN BED, AROUSES EASILY. NO S/S OF DISTRESS NOTED ON BIPAP. WILL CONTINUE TO MONITOR. CALL LIGHT LEFT IN REACH.
--- NOTE | 2017-03-07 05:31 | NUR ---
PATIENT TAKEN OFF OF BIPAP AT THIS TIME AND PLACED ON 12L HI FLOW NASAL CANNULA. PATIENT'S POX CURRENTLY 92%. RESPIRATORY THERAPY NOTIFIED. WILL MONITOR. CALL LIGHT LEFT IN REACH.
--- NOTE | 2017-03-07 06:35 | NUR ---
PATIENT ASSISTED UP TO BSC AND BACK TO BED AT THIS TIME. DRESSING TO COCCYX CHANGED PER ORDER. PATIENT LEFT WITH BED LOCKED IN LOW POSITION, CALL LIGHT IN REACH. WILL MONITOR.
[2017-03-07 07:12] LABS: HEMATOCRIT 30.7 % (37.0-47.0); HEMOGLOBIN 9.8 g/dl (12.0-16.0); LYMPH # 0.5 10*3/uL (1.3-4.4); MEAN CELL VOLUME 82.3 fl (81.0-99.0); MEAN CORPUSCULAR HGB 26.3 pg (27.0-31.0); MEAN CORPUSCULAR HGB CONC 31.9 g/dl (33.0-37.0); MEAN PLATELET VOLUME 10.3 fl (9.6-12.3); MONO # 0.1 10*3/uL (0.1-1.0); MONO % 1.5 % (3.0-9.0); NEUT % 87.4 % (47.0-73.0); PLATELET COUNT AUTOMATED 275 10*3/uL (130-400); RED BLOOD COUNT 3.73 10*6/uL (4.10-5.10); RED CELL DISTRI WIDTH 17.1 % (0-14.5); WHITE BLOOD COUNT 4.6 10*3/uL (4.8-10.8)
[2017-03-07 07:39] LABS: ALBUMIN 3.1 gm/dl (3.1-4.5); CHLORIDE 94 mmol/L (98-107); POTASSIUM 4.4 mmol/L (3.5-5.1); SODIUM 135 mmol/L (136-145)
[2017-03-07 07:49] LABS: ALKALINE PHOSPHATASE 63 U/L (45-117); BUN 11 mg/dl (7-24); CREATININE 0.89 mg/dL (0.55-1.02); SGOT/AST 16 IU/L (3-35); SGPT/ALT 20 U/L (12-78); TOTAL PROTEIN 6.9 gm/dL (6.4-8.2)
[2017-03-07 08:00] VITALS: BP 136/50
--- NOTE | 2017-03-07 08:00 | NUR ---
PATIENT AWAKE, ALERT, & ORIENTED X3. LUNGS DIMINISHED BILATERALLY WITH CRACKLES IN THE LEFT BASE. PATIENT STILL C/O PRODUCTIVE COUGH AT TIMES FOR LIGHT YELLOW SPUTUM. NO EDEMA NOTED. PICC PATIENT IN RIGHT ARM. CALL LIGHT WITHIN REACH.
--- NOTE | 2017-03-07 09:01 | NUR ---
DR BIGGS HAS TALKED TO PT ABOUT GOING TO [facility]. PT AGREES TO GO. DC LAYOUT DESIGNER WILL MAKE REFERRAL.
--- NOTE | 2017-03-07 10:22 | NUR ---
Patient agreed to [facility], given list of agencies patient chose [facility], contacted Shraddha Ly and faxed referral. She stated she will be here today around lunch time to assess this patient. Will follow.
[2017-03-07 12:00] VITALS: BP 133/48
--- NOTE | 2017-03-07 12:18 | NUR ---
Shraddha from [facility] called and stated she is stuck in a meeting and will be in to evaluate this patient tomorrow morning.
[2017-03-07 16:00] VITALS: BP 166/55
[2017-03-07 20:00] VITALS: BP 165/62
--- NOTE | 2017-03-07 21:51 | NUR ---
PRN XANAX GIVEN FOR PT COMPLAINTS OF ANXIETY. CALL LIGHT WITHIN REACH, WILL MONITOR
--- NOTE | 2017-03-07 23:00 | NUR ---
PRN MEDICATION APPEARS EFFECTIVE, PT SLEEPING
[2017-03-08] VITALS: BP 137/57
--- NOTE | 2017-03-08 00:33 | NUR ---
24 HR chart check completed.
[2017-03-08 05:53] LABS: HEMATOCRIT 27.9 % (37.0-47.0); MEAN CELL VOLUME 83.3 fl (81.0-99.0); MEAN CORPUSCULAR HGB 26.9 pg (27.0-31.0); MEAN CORPUSCULAR HGB CONC 32.3 g/dl (33.0-37.0); MEAN PLATELET VOLUME 10.4 fl (9.6-12.3); PLATELET COUNT AUTOMATED 263 10*3/uL (130-400); RED BLOOD COUNT 3.35 10*6/uL (4.10-5.10); RED CELL DISTRI WIDTH 17.2 % (0-14.5)
[2017-03-08 06:10] LABS: ALBUMIN 2.8 gm/dl (3.1-4.5); ALKALINE PHOSPHATASE 53 U/L (45-117); BUN 14 mg/dl (7-24); CHLORIDE 94 mmol/L (98-107); CREATININE 0.91 mg/dL (0.55-1.02); POTASSIUM 5.2 mmol/L (3.5-5.1); SGOT/AST 10 IU/L (3-35); SGPT/ALT 17 U/L (12-78); SODIUM 136 mmol/L (136-145); TOTAL PROTEIN 6.3 gm/dL (6.4-8.2)
[2017-03-08 07:02] LABS: ACANTHOCYTES MODERATE; PLATELET SUFFICIENCY NORMAL (NORMAL); TOTAL CELLS COUNTED 100 #CELLS
[2017-03-08 07:03] LABS: SCHISTOCYTES FEW
[2017-03-08 08:00] VITALS: BP 146/50
[2017-03-08] MEDS ORDERED: SOLU-MEDRO40 MG/1 ML IV (08:19)
[2017-03-08] MEDS ORDERED: SEPTDS PO (08:19)
[2017-03-08] MEDS ORDERED: DUONEB 3 MG/3 ML3 M1 NEB (08:19)
--- NOTE | 2017-03-08 11:27 | NUR ---
Patient accepted to [facility] and is discharged. Transportation set up for 12:00 noon with [facility]. Patient will transport with 10 liter of oxygen and with heart monitor. Notified [facility] of time, also notified nursing.
--- NOTE | 2017-03-08 12:24 | NUR ---
Discharge instructions reviewed with patient/family. Patient receptive and verbalizes understanding. Follow-up care arranged. Written instructions given to patient/family. PT LEFT FLOOR VIA [facility] IN THE CARE OF [facility]. PACKET SENT WITH PT. CARSON ROBIN
--- NOTE | 2017-03-08 12:47 | NUR ---
CALLED REPORT TO LORET[facility] AT [facility]
== END 2017-03-08 12:24 | DRG 177 ==
LOC: ED 15:55 → EDHOLD 17:33 → 4E 17:33
PROVIDERS: Internal Medicine Critical Care Medicine; Nurse Practitioner Family; ADMIT Internal Medicine
PROC: 5A09357 Assistance with Respiratory Ventilation, Less than 24 Consecutive Hours, Continuous Positive Airway Pressure (ICD-10-PCS; principal; 2017-03-05)
PROC: 5A09357 Assistance with Respiratory Ventilation, Less than 24 Consecutive Hours, Continuous Positive Airway Pressure (ICD-10-PCS; 2017-03-06)
PROC: 5A09357 Assistance with Respiratory Ventilation, Less than 24 Consecutive Hours, Continuous Positive Airway Pressure (ICD-10-PCS; 2017-03-07)
DX: J15.1 Pneumonia due to Pseudomonas (principal); J96.21 Acute and chronic respiratory failure with hypoxia; E46 Unspecified protein-calorie malnutrition; J44.1 Chronic obstructive pulmonary disease with (acute) exacerbation; J44.0 Chronic obstructive pulmonary disease with (acute) lower respiratory infection; E87.5 Hyperkalemia; J84.10 Pulmonary fibrosis, unspecified; J84.113 Idiopathic non-specific interstitial pneumonitis; D64.9 Anemia, unspecified; D72.829 Elevated white blood cell count, unspecified; I10 Essential (primary) hypertension; M81.0 Age-related osteoporosis without current pathological fracture; Z96.1 Presence of intraocular lens; F41.9 Anxiety disorder, unspecified; T38.0X5A Adverse effect of glucocorticoids and synthetic analogues, initial encounter; R73.9 Hyperglycemia, unspecified; R62.7 Adult failure to thrive; E78.2 Mixed hyperlipidemia; Z86.73 Personal history of transient ischemic attack (TIA), and cerebral infarction without residual deficits; Y92.89 Other specified places as the place of occurrence of the external cause; Z79.02 Long term (current) use of antithrombotics/antiplatelets; Z79.899 Other long term (current) drug therapy; Z88.8 Allergy status to other drugs, medicaments and biological substances; Z87.01 Personal history of pneumonia (recurrent); Z90.49 Acquired absence of other specified parts of digestive tract; Z98.42 Cataract extraction status, left eye; Z98.41 Cataract extraction status, right eye; Z87.891 Personal history of nicotine dependence; Z68.24 Body mass index [BMI] 24.0-24.9, adult